=== PATIENT | female | born 1980 | race Hispanic/Latino ===

== ENCOUNTER 2021-04-27 08:15 | Emergency (ER) | payer BC ==
--- OUTSIDE RECORDS SUMMARY | 2021-04-27 08:18 | XMS REPORT | Clinical Summary ---
:1980 Author Organization [facility] Center Address [address] [place] [address] Care Team Providers Name Role Phone MD Shanthi Primary Care Provider Allergies Active Allergy Reactions Severity Noted Date Comments Oxycodone Other (See Comments), GI 09/03/2017 Mitch sea, vomiting, dizzy Intolerance Trazodone GI Intolerance 09/03/2017 Medications Medication Sig Dispensed Refills Start Date End Date Status cholecalciferol, Take 400 Units by 0 Active vitamin D3, mouth. (VITAMIN D3) 4,000 units tab tablet ibuprofen Take 200 mg by 0 Activ e (ADVIL,MOTRIN) mouth every 8 200 mg (eight) hours as tabletIndication needed. s: pain vit D3/folic Take 1 tablet by 0 Active acid/B2/B6/B12 mouth daily. (FOLGARD ORAL) aspirin 81 mg EC Take 81 mg by 0 Active tablet mouth daily. omeprazole Take 20 mg by 0 Activ e (PriLOSEC) 20 mg mouth daily. capsule bisacodyl Take 1 tablet by 0 Act diana (EX-LAX ULTRA mouth as needed. ORAL) FABB 2.2-25-1 mg TAKE 1 TABLET BY 11 01/30/2019 Active tab MOUTH DAILY. TRINTELLIX 20 mg Take 1 tablet by 0 02/15/2019 Active tab mouth daily. L. Take 1 tablet by 0 Act diana acidophilus/Bifi mouth daily. d. animalis (DAILY PROBIOTIC ORAL) diazePAM Take 2 mg by 0 Active (VALIUM) 2 mg mouth as needed. tablet ALPRAZolam Take 0.5 mg by 0 Acti ve (XANAX) 0.5 mg mouth at bedtime. tablet sodium,potassium Take 1 Package by 354 mL 0 11/05/201908/11 Discontinued ,mag sulfates mouth See Admin 21 (Reorder) (Suprep Bowel Instructions. Prep Kit) Please take as 17.5-3.13-1.6 per Suprep gram instructions solrIndications: Colonoscopy planned, Personal history of other malignant neoplasm of colon sodium,potassium Take 1 Package by 354 mL 0 08/22/202008/11 ,mag sulfates mouth See Admin 21 (Suprep) Instructions for 17.5-3.13-1.6 2 days. Please gram take as per solrIndications: Suprep Colonoscopy instructions planned, Personal history of other malignant neoplasm of colon Active Problems Problem Noted Date Personal history of colonic polyp 11/06/2019 Overview: Added automatically from request for angélica mack [id number] Colon cancer 02/04/2018 Overview: Added automatically from request for angélica mack [id number] Mandatory [facility] ICD-10 2020 UPDATE Anxiety 10/18/2017 Mass of colon 10/17/2017 Cancer of ascending colon 10/06/2017 Cancer Staging: Pathologic stage from : Stage I (pT1, pN0, cM0) - Unsigned Overview: Added automatically from request for angélica mack [id number] Mandatory [facility] ICD-10 2020 UPDATE Encounters Date Type Specialty Care Team Description 08/25/2020 Anesthesia Event Endoscopy Akhil Mancini MD Amakwe, Pamela, CRNA 08/25/2020 Hospital Encounter Endoscopy Javid Minaya history of colonic polyp (Primary Dx); MD Jocelyn Colon cancer, n ot otherwise specified 08/25/2020 Surgery Endoscopy Javid Minaya MD COLONOSCOPY PROXIMAL TO SPLENIC FLEXURE WITH BIOPSY 08/25/2020 Travel 08/24/2020 POEM Appointments Anesthesiology Shanthi No Prakash Drake MD 08/24/2020 Clinical Support Infectious Diseases Shanthi Arias bservation and Prakash MD evaluation for Norma Herrera suspected exp osure Artie, MA to other biological agen t (Primary Dx) 08/24/2020 Travel 08/23/2020 Anesthesia Event Anesthesiology Mike Velasco, RN 08/22/2020 Orders Only Endoscopy Karlene Gan, Colonoscopy planned; SERVICE CLEANER Personal histor y of other malignant neoplasm of colon 08/19/2020 Orders Only GastroenterElvia meng Rose M, Pre pro cedural Hepatology & Nutrition SERVICE CLEANER labor atory examination (Primary Dx) 08/18/2020 Telephone GastroenterologyBianca Rey Hepatology & Nutrition SAMMY Florentino 07/27/2020 Orders Only Infectious Diseases Alli, SARS-CoV -2 MD Roddy vaccination after 04/27/2020 Immunizations Name Administration Dates Next Due Influenza, Quadrivalent 03/26/2016 Influenza, Unspecified 02/14/2018 Surgical History Surgery Date Site/Laterality Comments KS EXPLORATORY OF ABDOMEN 10/18/2017 Abdomen/Midline Proced ure: EXPLORATORY CELIOTOMY (LAPAROTOMY); S urgeon: Prakash Maki MD; Location: MAIN OR; Servic e: SURG ONC - COLORECTAL Medical devices from this surgery are in t he Implants section. KS REMVL COLON & TERM ILEUM 10/18/2017 Abdomen/Midline Proc edure: PARTIAL COLECTOMY, W/ILEOCOLOSTOMY right hemicolect brii; Surgeon: Prakash Reddy MD; Location: MAIN O R; Service: SURG ONC - COLOR ECTAL Medical devices from this surgery are in t he Implants section. KS COLONOSCOPY FLX DX 08/21/2018 N/A Procedure: DIAGNOSTIC FLEXIBLE W/COLLJ SPEC WHEN PFRMD COLONOSC OPY PROXIMAL TO SPLENIC FLEXURE; Surgeo n: Javid Minaya MD; Loca tion: MAIN ENDOSCOPY; Serv ice: GASTROENTEROLOGY [place] COLONOSCOPY FLX DX 11/06/2019 N/A Procedure: DIAGNOSTIC FLEXIBLE W/COLLJ SPEC WHEN PFRMD COLONOSC OPY PROXIMAL TO SPLENIC FLEXURE; Surgeo n: Javid Minaya MD; Loca tion: MAIN ENDOSCOPY; Serv ice: GASTROENTEROLOGY ; f/up 2 years KS COLONOSCOPY W/BIOPSY 08/25/2020 N/A Procedur e: FLEXIBLE COLONOSCOPY SINGLE/MULTIPLE PROXIMAL TO SPLE JENNA FLEXURE WITH BIOPSY; Surgeon : Javid Minaya MD; Loca tion: MAIN ENDOSCOPY; Serv ice: GASTROENTEROLOGY Medical History Medical History Date Comments Chronic diarrhea Adenocarcinoma of ascending colon 10/18/2017 INVASI VE, MODERATELY DIFFERENTIATED ADENOCARCINOMA ARISI NG IN A 4.3 CM VILLOUS ADENOMA WITH HIGH GRADE DYSPLASIA Villous adenoma of colon 09/23/2017 s/p polypectomy Benign polyp of colon 09/23/2017 s/p polypectomy Tubular adenoma of colon 11/06/2019 s/p polypectomy Family History Medical History Relation Name Comments -Gastrointestinal Cousin bile duct canc er; maternal (Esophagus, Liver, Bile first co usin Duct, Stomach, Pancreas, Colon, Rectum, Anus Colon cancer Father -Gastrointestinal Paternal Grandfather esophagea l vs stomach cancer (Esophagus, Liver, Bile Duct, Stomach, Pancreas, Colon, Rectum, Anus Cervical cancer Paternal Grandmother Relation Name Status Comments Cousin Father Paternal Grandfather Paternal Grandmother Social History Tobacco Use Types Packs/Day Years Used Date Former Smoker Cigarettes 1 6 Quit: 10/18/19 04 Smokeless Tobacco: Never Used Tobacco Cessation: Counseling Given: No Sex Assigned at Date Recorded Not on file Obstetrics History Last Filed Vital Signs Vital Sign Reading Time Taken Comments Blood Pressure 112/79 08/25/2020 8:55 AM CDT Pulse 70 08/25/2020 8:55 AM CDT Temperature 36 C (96.8 F) 08/25/2020 8:35 AM CDT Respiratory Rate 17 08/25/2020 8:55 AM CDT Oxygen Saturation 99% 08/25/2020 8:55 AM CDT Inhaled Oxygen Concentration - - Weight 68.4 kg (150 lb 12.7 oz) 08/25/2020 7:12 AM CDT Height - - Body Mass Index 24.34 09/27/2017 8:43 AM CDT Plan of Treatment Date Type Specialty Care Team Description 11/05/2021 Clinical Support Infectious Diseases Prakash Maki MD [address] [place] [address] 11/07/2021 Hospital Encounter Endoscopy Javid Minaya MD [facility] [place], [place] [address] 11/07/2021 Surgery Endoscopy Javid Minaya DIAGNOSTIC FL THIERRY Banks MD COLONOSCOPY PROXIMAL [address] TO SPLENIC FLE XURE [place], [place] [address] 08/26/2023 Hospital Encounter Endoscopy Javid Minaya MD [address] [place], [place] [address] Name Priority Associated Diagnoses Date/Time DIAGNOSTIC FLEXIBLE Colon cancer, not 11/07/2021 9:40 AM CDT COLONOSCOPY PROXIMAL TO otherwise specif ied SPLENIC FLEXURE Personal history of colonic polyp DIAGNOSTIC FLEXIBLE Personal history of COLONOSCOPY PROXIMAL TO colonic polyp SPLENIC FLEXURE Health Maintenance Due Date Last Done Comments COVID-19 Vaccination (1) 10/30/1983 Implants Implanted Type Area Fire Equipment Repairer Inspector Device Shelf Model / Identifier Expiration Date Ser ial / Lot [employer] - [id number] Implant GENZYME 09/10/19 20 [id number] / Implanted: Qty: 1 on 10/18/2017 by Yomaira Maki MD at [facility] BIOSURGERY / [id number] Procedures Procedure Name Priority Date/Time Associated Comments Diagnosis PATHOLOGY BIOPSY Routine 08/25/2020 8:16 Colon cancer, not Re sults for this INTERPRETATION AM CDT otherwise specified proced ure are in the results section. FLEXIBLE COLONOSCOPY 08/25/2020 7:43 Colon cancer, no t PROXIMAL TO SPLENIC AM CDT otherwise specified FLEXURE WITH BIOPSY ENDOSCOPY NOTE RESULTS 08/25/2020 7:41 R esults for this AM CDT procedure are i n the results section. COVID-19 (SARS-COV-2) Routine 08/24/2020 8:02 Observation and Results for this PCR-ASYMPTOMATIC [facility] AM CDT evaluation for proced ure are in suspected exposure the resul ts to other biological section. agent .GLOMERULAR FILTRATION Routine 08/22/2020 12:11 Pre procedural Results for this RATE PM CDT laboratory procedure are i n examination the results section. SERUM CREATININE Routine 08/22/2020 12:11 Pre procedural Resul ts for this PM CDT laboratory procedure are i n examination the results section. SERUM CREATININE Routine 08/22/2020 12:11 Pre procedural PM CDT laboratory examination BLOOD UREA NITROGEN Routine 08/22/2020 12:11 Pre procedural Re sults for this PM CDT laboratory procedure are i n examination the results section. after 04/27/2020 Results Pathology Biopsy Interpretation (08/25/2020 8:16 AM CDT) Pathologist Sig nature Diagnosis A: Rectum, 2 mm polyps x2, biopsy: [facility] Gross Description A: [facility] Rectum, 2mm rectum polyps x 2: Consists of 2 pink soft tissue fragments measuring 0.3 cm each. Filtered, entirely submitted in A1. JA Disclaimer "Some tests reported [facility] here may have been developed and performance characteristics determined by [facility]. These tests have not been specifically cleared or approved by the U.S. Food and Drug Administration. If applicable, controls were reviewed and showed appropriate reactivity." Specimen Tissue - Rectum Performing Organization Address City/State/[place] [address] [address] [facility] ENDOSCOPY NOTE RESULTS (08/25/2020 7:41 AM CDT) Narrative This result has an attachment that is no t available. Procedure Note Javid Minaya MD - 08/25/2020 7:41 AM CDT Patient Name: Naya Gaona Gender: Female Age: 39 Procedure Date No Time: 08/25/2020 Instrument Name: [id number] COLON - CF Proceduralist(s): JAVID GRAJEDA CH, MD Procedure Name: Colonoscopy Scope In: 8:01:24 AM Scope Out: 8:17:12 AM Scope Withdrawal Time 0 hours 12 minutes 38 seconds Total Procedure Duration Time 0 hours 15 minutes 48 seconds Indications: High risk colo n cancer surveillance: Personal history of col on cancer post R hemicolectomy Medications: TIVA Procedure Description: Pre-Anesthesia Assessment: - Prior to the procedure, a History and Physical was performed, and patient medications and allergies were reviewed. The risks and benefits of the procedure and the sedation options and risks were discussed with the patient. All questions were answered and i nformed consent was obtained. Patient identification and proposed procedure were verified by the physici an in the pre-procedure area. Prophylactic A ntibiotics: The patient does not require prophy lactic antibiotics. Prior Anticoagulants : The patient has taken no anticoagulant or antiplatelet agents. ASA Grade Assessment: I - A normal, healthy patient. After reviewing the risks and benefits, the patient was deemed in sati sfactory condition to undergo the procedure. The anesthesia plan was to use TIVA. Immediately pr ior to administration of medications, the patient wa s re-assessed for adequacy to receive sedatives. The heart rate, respiratory rate, oxygen saturations, b lood pressure, adequacy of pulmonary ventilation, a nd response to care were monitored throughout the procedure. The physical status of the patient wa s re-assessed after the procedure. Informed conse nt was obtained. Throughout the procedure, the patient's blood pressure, pulse, and oxygen saturat ions were monitored continuously.The Olympus CF-HQ1 [id number] ([id number]) adult colonoscope was introduced thr ough the anus and advanced to the ileocolonic an astomosis. The anastomosis and the rectum were ph otographed. The colonoscopy was performed with out difficulty. The patient tolerated the procedure well. The quality of the bowel preparation wa s excellent. Findings: Diverticula we re found in the sigmoid colon. Two polyps wer e found in the rectum. The polyps were 2 to 3 mm in size. There was evid ence of a prior unho-wz-pyoh ileo-colonic a nastomosis in the transverse colon. Complications: No immediate c omplications. Estimated Blood Loss: Estimated bloo d loss: none. Post Procedure Diagnosis: - Diverticulos is in the sigmoid colon. - Two 2 to 3 m m polyps in the rectum. - Rhle-lj-rhqn ileo-colonic anastomosis. - No specimens collected. Recommendation: - Repeat colon oscopy in 3 years for surveillance. - Patient has a contact number available for emergencies. T he signs and symptoms of potential delayed compli cations were discussed with the patient. Retur n to normal activities tomorrow. Written discha rge instructions were provided to the patient. - Resume previ ous diet. - Continue pre sent medications. - Discharge pa tient to home. Attending Participation: I personally p erformed the entire procedure. JAVID MINAYA MD 08/25/2020 8:27:38 AM This report has been signed electronical ly. Number of Addenda: 0 COVID-19 (SARS-CoV-2) PCR-Asymptomatic (08/24/2020 8:02 AM CDT) COVID19 (SARS Not Detected Not Detected [facility] CoV-2) Result Comment: [facility] This test is a qualitative r everse-transcriptase polymerase chain reaction (RT- PCR) developed for the Deborah QAMAR 6800 system and intended for the detection of SARS CoV-2 RNA in human nasopharyngeal specimens from patients who meet COVID-19 clinical and/or epidemiological crite gio. This assay has been approved by the FDA for use only under Emergency Use Authorization (EUA) in laboratories that have been CLIA-certified to perform moderate-complexity and high-complexity tests. The performance characteristics of this assa y were verified by the Microbiology Laboratory at [facility], CLIA Accreditation #: [id number] and CAP Accreditation #: [id number]. Results must be interpreted within the context of all relevant clinical and laboratory findings and shou ld not form the sole basis for a diagnosis or treatment decision. "Presumptive Positive" resul ts are due to partial amplification of SARS-CoV-2 targets and indicates low amounts of virus present in the specimen at or near the limit of detection. Regardless, individuals with "Presumptive Positive" results should be managed per institutional gu idelines as individuals positive for SARS-CoV-2 virus, including use of appropriate infection control protocols. Internal controls are includ ed to assess for possible amplification inhibitors. If inhibition is detected, testing is repeated and if inhibition is confirmed the specimen is resulted as "Invalid". When an "Invalid" result occur, it is recommended to wait 3 days before submitting a new specimen for uziel ting if clinically indicated. COVID19 SARS SERVICE CLEANER Swab [facility] Source CANCER CENTER COVID19 SARS Pre-Out of OR [facility] Indication Procedure [facility] CENTER Specimen Nasopharyngeal Swab Performing Organization Address City/State/ZIP Code Phon e Number [facility] CANCER Unless otherwise noted, [place] [address] CENTER all lab tests performed by: Division of Pathology and Laboratory Medicine [address] Diane (ABNORMAL) .Serum Creatinine (08/22/2020 12:11 PM CDT) Pathologist Sig nature Creatinine 0.96 (H)Comment: 0.51 - 0.95 mg/dL ASH Testing performed at [facility], [facility] [facility], [place] [address] Specimen Blood Narrative ASH - 08/22/2020 12:51 PM CDT Please schedule at [place] location Performing Organization Address City/State/ZIP Code Phon e Lyla [facility] [place] [address] [address] [facility] Glomerular Filtration Rate (08/22/2020 12:11 PM CDT) Pathologist Sig nature eGFR-AA 85 >=60 mL/min/1.73 ASH Comment: sq. m Normal eGFR >= 60 mL/min/1.73 m2 Note: The eGFR is calculated using the CKD-EPI equation. The eGFR declines with age. eGFR <60 mL/min/1.73 m2 is considered as "decreased". This equation should only be used for patients 18 and older. According to the National [facility]'s Kidney Disease Outcome Quality Initiative (KDOQI) classification and 2012 Kidney Disease Improving Global Outcomes (KDIGO) Clinical Practice Guideline, the stage of CKD should be categorized based on estimated GFR. Stage Description GFR mL/min/1.73 m2 1 Normal or high GFR >=90 2 Mildly decreased GFR 60-89 3a Mildly to moderately decreased GFR 45-59 3b Moderately to severely decreased GFR 30-44 4 Severely decreased GFR 15-29 5 Kidney failure <15 Testing performed at [facility], [address] [facility], [place] [address] eGFR-TIMOTHY 74 >=60 mL/min/1.73 ASH Comment: sq. m Normal eGFR >= 60 mL/min/1.73 m2 Note: The eGFR is calculated using the CKD-EPI equation. The eGFR declines with age. eGFR <60 mL/min/1.73 m2 is considered as "decreased". This equation should only be used for patients 18 and older. According to the National [facility]'s Kidney Disease Outcome Quality Initiative (KDOQI) classification and 2012 Kidney Disease Improving Global Outcomes (KDIGO) Clinical Practice Guideline, the stage of CKD should be categorized based on estimated GFR. Stage Description GFR mL/min/1.73 m2 1 Normal or high GFR >=90 2 Mildly decreased GFR 60-89 3a Mildly to moderately decreased GFR 45-59 3b Moderately to severely decreased GFR 30-44 4 Severely decreased GFR 15-29 5 Kidney failure <15 Testing performed at [facility], [address] [facility], [place] [address] Specimen Blood Narrative ASH - 08/22/2020 12:51 PM CDT Please schedule at [place] location Performing Organization Address City/[facility]/[place] [address] [address] [facility] BUN (08/22/2020 12:11 PM CDT) Pathologist Sig nature BUN 14Comment: Testing 6 - 23 mg/dL ASH performed at [facility], [address] [facility], [place] [address] Specimen Blood Narrative ASH - 08/22/2020 12:51 PM CDT Please schedule at [place] location Performing Organization Address City/[facility] [place] [address] [address] [facility] after 04/27/2020 Insurance Payer Benefit Plan / Subscriber ID Effective Dates Phone Addre ss Type Group BLUE CROSS BCBS PPO POS [id number] 2019-Present [address] PPO BLUE SHIELD OUT OF STATE [place], [place] GENERIC [address] (Home) [place] [phone] Naya Gaona Personal/Family Self [address] (Home) [place] [phone] Naya Gaona Personal/Family Self [address] (Home) [place] [id number] Advance Directives Code Status Date Activated Date Inactivated Comments Full Code 10/18/2017 4:01 PM 10/22/2017 4:09 PM Care Teams 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
--- OUTSIDE RECORDS SUMMARY | 2021-04-27 08:18 | XMS REPORT | Continuity of Care Document ---
:1980 Author Organization [facility] t Address [address] [place] [address] Care Team Providers Name Role Phone GREGORIO Primary Care Physician Unavailable Jocelyn MINAYA Attending Clinician Unavailable WILBERT Attending Clinician Unavailable Jocelyn Minaya MD Attending Clinician Rufus Mancini MD Attending Clinician Wilbert VELASCO Attending Clinician Gregorio MEAD Attending Clinician GREGORIO Attending Clinician Unavailable Artie Herrera MA Attending Clinician Unavailable Krista CHRISTIANSON Attending Clinician Unavailable Keshia GAN Attending Clinician Unavailable [facility] Attending Clinician Unavailable Unknown Attending Clinician Unavailable UNKNOWN Attending Clinician Unavailable Keshia Gan NP Attending Clinician Mishel Valenzuela RN Attending Clinician Unavailable Alli MEAD Attending Clinician DANIELA Attending Clinician Unavailable NANI Attending Clinician Unavailable MARY Attending Clinician Unavailable Jocelyn MINAYA Admitting Clinician Unavailable Payers Payer Name Policy Type Policy Number Effective Date Expiration Date S nataliya [place] POS [id number] 2018 2019 00:00:0 0 00:00:00 Problems Condition Condition Condition Status Onset Resolution Last Treating Co mments Source Name Details Category Date Date Treatment Clinician Date Personal Personal Disease Active Overview: history of history of 6-26 Formattin Anderso colonic colonic 00:00: g of this n polyp polyp 00 note might be different from the original. Added automatic ally from request for surgery [id number] Colon Colon Disease Active Overview: cancer cancer 9-25 Formattin Anderso 00:00: g of this n 00 note might be different from the original. Added automatic ally from request for surgery [id number] datory [facility] ICD-10 2020 UPDATE Anxiety Anxiety Disease Active 6-08 Anderso 00:00: n 00 Mass of Mass of Disease Active MD colon colon 6-07 Anderso 00:00: n 00 Cancer of Cancer of Disease Active Overview: ascending ascending 5-27 Formattin A nderso colon colon 00:00: g of this n 00 note might be different from the original. 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 1- ity of 00:00: [place] [address] [place] [address] Branch MTHFR MTHFR Disease Active [facility] mutation mutation ity of [facility] Allergies, Adverse Reactions, Alerts Allergy Allergy Status Severity Reaction(s) Onset Inactive Treating Comm ents Source Name Type Date Date Clinician NO KNOWN Drug Active Univers ALLERGIE Class ity of [facility] Family History Family Member Diagnosis Comments Start Date Stop Date Source Cousin -Gastrointestinal MD Momo barajas (Esophagus, Liver, Bile Duct, Stomach, Pancreas, Colon, Rectum, Anus Natural father Colon cancer MD Sanchez son Paternal grandfather -Gastrointestinal MD Lopez (Esophagus, Liver, Bile Duct, Stomach, Pancreas, Colon, Rectum, Anus Paternal grandmother Cervical cancer MD Lopez Social History Social Habit Start Date Stop Date Quantity Comments Source Exposure to Not sure University of SARS-CoV-2 (event) [facility] Alcohol intake 2018-01-16 2018-01-16 Current drinker Univvelma rsity of 00:00:00 00:00:00 of alcohol [facility] (finding) [place] Cigarettes smoked 2017-10-17 2017-10-17 MD Momo barajas current (pack per 00:00:00 00:00:00 day) - Reported Cigarette 2017-10-17 2017-10-17 MD Lopez pack-years 00:00:00 00:00:00 Tobacco use and 2017-10-17 2017-10-17 Smokeless MD Fox on exposure 00:00:00 00:00:00 tobacco non-user Alcohol Comment 2016-03-26 2016-03-26 rarely = Universit y of 00:00:00 00:00:00 previous heavy [facility] use [place] History of tobacco 2012-05-13 Smoker Univer marcey of use 00:00:00 [facility] Sex Ass[birth year] At [birth year] MD Fox on 00:00:00 00:00:00 Smoking Status Start Date Stop Date Source Former smoker 2018-01-16 00:00:00 2018-01-16 00:00:00 [facility] Medications Ordered Filled Start Stop Current Ordering Indication Dosage Frequency Signature Comments Components Source Medication Medication Date Date Medication? Clinician (SIG) Name Name ALPRAZolam Yes .5mg Take 0.5 MD (XANAX) 0.5 4-15 mg by Anderso mg tablet 09:10: mouth at n 24 bedtime. cholecalcif Yes 400U Take 400 MD [place], 4-15 Units by Anderso vitamin D3, 09:10: mouth. n (VITAMIN 24 D3) 4,000 units tab tablet ibuprofen Yes pain 200mg Take 200 MD (ADVIL,MOTR 4-15 mg by Anderso IN) 200 mg 09:10: mouth n tablet 24 every 8 (eight) hours as needed. vit Yes 1{tbl} Take 1 MD D3/folic 4-15 tablet by Ruddy o acid/B2/B6/ 09:10: mouth n B12 24 daily. (FOLGARD ORAL) aspirin 81 Yes 81mg Take 81 mg M D mg EC 4-15 by mouth Anderso tablet 09:10: daily. n 24 omeprazole Yes 20mg Take 20 mg M D (PriLOSEC) 4-15 by mouth Daniel so 20 mg 09:10: daily. n capsule 24 bisacodyl Yes 1{tbl} Take 1 MD (EX-LAX 4-15 tablet by Anderso ULTRA ORAL) 09:10: mouth as n 24 needed. L. Yes 1{tbl} Take 1 MD acidophilus 4-15 tablet by And erso /Bifid. 09:10: mouth n animalis 24 daily. (DAILY PROBIOTIC ORAL) diazePAM Yes 2mg Take 2 mg MD (VALIUM) 2 4-15 by mouth Daniel so mg tablet 09:10: as needed. n 24 sodium,pota 0 2020- No Personal 1{packa Take 1 MD ssium,mag 4-12 04-15 history of ge} Package by Anderso sulfates 00:00: 04:59 other mouth See n (Suprep) 00 :00 malignant Admin 17.5-3.13-1 neoplasm of Instructio .6 gram colon ns for 2 solr days. Please take as per Suprep instructio ns sodium,pota 2020- No Personal 1{packa Take 1 MD ssium,mag 6-25 04-12 history of ge} Package by Anderso sulfates 00:00: 00:00 other mouth See n (Suprep 00 :00 malignant Admin Bowel Prep neoplasm of Instructio Kit) colon ns. 17.5-3.13-1 Please .6 gram take as solr per Suprep instructio ns TRINTELLIX 2018-05 Yes 1{tbl} Take 1 MD 20 mg tab 0-06 tablet by Daniel so 00:00: mouth n 00 daily. FABB Yes TAKE 1 MD 2.2-25-1 mg 9-20 TABLET BY And erso tab 00:00: MOUTH n 00 DAILY. Folic Yes [id number] 1{tbl} Take 1 Uni vers Acid-Vit 9-28 tablet by ity of B6-Vit B12 00:00: mouth [place] (FOLGARD 00 daily. Medical RX) Branch 2.2-25-1 mg Tab pantoprazol Yes 20mg Take 1 Univ ers e 20 mg EC 9-21 tablet by ity of tablet 00:00: mouth 2 [place] 00 (two) Medical times Branch daily. Lactobacill Yes [id number] 1{capsu Take 1 Univers us 9-20 le} capsule by ity of rhamnosus 00:00: mouth [place] GG 00 daily. Medical (CULTURELLE Branch ) 15 billion cell CpSP aspirin 81 2017- Yes 81mg Take 81 mg U nivers mg EC 9-06 by mouth ity of tablet 19:21: daily. [place] 00 Medical Branch pantoprazol Yes [id number] 20mg Take 1 Univers e 9-06 tablet by ity of (PROTONIX) 00:00: mouth [place] 20 mg EC 00 daily. Medical tablet Branch fluconazole Yes [id number] Take 1 tab Univers (DIFLUCAN) 9-06 PO every ity o f 150 mg 00:00: other day [place] tablet 00 for 3 Medical doses Branch nystatin Yes [id number] 717860T Take 5 mL Univers 100,000 9-06 by mouth 4 ity of unit/mL 00:00: (four) [place] suspension 00 times Medical daily. Branch ALPRAZolam Yes 1mg Take 1 mg Un leila 1 mg 24 hr 4-09 by mouth. ity of tablet 00:00: [place] 00 Medical Branch clonazePAM 2016-05 Yes TK 1/2 TO Un leila 0.5 mg 0-11 1 T PO HS ity of tablet 00:00: PRN [place] Medical Branch lamoTRIgine Yes 1{tbl} Take 1 Un leila 100 mg 3-08 tablet by ity of tablet 00:00: mouth [place] 00 daily. Medical Branch traZODONE Yes Univers 50 mg 2-23 ity of tablet 00:00: [place] [id number] Medical Branch Immunizations Ordered Filled Immunization Date Status Comments [facility] e Immunization Name Name Influenza, 2018-02-14 Completed MD Lopez Unspecified 00:00:00 Influenza, 2016-03-26 Completed MD Lopez Quadrivalent 00:00:00 Influenza Virus 2016-03-26 Completed Universit y of Vaccine Quad IM 3+ 00:00:00 [facility] Branch Vital Signs Vital Name Observation Time Observation Value Comments Source WEIGHT 2020-08-25 07:12:00 68.4 kg WEIGHT 2020-08-25 07:12:00 68.4 kg Systolic blood pressure 2020-08-25 13:55:00 112 mm[Hg] MD Lopez Diastolic blood pressure 2020-08-25 13:55:00 79 mm[Hg] MD Lopez Heart rate 2020-08-25 13:55:00 70 /min MD Daniel masterson Respiratory rate 2020-08-25 13:55:00 17 /min MD Yogesh reza Oxygen saturation in 2020-08-25 13:55:00 99 /min MD Lopez Arterial blood by Pulse oximetry Body temperature 2020-08-25 13:35:00 36 Lindsey MD Zuñiga juaquin Body weight 2020-08-25 12:12:00 68.4 kg MD Daniel masterson BMI 2020-08-25 12:12:00 24.34 kg/m2 MD Daniel masterson Procedures Procedure Date / Time Performed Performing Clinician [facility] e PATHOLOGY BIOPSY 2020-08-25 13:16:00 Javid Minaya MD on INTERPRETATION FLEXIBLE COLONOSCOPY PROXIMAL 2020-08-25 12:43:00 Javid Minaya MD TO SPLENIC FLEXURE WITH BIOPSY ENDOSCOPY NOTE RESULTS 2020-08-25 12:41:52 Javid Minaya MD COVID-19 (SARS-COV-2) 2020-08-24 13:02:00 Valeriano Woodward MD PCR-ASYMPTOMATIC BLOOD UREA NITROGEN 2020-08-22 17:11:00 Walt Gan MD SERUM CREATININE 2020-08-22 17:11:00 Walt Gan MD SERUM CREATININE 2020-08-22 17:11:00 Walt Gan MD .GLOMERULAR FILTRATION RATE 2020-08-22 17:11:00 Walt Gan MD DIAGNOSTIC FLEXIBLE Javid Minaya MD COLONOSCOPY PROXIMAL TO SPLENIC FLEXURE Plan of Care Planned Activity Planned Date Details Comments Source Future Scheduled Test 1983-10-30 00:00:00 COVID-19 Vaccination MD Lopez (1) [code = COVID-19 Vaccination (1)] Future Appointment 2023-08-26 00:00:00 Javid Minaya MD, [address] [place] [address] Future Appointment 2021-11-07 09:40:00 Juvencio Barragan MD, [place] [address] Future Appointment 2021-11-07 09:40:00 Juvencio Barragan [place], [place] [address] Encounters Start End Encounter Admission Attending Care Care Encounter Source Date/Time Date/Time Type Type Clinicians Facility Department ID 2019-12-02 Outpatient VANDA DC [id number] 08:58:29 Andkenyetta bañuelos 2019-11-06 Outpatient MINAYA, MDA Linda/Hep/Nu [id number] 15:54:08 JAVID bañuelos 2019-11-06 Outpatient AMTRICIA, MDA MDA [id number] 14:37:14 TORRES bañuelos 2019-11-06 Outpatient WILBERT, MDA MDA [id number] 14:37:14 TORRES bañuelos 2020-08-25 2020-08-25 Outpatient JESS MINAYA, MDA Linda/Hep/Nu [id number] 06:55:00 09:10:00 JAVID bañuelos 2020-08-24 2020-08-24 Outpatient JESS ALDO-B MDA MDA [id number] 07:56:46 08:45:45 Ruddy ZAMUDIO 2020-08-22 2020-08-22 Outpatient JESS GAN, MDA MDA [id number] MD 12:11:07 12:14:53 WALT bañuelos 2020-08-22 2020-08-22 Teletype Technician Vls-Lab [facility] [id number] Univers 11:44:50 11:59:50 Visit Unknown, Attending SPECIALTY [id number] it of [facility] [id number] [facility] AT [phone] [address] 2020-08-22 2020-08-22 Outpatient R [facility] [id number] Univers 11:45:00 11:45:00 [id number] 2020-08-22 Outpatient R UNKNOWN, [facility] [id number] Univers 11:45:00 11:45:00 ATTENDING ity [facility] 2019-12-03 2019-12-03 Outpatient JESS DANIELA, MDA MDA [id number] 11:30:00 23:59:00 GAVIN bañuelos 2019-12-03 2019-12-03 Outpatient EL ALDO-B MDA MDA [id number] 12:09:02 13:12:51 Ruddy ZAMUDIO 2019-11-06 2019-11-06 Outpatient JESS MINAYA VANDA Linda/Hep/Nu 357 [id number] 13:24:59 16:55:00 JAVID bañuelos 2019-11-05 2019-11-05 Outpatient CHRIS GIBSON MDA MDA [id number] 09:38:24 23:59:00 Ruddy bañuelos 2019-11-05 2019-11-05 Outpatient JESS VIVAS MDA MDA [id number] 09:21:47 09:21:47 Ruddy ZAMUDIO 2019-11-05 2019-11-05 Outpatient JESS VIVAS MDA MDA [id number] 07:11:37 07:11:37 Ruddy ZAMUDIO 2019-11-03 2019-11-03 Outpatient JESS HERNANDEZ MDA MDA [id number] 00:00:00 00:00:00 TAYO bañuelos Results Test Description Test Time Test Comments Results Result Comments Source Pathology Biopsy Interpretation 2020-08-26 18:20:00 Test Item Value Reference Range Interpretation Comme nts Diagnosis d5sqbCQnPIAifGB3DvOcYZMmk8coc8DolRDhoOQkPUtypBItyyLgfy71vIL0kV80UK6mEDEsTdM3EIRp vxQ4Qkb5KPZfGLZecGXxT255i4chl2hrajHhwTH7yNhlZHSvJUVgGKxzBFGgWmSfVFazYmHhzWMgAMKl YL4oZNVptJindfG1GovyPnzuvRG0ZoeaNKKqdThxFFW (test code iYHRzUOewEBnqvL7vNMTwTQz7oHIspGwhu1WiTyFjy4v5rMUxSXrkK G0pdQZrpF== = 34) Gross e1amqJMxKGGsiITGFOYaRCdktvAqTDDruFLiL0LfbedzYOdfJR7wBE3ivDwslLDkuDJqZG2EESVuGmOy ORXbrCIueiMqNpKzOGEooRYizDH5TVWpGO3skpqhMJqpEEkeXBXmynS4VJVbtHFiN0QoWBXhPG7ewbby SDV0LSafiZ4hnuUZPhttMt7skZFytCqtCcBzHiGyTTE Descriptio gNJWgENUeaFpdPLXuATe4eI4YBpwiRNF3KBECJbncEJNdTY3Fc7hqYNSmcSWdNCB7CPcohKOeSDHqTLN wGNo2EBDcMRugqQGtMU1juZnlCppfuEzmy4BjrVZwIJczSIOpIJPbNGghGHImQT5YExRtNMNcDoY5EWi aVTw6AFd0CM7QHsUvJPZgQWw2NlYaMlDgDRi4JCndMS n (test 8VKBnmQnHlBXEmMUR2HEF0LsVjHFMxKjEmXPKqVJCgERqbJIyknhZjGKNkENStVXlxFnnhQEkqF04sxH qozG6hFmtjlvVmPLV4VIUrzqQRRosdzZAvdzrqsPnoCwAifBTyUiGoMCapwPIgbYBsXToxcjDuecaoXD ZOOqfzoRNobUfuWQSqTrAqJzRneHXbYHXfmQ0fvdRit code = JJuLAFipTbmkhU9XLD0EAAdQPJCt64gsLH7eiVaSiFxERSfrhhtd82qlCC5mZHnsBUyGmVkJ74vusZaO N4dPRX5galiSmOuMvNeX72iLGTdpT3qWMNesTBqexZbWGZcwnNltfGzrFGrvVAfaEU3USIltY1nPPSmD MBwmXHxrEGgmKwbIradwQJ8CSreSxjgaQ0zsTYRPMAZ 3356270028 GkvJBcdrrfBcOJ4OQY7ZShFQCA57YmTdKHP7PFgQT6QSpUQ1Pnb7FBu3xDjrImuviwCgaPKjAxTYiY6X HSryRfecwQW8VWdaRenwxU3jgMYXZGZOAogMXbvlvvVwTJ9NQC3EOE5BbGBnYTS9nDJ5WYMVCjwvbOY0 kPR1dN59QFPhBKDhzMYdSCjkF329YYWiGUbmIFm7ljB ) eTYMuYcMdRAidnFqupE4aHVWaX98pc3GZq3XnQHPpFWwtj5qllGmad9TeoWDaSTldFMUzjMAwSCuluC4 kEtTkg9abhVo2AQzootF2NSRmop9SDcgzxK1dPeMvd5ybwAa5RCFYUltqdgS4t6bvbXhyg1MdaZHdLQ1 NCn0= Disclaimer q3sgdVUvSMIfaLGlHmStCJRsCNCob3ekIKDlpDKjMkKaMcKyUfLuNmsmhIAxNTLkErWgt1nel125wDKa b2idJZSlEyI4mYCaEDDwgFIcA176SWElDRbkx7xlb8IdAPNsqUHnw3X0VDSFayjbsPh4kCjcJ86lm7D3 IcmuL8cfEGBjONCxY9SnGD8mZDTkHbs3ILP9HKJ1RKB (test code hXCVgY6HkHF6kFURjkZBnPXr3t8tmwXesLHNzFCV9f4hoAGhsllEpPX1cxa9sfCw3r2ysmrJbOQIrSMU zkDBHKZGyO0XiiIwnMs2sjTo8aUmzOpapSKF8Hxp1UL2tdk70puz7kAocIRQbjkfpXkN4MWaxQTIinkt jOMm3SEjvVHTwfQK3EEHbnXEuC3WbAORqII7fpfd7TM = 9844) W5TLpoAHClSoX6YTJtxEYqGUHzrMnrJKpnw813HCH1XdEdYT7dG4Lgl1N4hC8fiZBhDPZrhFDuKuLaVG Hxtj4ruNKuDSxdc7DbQVR5eiR1oFHvrKLoGYYhRX04Jeyuh5PtQsnqVUS2TILsrpOab7Xhm1fzEkLmpr TvS2msG4LzKYQnCWZnRUXbQsSvhjJty0Tfg3CybRVih Vx5u1ccEBVwSKHdjCwhc5rzMWD2IKVeZ5D6xCSzs4jkDCkrCAYilLM0ktA7QMGrqZLlB3SrjC4cDAVoB B2qjbu5i8gpZMO6ZQhsRYNkKqD7ppN7QMRgjKDdJKKgxHnmSKtpt488LVG8ZhZyTGHsc7KpV6RsgPnhN 06hjKspM49cAVPrvSudtU5xwTnixA9gLfVaJkVhZNyb oZovpVMvkoqxMUgoglV1RJldwomoMSWmOVhjF7frWsSaQNKyuRgqOXinx5FzECMqBVLvChehoeC6QDFX r31uJWFfd1IhPAHnrG3ocXSaGBgtbgFunTW3GHrxggOkKqFvrcWaRRPvuM8tVOUyIM9vXWNmxxNpkz4k qvFsJFOdKWEsU0BjuhilbBtpmbBfTAIusv0asjFrFVK 3NRCPDM1ANFArUKPwv29kVMSfrQfeoD2lmYXminLhPLCyk7IcuW7umMBDFHBfA8spJU5aSUjux0TjzPR ydWTnxTJ7WEGfk6OpWjUxtzOmqZKqlMCqW9ZafMpiW4jcBFGeUDXmioAqbRBjj3CjLMZncXG7pOSlFG3 DVcRYn94nDOSwRFAVkrRiRICqaVsulDH0zjO0xY4eXz FEViRfaMAuiPArEzmmCOIwg652xv3xrzO2YNMvNIIbmtuii1QmJAFdCVFxiZ73ITRlOAHfnc0ffkdetA GvfdPxT1Vlfzg5kL8nMCHnYVwpFQHtZHRxTpMvcJIuQhAeFzEqpHgmoRmrJYhdOmZpBLGjCOikW5bqIk FcZnMyMlxwYXJ9 MD LopezCOVID-19 (SARS-CoV-2) PCR-Asymptomatic [id number] 01:09:58 Test Item Value Reference Range Interpretation Comments COVID19 (SARS Not Detected Not Detected This test is a CoV-2) Result qualitative (test code = reverse-transcr iptase 95354-4) polymerase sowmya n reaction (RT-PC R) developed for t he Deborah QAMAR 680 0 system and inte nded for the detecti on of SARS CoV-2 RNA in human nasophary ngeal specimens from patients who me et COVID-19 clinic al and/or epidemiological criteria. This assay has been approv ed by the FDA for use only under Emergency Use Authorization ( EUA) in laboratories that have been CLIA-certified to perform moderate-comple xity and high-comple xity tests. The performance characteristics of this assay were verified by the Microbiology Laboratory at [facility] [place], CLIA Accreditation # : [id number] and CAP Accreditation # : [id number]. Result s must be interpreted within the context of all relevant clinic al and laboratory find ings and should not form the sole basis for a diagnosis or treatment decis ion. "Presumptive Positive" resul ts are due to partial amplification o f SARS-CoV-2 targ ets and indicates l ow amounts of viru s present in the specimen at or near the limit of detection. Regardless, individuals wit h "Presumptive Positive" resul ts should be manag ed per institutional guidelines as individuals pos itive for SARS-CoV-2 virus, including use o f appropriate inf ection control protoco ls. Internal contro ls are included to ass ess for possible amplification inhibitors. If inhibition is detected, testi ng is repeated and if inhibition is confirmed the specimen is res ulted as "Invalid". W hen an "Invalid" resul t occur, it is recommended to wait 3 days before submitting a ne w specimen for te sting if clinically indicated. COVID19 SARS OUTSIDE SALES REPRESENT[employer]IVE INSURANCE Swab Source (test code = 86993) COVID19 SARS Pre-Out of OR Indication (test Procedure code = 91911) MD Lopez
[2021-04-27 08:56] LABS: Absolute Lymphocytes (CBC) 2.1 K/uL (0.7-4.9); Hematocrit 39.8 % (36.0-45.0); MPV 8.5 fL (7.6-11.3); RBC Red Blood Cell Count 4.13 M/uL (3.86-4.86)
[2021-04-27] MEDS ORDERED: KETOROLAC 30 MG/ML INJ ONE (09:17)
--- NOTE | 2021-04-27 09:21 | RAD REPORT ---
EXAM DESCRIPTION: US - Abdomen Exam Limited - 04/27/2021 9:14 am CLINICAL HISTORY: Abdominal pain. COMPARISON: None. FINDINGS: A 3.3 centimeter gallstone. Mild gallbladder wall thickening. The biliary tree is normal caliber. IMPRESSION: Cholelithiasis Mild gallbladder wall thickening may indicate cholecystitis
[2021-04-27 09:42] LABS: ALT/SGPT 42 U/L (12-78); AST/SGOT 29 U/L (15-37); Albumin 3.5 g/dL (3.4-5.0); Alkaline Phosphatase 70 U/L (45-117); BUN Blood Urea Nitrogen 14 mg/dL (7-18); Bicarbonate 27 mmol/L (21-32); Bilirubin Direct 0.1 mg/dL (0-0.2); Bilirubin Total 0.5 mg/dL (0.2-1.0); Glucose Level 77 mg/dL (74-106); Lipase 191 U/L (73-393); Potassium 3.8 mmol/L (3.5-5.1); Protein, Total 6.9 g/dL (6.4-8.2); Sodium Level 142 mmol/L (136-145)
[2021-04-27 11:02] LABS: Urine Blood 3+ (Negative); Urine Glucose Negative (Negative); Urine Protein Negative (Negative); Urine Specific Gravity 1.025 (1.005-1.030)
[2021-04-27 12:14] LABS: Urine Bacteria >50 /HPF (<20)
--- NOTE | 2021-04-27 12:16 | EDPHYS ---
Physician Documentation [facility] Name: Naya Gaona Age: 40 yrs Sex: Female : 1980 Arrival Date: 04/27/2021 Time: 08:16 Bed 8 Private MD: ED Physician Remberto Kilpatrick HPI: 04/27 09:02 This 40 yrs old Female presents to ER via Ambulatory with complaints of kb Abdominal Pain. 09:02 The patient presents with abdominal pain that is diffuse. Onset: The symptoms/episode kb began/occurred 2 week(s) ago. The symptoms do not radiate. Associated signs and symptoms: none. The symptoms are described as intermittent. Modifying factors: The symptoms are alleviated by nothing, the symptoms are aggravated by nothing. Severity of pain: At its worst the pain was moderate in the emergency department the pain has improved. The patient has not experienced similar symptoms in the past. The patient has been recently seen by a physician: the patient's primary care provider. Pt reports intermittent abd pain that started a few weeks ago. Reports she was seen by pcp and had tenderness upon palpation to gallbladder area. No tenderness upon exam at this time. 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 Flu vaccine status is unknown. - Social history:: Smoking status: Reported history of juuling and/or vaping. Patient uses alcohol, occasionally. ROS: 09:01 Constitutional: Negative for fever, chills, and weight loss. kb 09:01 Abdomen/GI: Positive for abdominal pain, Negative for nausea, vomiting, and diarrhea. 09:01 All other systems are negative. Exam: 09:01 Constitutional: This is a well developed, well nourished patient who is awake, alert, kb and in no acute distress. Head/Face: Normocephalic, atraumatic. ENT: Moist Mucous membranes Respiratory: Respirations even and unlabored. No increased work of breathing. Talking in full sentences Abdomen/GI: Soft, non-tender. No distention Skin: Warm, dry with normal turgor. Normal color. MS/ Extremity: Pulses equal, no cyanosis. Neurovascular intact. Full, normal range of motion. Neuro: Awake and alert, GCS 15, oriented to person, place, time, and situation. Moves all extremities. Normal gait. Psych: Awake, alert, with orientation to person, place and time. Behavior, mood, and affect are within normal limits. Vital Signs: 08:28 BP 108 / 89; Pulse 97; Resp 18; Temp 98.1; Pulse Ox 100% on R/A; Weight 60.78 kg; ww Height 5 ft. 6 in. (167.64 cm); Pain 5/10; 09:14 BP 111 / 72; Pulse 69; Pulse Ox 100% ; ll1 10:30 BP 117 / 66; Pulse 67; Pulse Ox 100% on R/A; ll1 11:42 BP 127 / 78; Pulse 67; Resp 16; Pulse Ox 100% on R/A; ll1 12:19 BP 111 / 57; Pulse 70; Resp 16; Pulse Ox 100% ; ll1 08:28 Body Mass Index 21.63 (60.78 kg, 167.64 cm) ww MDM: 08:38 Patient medically screened. kb 09:01 Data reviewed: vital signs, nurses notes. Data interpreted: Pulse oximetry: on room air kb is 100 %. Interpretation: normal. 09:52 Counseling: I had a detailed discussion with the patient and/or guardian regarding: the kb historical points, exam findings, and any diagnostic results supporting the discharge/admit diagnosis, lab results, radiology results, the need for outpatient follow up, a family practitioner, a general surgeon, to return to the emergency department if symptoms worsen or persist or if there are any questions or concerns that arise at home. ED course: No abd tenderness upon exam. No obvious distress noted. No fever. Vital signs wnl. Will discharge home to follow up with general surgery. . 12:29 Physician consultation: Darío Hightower MD was contacted at 12:29, regarding consult, kb patient's condition, and will see patient in office. 04/27 08:37 Order name: Basic Metabolic Panel; Complete Time: 09:43 kb 04/27 08:37 Order name: CBC with Diff; Complete Time: 09:03 kb 04/27 08:37 Order name: Hepatic Function; Complete Time: 09:43 kb 04/27 08:37 Order name: Lipase; Complete Time: 09:43 kb 04/27 11:02 Order name: Urine Dipstick-Ancillary; Complete Time: 11:04 EDMS 04/27 11:02 Order name: Urine Microscopic Only; Complete Time: 12:14 kj1 04/27 08:37 Order name: IV Saline Lock; Complete Time: 08:40 kb 04/27 08:37 Order name: Labs collected and sent; Complete Time: 08:40 kb 04/27 08:37 Order name: US Abdomen Limited; Complete Time: 09:32 kb 04/27 09:46 Order name: Urine Dipstick-Ancillary (obtain specimen); Complete Time: 11:09 iw 04/27 11:06 Order name: Urine --Ancillary (enter results); Complete Time: 12:37 em1 Administered Medications: 09:36 Drug: Ketorolac 15 mg Route: IVP; Site: right antecubital; ll1 11:41 Follow up: Response: No adverse reaction ll1 Disposition: 19:49 Co-signature as Attending Physician, Remberto Kilpatrick MD I agree with the assessment and kdr plan of care. Disposition Summary: 04/27/21 12:15 Discharge Ordered Location: Home kb Condition: Stable kb Diagnosis - UTI/ Urinary tract infection, site not specified kb - Other cholelithiasis without obstruction kb Followup: kb - With: Emergency Department - When: As needed - Reason: Worsening of condition Followup: kb - With: Private Physician - When: 2 - 3 days - Reason: Recheck today's complaints, Continuance of care, Re-evaluation by your physician Discharge Instructions: - Discharge Summary Sheet kb - Cholelithiasis, [id number] kb - Urinary Tract Infection, Adult, [id number] kb Forms: - Medication Reconciliation Form kb - Thank You Letter kb - Antibiotic Education kb - Prescription Opioid Use kb Prescriptions: - Augmentin 875-125 mg Oral Tablet - take 1 tablet by ORAL route every 12 hours for 10 days; 20 tablet; Refills: 0, kb Product Selection Permitted - Zofran 4 mg Oral Tablet - take 1 tablet by ORAL route every 6 hours As needed; 20 tablet; Refills: 0, kb Product Selection Permitted - Diclofenac Sodium 75 mg Oral tablet,delayed release (DR/EC) - take 1 tablet by ORAL route 2 times per day As needed; 30 tablet; Refills: 0, kb Product Selection Permitted Signatures: Dispatcher [employer] Lissett Patel, REEMA-C DIRECTOR SECURITY RISK MANAGEMENT-Remberto Malik MD MD kdr Williams, Irene, SAMMY RN iw Delisa Gaona RN RN ll1 Yenny Winston RN RN ww Corrections: (The following items were deleted from the chart) 10:12 09:33 Abdomen Pelvis W Con+CT.RAD.BRZ ordered. EDOH EDOH
--- NOTE | 2021-04-27 12:16 | ER ---
Nurse's Notes [facility] Name: Naya Gaona Age: 40 yrs Sex: Female : 1980 Arrival Date: 04/27/2021 Time: 08:16 Bed 8 Private MD: Diagnosis: UTI/ Urinary tract infection, site not specified;Other cholelithiasis without obstruction Presentation: 04/27 08:28 Chief complaint: Patient states: Right upper quadrant abdominal pain that radiates to ww her back. Saw her PCP earlier this week and ordered outpatient testing for next week but pain is getting worse. Coronavirus screen: Client denies travel out of the [place] in the last 14 days. At this time, the client does not indicate any symptoms associated with coronavirus-19. Ebola Screen: Patient negative for fever greater than or equal to 101.5 degrees Fahrenheit, and additional compatible Ebola Virus Disease symptoms Patient denies exposure to infectious person. Patient denies travel to an Ebola-affected area in the 21 days before illness onset. No symptoms or risks identified at this time. Initial Sepsis Screen: Does the patient meet any 2 criteria? No. Patient's initial sepsis screen is negative. Does the patient have a suspected source of infection? No. Patient's initial sepsis screen is negative. Risk Assessment: Do you want to hurt yourself or someone else? Patient reports no desire to harm self or others. Onset of symptoms was April 26, 2021. 08:28 Method Of Arrival: Ambulatory 08:28 Acuity: TREVOR 3 ww Triage Assessment: 08:34 General: Appears in no apparent distress. comfortable, well groomed, well developed, ww well nourished, Behavior is calm, cooperative, appropriate for age. Pain: Complains of pain in abdomen Pain radiates to back. EENT: No deficits noted. No signs and/or symptoms were reported regarding the EENT system. Neuro: No deficits noted. Level of Consciousness is awake, alert, obeys commands, Oriented to person, place, time, situation, Appropriate for age. Cardiovascular: No deficits noted. Capillary refill < 3 seconds fingers. Respiratory: No deficits noted. Airway is patent Respiratory effort is even, unlabored, Respiratory pattern is regular, symmetrical. GI: Abdomen is tender to palpation in epigastric area, right upper quadrant and left upper quadrant Reports upper abdominal pain, nausea. : No deficits noted. No signs and/or symptoms were reported regarding the genitourinary system. Derm: No deficits noted. No signs and/or symptoms reported regarding the dermatologic system. Skin is intact, is healthy with good turgor, Skin is dry, Skin is pink, warm \T\ dry. Musculoskeletal: No deficits noted. No signs and/or symptoms reported regarding the musculoskeletal system. 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 Flu vaccine status is unknown. - Social history:: Smoking status: Reported history of juuling and/or vaping. Patient uses alcohol, occasionally. Screenin:38 Abuse screen: Denies threats or abuse. Denies injuries from another. Nutritional ww screening: No deficits noted. Tuberculosis screening: No symptoms or risk factors identified. Fall Risk None identified. Assessment: 08:40 Reassessment: No changes from previously documented assessment. Patient and/or family ll1 updated on plan of care and expected duration. Pain level reassessed. Patient is alert, oriented x 3, equal unlabored respirations, skin warm/dry/pink. 09:30 Reassessment: No changes from previously documented assessment. Patient and/or family ll1 updated on plan of care and expected duration. Pain level reassessed. Patient is alert, oriented x 3, equal unlabored respirations, skin warm/dry/pink. 10:30 Reassessment: No changes from previously documented assessment. Patient and/or family ll1 updated on plan of care and expected duration. Pain level reassessed. Patient is alert, oriented x 3, equal unlabored respirations, skin warm/dry/pink. 11:30 Reassessment: No changes from previously documented assessment. Patient and/or family ll1 updated on plan of care and expected duration. Pain level reassessed. Patient is alert, oriented x 3, equal unlabored respirations, skin warm/dry/pink. 12:30 Reassessment: No changes from previously documented assessment. Patient and/or family ll1 updated on plan of care and expected duration. Pain level reassessed. Patient is alert, oriented x 3, equal unlabored respirations, skin warm/dry/pink. 12:40 GI: Bowel sounds present X 4 quads. ll1 Vital Signs: 08:28 BP 108 / 89; Pulse 97; Resp 18; Temp 98.1; Pulse Ox 100% on R/A; Weight 60.78 kg; ww Height 5 ft. 6 in. (167.64 cm); Pain 5/10; 09:14 BP 111 / 72; Pulse 69; Pulse Ox 100% ; ll1 10:30 BP 117 / 66; Pulse 67; Pulse Ox 100% on R/A; ll1 11:42 BP 127 / 78; Pulse 67; Resp 16; Pulse Ox 100% on R/A; ll1 12:19 BP 111 / 57; Pulse 70; Resp 16; Pulse Ox 100% ; ll1 08:28 Body Mass Index 21.63 (60.78 kg, 167.64 cm) ED Course: 08:16 Patient arrived in ED. as 08:20 Lissett Keys F[facility]-C [facility]. kb 08:20 Remberto Kilpatrick MD is Attending Physician. kb 08:30 Triage completed. ww 08:34 Arm band placed on left wrist. ww 08:38 Patient has correct armband on for positive identification. ww 08:40 Delisa Gaona, SAMMY is Primary Nurse. ll1 08:45 Initial lab(s) drawn, by ar, sent to lab. Inserted saline lock: 20 gauge in right kj1 antecubital area, using aseptic technique. Blood collected. 08:59 US Abdomen Limited In Process Unspecified. EDMS 12:39 No provider procedures requiring assistance completed. IV discontinued, intact, ll1 bleeding controlled, No redness/swelling at site. Pressure dressing applied. Administered Medications: 09:36 Drug: Ketorolac 15 mg Route: IVP; Site: right antecubital; ll1 11:41 Follow up: Response: No adverse reaction ll1 Outcome: 12:15 Discharge ordered by MD. cruz 12:40 Patient left the ED. ll1 12:40 Discharged to home ambulatory. ll1 12:40 Condition: stable 12:40 Discharge instructions given to patient, Instructed on discharge instructions, follow up and referral plans. medication usage, Demonstrated understanding of instructions, follow-up care, medications, Prescriptions given X 3. Signatures: Dispatcher [employer] Lissett Patel, REEMA-C REEMA-Raisa Masters Kandis kj1 Delisa Gaona, RN RN ll1 Yenny Winstno, SAMMY RN ww
[2021-04-27 12:36] LABS: Urine Specific Gravity/Preg >1.030 (1.005-1.030)
[2021-04-27 12:59] VITALS: TEMP 98.1; O2SAT 100
[2021-04-27 13:05] VITALS: BP 111/57
== END 2021-04-27 12:40 | disposition home or self-care (01) ==
LOC: ER 08:15
DX: N39.0 Urinary tract infection, site not specified (principal); K80.80 Other cholelithiasis without obstruction; F41.9 Anxiety disorder, unspecified; Z85.038 Personal history of other malignant neoplasm of large intestine
CPT/HCPCS: 36415; 76705; 80048; 80076; 81003; 81015; 81025; 83690; 85025; 96374; 99284

== ENCOUNTER 2021-05-19 09:43 | Day surgery (SDC) | payer BC ==
[2021-05-16 13:35] LABS: Absolute Lymphocytes (CBC) 1.5 K/uL (0.7-4.9); Hematocrit 45.4 % (36.0-45.0); Lymphocytes % 15.1 % (15.3-44.8); MPV 8.7 fL (7.6-11.3); RBC Red Blood Cell Count 4.75 M/uL (3.86-4.86)
[2021-05-16 13:45] LABS: ALT/SGPT 88 U/L (12-78); AST/SGOT 37 U/L (15-37); Albumin 4.2 g/dL (3.4-5.0); Alkaline Phosphatase 90 U/L (45-117); BUN Blood Urea Nitrogen 7 mg/dL (7-18); Bicarbonate 27 mmol/L (21-32); Bilirubin Total 0.8 mg/dL (0.2-1.0); Glucose Level 84 mg/dL (74-106); Potassium 3.9 mmol/L (3.5-5.1); Protein, Total 7.9 g/dL (6.4-8.2); Sodium Level 138 mmol/L (136-145)
[2021-05-19] MEDS ORDERED: Ringers Lactate 1,000 ML IV ONE ×2 (10:06→10:07)
[2021-05-19] MEDS ORDERED: CEFOXITIN 2 GM in NA CHLORIDE 0.9% 100 ML IV ONE (10:15)
[2021-05-19] MEDS ORDERED: CEFOXITIN/SWI 2gm 2 GM/20 ML SYR IV ONE (10:15)
[2021-05-19] MEDS ORDERED: BUPIVACAINE 0.5% PF 10 ML VIAL ONE (11:27)
[2021-05-19] MEDS ORDERED: MIDAZOLAM HCL 2 MG/2 ML INJ ONE (12:19)
[2021-05-19] MEDS ORDERED: propofoL 200 MG/20 ML VIAL IV ONE (12:19)
[2021-05-19] MEDS ORDERED: LIDOCAINE 1% MPF 5 ML VIAL ONE (12:19)
[2021-05-19] MEDS ORDERED: dexAMETHasone 10 MG/ML VIAL ONE (12:19)
[2021-05-19] MEDS ORDERED: FENTANYL CITR 100 MCG/2 ML ONE (12:19)
[2021-05-19] MEDS ORDERED: ONDANSETRON 4 MG/2 ML VIAL ONE (12:21)
[2021-05-19] MEDS ORDERED: ROCURONIUM 50 MG/5 ML VIAL IV ONE (12:21)
[2021-05-19] MEDS ORDERED: Phenylephrine HCl 10 MG/ML 1 ML VIAL ONE (12:57)
[2021-05-19] MEDS ORDERED: KETOROLAC 30 MG/ML INJ ONE (13:15)
[2021-05-19] MEDS ORDERED: GLYCOPYRROLATE 0.2 MG/ML SYR ONE (13:15)
[2021-05-19] MEDS ORDERED: NEOSTIGMINE 1 MG/ML -5 ML ONE (13:17)
--- NOTE | 2021-05-19 13:25 | P.OP ---
Preoperative diagnosis: Chronic Cholecystitis, Biliary Dyskinesia Postoperative diagnosis: Chronic Cholecystitis, Biliary Dyskinesia Primary procedure: Laparoscopic Cholecystectomy with indocyanin green cholangiography Anesthesia: GETA + Local Estimated blood loss: <5cc Specimen: gallbladder Findings: distended gallbladder Complications: None Transferred to: Recovery Room Condition: Good
[2021-05-19] MEDS ORDERED: PROMETHAZINE INJ 25 MG/ML AMP ONE (13:40)
[2021-05-19] MEDS: MEPERIDINE HCL 25 MG/ML SYR ONE ×2 (13:40→13:45)
[2021-05-19] MEDS ORDERED: MORPHINE 4 MG/ML SYR ONE (13:50)
[2021-05-19 14:00] VITALS: O2SAT 100
--- NOTE | 2021-05-19 14:29 | OP ---
Date of Procedure: 05/19/2021 Surgeon: Darío Hightower MD, Preoperative Diagnoses: Chronic cholecystitis/biliary dyskinesia. Postoperative Diagnoses: Chronic cholecystitis/biliary dyskinesia. Procedure Performed: Laparoscopic cholecystectomy with indocyanine green cholangiography. Anesthesia: General endotracheal plus local with 0.25% Marcaine without epinephrine. Estimated Blood Loss: Less than 5 mL. Specimen: Gallbladder. Findings: Distended gallbladder. Ventral midline incisional hernia. Complications: None. The patient transferred to recovery room in good condition. Procedure In Detail: After informed consent was obtained, the patient brought to the operating room, prepped and draped in the usual sterile fashion. After adequate anesthesia was achieved, supraumbil ical area was anesthetized with 0.25% Marcaine, sharply incised. A 5 mm 0-degree optical trocar was introduced in the abdomen without complication. Insufflation obtained to 15 mmHg at this time. No i njury to vital structures upon entry to the abdomen. 2 additional trocars placed. Both were 5 mm tr ocars. Placed under direct visualization without evidence of complication. One in the epigastrium, one in the right upper quadrant. The umbilical trocar was then up-sized to a 12 mm under direct visu alization with no evidence of complication. At this point the patient was positioned head up right-s luana up position. Ratcheted grasper was used to grasp the patient's gallbladder, placed towards the p atient's right shoulder. The patient had a previous colectomy. There was significant scar tissue fr om the omentum to the anterior surface of the gallbladder. These were taken down using electrocauter y and combination of blunt dissection. Ultimately, indocyanine green was used to confirm the positio n of the cystic duct and these structures were skeletonized, visualized in the critical view of safet y at this point with 2 structures seen entering the gallbladder. After this was performed, indocyani ne green cholangiography confirmed position of the common duct, cystic duct junction, and at this poi nt, double titanium clips were placed doubly on the proximal side and singly on the distal side of th e cystic duct and cystic artery. These structures were then ligated individually using Endo Gary. The gallbladder was removed through the hepatic fossa without evidence of complication with minimal electrocautery. No spillage of bile was encountered throughout the entire procedure. The gallbladde r was placed in EndoCatch bag, removed through the umbilical trocar, sent off for pathologic examinat ion. The abdomen was then re-insufflated at this point. The abdominal cavity was irrigated copiousl y and the umbilical trocar site was inspected. The patient did have some evidence of midline hernia from previous midline surgery which extended probably 5 to 6 cm along weak aspect of the midline. Ho wever, it did incorporate the area near the trocar placement at the supraumbilical position. The tro car was removed and closed using Rosalino-Randee suture passer with multiple 0 Vicryl in interrupted fashion with good apposition of the tissues. The abdomen was then desufflated under direct visualiza tion with no evidence of complication. All skin incisions copiously irrigated and closed with 4-0 Mo nocryl in interrupted fashion. Dermabond placed over top. All counts were correct at the end of the case. PRESTON/TREY Voice ID: [id number] Report ID: [id number]
[2021-05-19] MEDS ORDERED: HYDROCODONE/APAP 7.5/325 MG TAB ONE (14:33)
[2021-05-19 15:50] VITALS: BP 100/62; TEMP 97.2
== END 2021-05-19 15:47 | disposition home or self-care (01) ==
LOC: OR 09:43
PROVIDERS: ATTEND Surgery
PROC: BF03YZZ Plain Radiography of Gallbladder and Bile Ducts using Other Contrast (ICD-10-PCS; 2021-05-19)
PROC: 0FT44ZZ Resection of Gallbladder, Percutaneous Endoscopic Approach (ICD-10-PCS; principal; 2021-05-19 12:15)
DX: K80.10 Calculus of gallbladder with chronic cholecystitis without obstruction (principal); Z20.822 Contact with and (suspected) exposure to COVID-19
CPT/HCPCS: 85025; 36415; 88304; 80053; 47563; U0002; J2704; J2550; J2370; J2250; J3010; J1100; J2175; J2710; J7120 ×2; J0694; J2405

== ENCOUNTER 2021-07-17 07:47 | Day surgery (SDC) | payer BC ==
[2021-07-14 14:00] LABS: BUN Blood Urea Nitrogen 14 mg/dL (7-18); Bicarbonate 27 mmol/L (21-32); Glucose Level 83 mg/dL (74-106); Potassium 4.2 mmol/L (3.5-5.1); Sodium Level 139 mmol/L (136-145)
[2021-07-17] MEDS ORDERED: CEFAZOLIN SODIUM 1 GM/VIAL ONE (08:17)
[2021-07-17] MEDS ORDERED: Ringers Lactate 1,000 ML IV ONE ×2 (08:17→09:03)
[2021-07-17] MEDS ORDERED: BUPIVACAINE 0.25% PF 10 ML VIAL ONE ×3 (09:03→11:24)
[2021-07-17] MEDS ORDERED: FENTANYL CITR 100 MCG/2 ML ONE (09:07)
[2021-07-17] MEDS ORDERED: ROCURONIUM 50 MG/5 ML VIAL IV ONE (09:08)
[2021-07-17] MEDS ORDERED: dexAMETHasone 10 MG/ML VIAL ONE ×2 (09:08→11:08)
[2021-07-17] MEDS ORDERED: MIDAZOLAM HCL 2 MG/2 ML INJ ONE (09:08)
[2021-07-17] MEDS ORDERED: KETOROLAC 30 MG/ML INJ ONE (09:08)
[2021-07-17] MEDS ORDERED: LIDOCAINE 2% MPF 5 ML VIAL ONE (09:08)
[2021-07-17] MEDS ORDERED: propofoL 200 MG/20 ML VIAL IV ONE (09:08)
[2021-07-17] MEDS ORDERED: ONDANSETRON 4 MG/2 ML VIAL ONE (09:09)
[2021-07-17] MEDS ORDERED: Phenylephrine HCl 10 MG/ML 1 ML VIAL ONE (09:29)
[2021-07-17] MEDS ORDERED: ALBUMIN HUM 5% 250 ML IV ONE (09:57)
--- NOTE | 2021-07-17 10:30 | P.OP ---
Preoperative diagnosis: Ventral Incisional Hernia Postoperative diagnosis: Ventral Incisional Hernia Primary procedure: Laparoscopic Ventral Incisional Hernia Repair with mesh Anesthesia: GETA + Local Estimated blood loss: <5cc Specimen: none Findings: ventral incisional periumbilical hernia Complications: None Implants: 4"x6" Bard Ventralite ST mesh with echo position, sorbafix absorbable tacks Transferred to: Recovery Room Condition: Good
[2021-07-17] MEDS ORDERED: GLYCOPYRROLATE 0.2 MG/ML SYR ONE (10:38)
[2021-07-17] MEDS ORDERED: NEOSTIGMINE 1 MG/ML -5 ML ONE (10:38)
[2021-07-17] MEDS: FENTANYL CITR 100 MCG/2 ML ONE ×3 (10:50→11:05)
[2021-07-17] MEDS ORDERED: LIDOCAINE 1% MPF 5 ML VIAL ONE (11:07)
[2021-07-17] MEDS: HYDROMORPHONE HCL 1 MG/ML INJ ONE ×2 (11:55→12:01)
[2021-07-17] MEDS ORDERED: PROMETHAZINE INJ 25 MG/ML AMP ONE (11:55)
[2021-07-17 13:40] VITALS: BP 116/64; TEMP 97.2; O2SAT 98
--- NOTE | 2021-07-17 13:54 | OP ---
Date of Procedure: 07/17/2021 Surgeon: Darío Hightower MD, Preoperative Diagnosis: Ventral incisional hernia. Postoperative Diagnosis: Ventral incisional hernia. Procedure Performed: Laparoscopic ventral hernia repair with mesh. Anesthesia: General endotracheal plus local with 0.25% Marcaine. Estimated Blood Loss: Less than 5 mL. Specimen: None. Findings: Ventral incisional periumbilical hernia. Complications: None. Implants: A 4 inch x [address] mesh with Echo Positioning System, SorbaFix absorbab le fixation tacks. Disposition: The patient was transferred to the recovery room in good condition. Procedure In Detail: After informed consent was obtained, the patient was brought to the operating r oom, prepped and draped in the usual sterile fashion after adequate anesthesia was achieved. An area of the right upper quadrant was anesthetized with 0.25% Marcaine, sharply incised. A 5 mm 0-degree optical trocar was introduced in the abdomen without evidence of complication. Insufflation was obta ined to 15 mmHg at this time. There was no injury to vital structures upon entry into the abdomen. Additional trocar was placed in the left upper quadrant. This was similarly anesthetized and sharply incised. A 5 mm trocar was placed under direct visualization without evidence of complication. Add itional trocar was placed in the left lower quadrant. This was similarly anesthetized and sharply in cised. A 5 mm trocar was placed under direct visualization without evidence of complication. The le ft lower quadrant was then up-sized to a 12 mm under direct visualization without evidence of complic ation. The hernia was then visualized. The falciform ligament was taken down partially away from th e area using the LigaSure device to find good intact fascia. The hernia defect was approximately 2 c m at the periumbilical position with some weakness in the midline both superior and inferior to this consistent with a ventral incisional hernia. I used the Endo Stitch with V-Loc, so the defect closed in a running fashion. I then brought the mesh 4 inch x [address] mesh with Echo Po sitioning System, centrally positioned it, and deployed the balloon deployment system in the midline. I then secured the mesh with a single ring circumferentially around using the SorbaFix fixation tac ker. The balloon deployment system was then removed and found to be intact on the back table. I the n placed a double crown type closure with the SorbaFix fixation tacks to the anterior bowel wall with good apposition of mesh to the anterior abdominal wall. The abdomen was inspected. No hemostatic m aneuvers were required. The mesh was in good position at this point. I then closed the 12 mm trocar site with a Rosalino-Randee suture passer with 0 Vicryl in a running fashion with good approximation of tissues. The abdomen was then completely desufflated under direct visualization without evidence of complication. All skin incisions were copiously irrigated and closed with 4-0 Monocryl in a runn ing fashion. Dermabond placed over top. The patient tolerated the procedure well without evidence o f complication and transferred to PACU in good condition. All counts were correct at the end of the case. PRESTON/TREY Voice ID: [id number] Report ID: [id number]
== END 2021-07-17 13:50 | disposition home or self-care (01) ==
LOC: OR 07:47
PROVIDERS: ATTEND Surgery
PROC: 0WUF4JZ Supplement Abdominal Wall with Synthetic Substitute, Percutaneous Endoscopic Approach (ICD-10-PCS; principal; 2021-07-17 09:15)
DX: K43.2 Incisional hernia without obstruction or gangrene (principal); I10 Essential (primary) hypertension; Z85.038 Personal history of other malignant neoplasm of large intestine
CPT/HCPCS: 80048; 36415; 49654; J2704; J2550; J2370; J2250; J3010 ×2; J1100 ×2; P9045; J1170; J2710; J7120 ×2; J2405; J0690

== ENCOUNTER 2022-01-23 13:43 | Emergency (ER) | payer BC ==
--- OUTSIDE RECORDS SUMMARY | 2022-01-23 13:48 | XMS REPORT | Clinical Summary ---
:1980 Author Organization [facility] Address [address] [place] [address] Care Team Providers Name Role Phone Prakash Maki MD Primary Care Provider [phone] Allergies Active Allergy Reactions Severity Noted Date Comments Oxycodone Other (See Comments), GI 09/03/2017 Mitch sea, vomiting, dizzy Intolerance Trazodone GI Intolerance 09/03/2017 Medications Medication Sig Dispensed Refills Start Date End Date Status cholecalciferol, Take 400 0 Act diana vitamin D3, Units by (VITAMIN D3) 4,000 mouth. units tab tablet ibuprofen Take 200 mg 0 Active (ADVIL,MOTRIN) 200 by mouth mg every 8 tabletIndications: (eight) hours pain as needed. vit D3/folic Take 1 tablet 0 Act diana acid/B2/B6/B12 by mouth (FOLGARD ORAL) daily. aspirin 81 mg EC Take 81 mg by 0 Active tablet mouth daily. omeprazole Take 20 mg by 0 Activ e (PriLOSEC) 20 mg mouth daily. capsule bisacodyl (EX-LAX Take 1 tablet 0 Active ULTRA ORAL) by mouth as needed. FABB 2.2-25-1 mg TAKE 1 TABLET 11 01/30/2019 Active tab BY MOUTH DAILY. TRINTELLIX 20 mg Take 1 tablet 0 02/15/2019 Active tab by mouth daily. L. Take 1 tablet 0 Active acidophilus/Bifid. by mouth animalis (DAILY daily. PROBIOTIC ORAL) diazePAM (VALIUM) Take 2 mg by 0 Active 2 mg tablet mouth as needed. ALPRAZolam (XANAX) Take 0.5 mg 0 Active 0.5 mg tablet by mouth at bedtime. sodium,potassium,m 2 bottles w/ 1 kit 0 01/19/2022 Active ag sulfates no refills 17.5-3.13-1.6 gram solrIndications: Colonoscopy planned polyethylene Use as 4000 mL 0 01/08/2022 Discon tinued glycol-electrolyte directed by 2 (Stop Taking at s (NULYTELY) 420 g ordering D ischarge) solutionIndication provider. s: Colonoscopy planned Active Problems Problem Noted Date Personal history of colonic polyp 11/06/2019 Overview: Added automatically from request for angélica martina [id number] Colon cancer 02/04/2018 Overview: Added automatically from request for angélica mack [id number] Mandatory [facility] ICD-10 2020 UPDATE Anxiety 10/18/2017 Mass of colon 10/17/2017 Cancer of ascending colon 10/06/2017 Cancer Staging: Pathologic stage from : Stage I (pT1, pN0, cM0) - Unsigned Overview: Added automatically from request for angélica mack [id number] Mandatory [facility] ICD-10 2020 UPDATE Encounters Date Type Specialty Care Team Description 01/22/2022 Hospital Encounter Lab Julianna, Personal history MD Coby of other malign ant neoplasm of col on 01/22/2022 Anesthesia Event Endoscopy Noe Villagomez MD Chiang, Joseph S., MD 01/22/2022 Surgery Endoscopy Julianna, DIAGNOSTIC MD Coby FLEXIBLE COLONOSCOPY PROXIMAL TO SPLENIC FLEXURE 01/22/2022 Hospital Encounter Endoscopy Julianna, Personal history of other malignant neoplasm of colon (Primary Dx); MD Coby Colon cancer, n ot otherwise specified; Personal histor y of colonic polyp 01/22/2022 Travel 01/19/2022 POEM Appointments Anesthesiology Shanthi, Pre op labs MD Prakash (Primary Dx) 01/19/2022 Hospital Encounter Lab Gucci Teresa Colonos copy planned; PA Pre procedural laboratory examination 01/19/2022 Anesthesia Event Anesthesiology Jacklyn Scott RN 01/19/2022 Clinical Support Jared Maki, Suspect ed SEBASTIAN Randall MD (Primary Dx) Alonso Fierro RN 01/19/2022 Refill Gastroenterology, Murguia, Samantha, Colonos copy Hepatology & MA planned (Primar y Nutrition Dx) 01/19/2022 Telephone Endoscopy Agus Gross MA 01/19/2022 Travel 01/19/2022 Orders Only Gastroenterology, [place], Pre proced ural Hepatology & MONIQUE Perera laboratory Nutrition examination (Primary Dx) 01/18/2022 Orders Only Endoscopy Tadelle, Gucci, Colonoscopy PA planned (Primar y Dx) 01/08/2022 Refill Gastroenterology, Murguia, Samantha, Colonos copy Hepatology & MA planned (Primar y Nutrition Dx) 11/10/2021 Orders Only Colorectal Surgery Shiela Fuchs RN after 01/23/2021 Immunizations Name Administration Dates Next Due Influenza, Quadrivalent 03/26/2016 Influenza, Unspecified 02/14/2018 Surgical History Surgery Date Site/Laterality Comments [facility] EXPLORATORY OF ABDOMEN 10/18/2017 Abdomen/Midline Proced ure: EXPLORATORY CELIOTOMY (LAPAROTOMY); Griffin rgeon: Prakash Maki MD; Location: MAIN OR; Service : SURG ONC - COLORECTAL Medical devices from this surgery are in t he Medical Devices section. [facility] REMVL COLON & TERM ILEUM 10/18/2017 Abdomen/Midline Proc edure: PARTIAL COLECTOMY, W/ILEOCOLOSTOMY right hemicolect brii; Surgeon: Prakash Reddy MD; Location: MAIN O R; Service: SURG ONC - COLORECTAL Medical devices from this surgery are in t he Medical Devices section. [facility] COLONOSCOPY FLX DX 08/21/2018 N/A Procedure: DIAGNOSTIC FLEXIBLE W/COLLJ SPEC WHEN PFRMD COLONOSC OPY PROXIMAL TO SPLENIC FLEXURE; Surgeon : Javid Cadet MD; Locat ion: MAIN ENDOSCOPY; Servi ce: GASTROENTEROLOGY [facility] COLONOSCOPY FLX DX 11/06/2019 N/A Procedure: DIAGNOSTIC FLEXIBLE W/COLLJ SPEC WHEN PFRMD COLONOSC OPY PROXIMAL TO SPLENIC FLEXURE; Surgeon : Javid Cadet MD; Locat ion: MAIN ENDOSCOPY; Servi ce: GASTROENTEROLOGY ; f/up 2 years [facility] COLONOSCOPY W/BIOPSY 08/25/2020 N/A Procedur e: FLEXIBLE COLONOSCOPY SINGLE/MULTIPLE PROXIMAL TO SPLE JENNA FLEXURE WITH BIOPSY; Surgeon: Javid Cadet MD; Locat ion: MAIN ENDOSCOPY; Servi ce: GASTROENTEROLOGY Medical History Medical History Date Comments [...] Assigned at Date Recorded Not on file COVID-19 Exposure Response Date Recorded In the last 10 days, have you been in contact with No / Unsu re 01/22/2022 10:38 AM CDT someone who was confirmed or suspected to have Coronavirus/COVID-19? Obstetrics History Last Filed Vital Signs Vital Sign Reading Time Taken Comments Blood Pressure 119/82 01/22/2022 2:00 PM CDT Pulse 65 01/22/2022 2:00 PM CDT Temperature 36 C (96.8 F) 01/22/2022 1:48 PM CDT Respiratory Rate 16 01/22/2022 1:50 PM CDT Oxygen Saturation 100% 01/22/2022 2:00 PM CDT Inhaled Oxygen Concentration - - Weight 64.8 kg (142 lb 13.7 oz) 01/22/2022 12:32 PM CDT Height - - Body Mass Index 23.06 09/27/2017 8:43 AM CDT Plan of Treatment Date Type Specialty Care Team Description 08/26/2023 Hospital Encounter Endoscopy Jeb Cadet MD [id number] [id number] (Wo rk) Name Priority Associated Diagnoses Date/Time DIAGNOSTIC FLEXIBLE COLONOSCOPY Personal history of colonic PROXIMAL TO SPLENIC FLEXURE polyp Health Maintenance Due Date Last Done Comments COVID-19 Vaccination (#1) 04/30/1979 Medical Devices Implanted Type Area Community Service Manager Device Shelf Model / Identifier Expiration Date Ser ial / Lot [employer]film - [id number] Implant GENZYME 09/10/19 20 [id number] / Implanted: Qty: 1 on 10/18/2017 by Yomaira Maki MD at [facility] / [id number] Procedures Procedure Name Priority Date/Time Associated Comments Diagnosis MANUAL DIFFERENTIAL Routine 01/22/2022 3:08 Personal history o f Results for this PM CDT other malignant procedure ar e in neoplasm of colon the result s section. Results CBC Routine 01/22/2022 3:08 Personal history of Resul ts for this PM CDT other malignant procedure ar e in neoplasm of colon the result s section. FRACTIONATED BILIRUBIN Routine 01/22/2022 3:08 Personal histor y of Results for this PM CDT other malignant procedure ar e in neoplasm of colon the result s section. TOTAL PROTEIN Routine 01/22/2022 3:08 Personal history of Resu lts for this PM CDT other malignant procedure ar e in neoplasm of colon the result s section. ASPARTATE Routine 01/22/2022 3:08 Personal history of Resul ts for this AMINOTRANSFERASE PM CDT other malignant procedur e are in neoplasm of colon the result s section. ALANINE AMINOTRANSFERASE Routine 01/22/2022 3:08 Personal hist ory of Results for this PM CDT other malignant procedure ar e in neoplasm of colon the result s section. ALKALINE PHOSPHATASE Routine 01/22/2022 3:08 Personal history of Results for this PM CDT other malignant procedure ar e in neoplasm of colon the result s section. ALBUMIN LEVEL Routine 01/22/2022 3:08 Personal history of Resu lts for this PM CDT other malignant procedure ar e in neoplasm of colon the result s section. CALCIUM LEVEL TOTAL Routine 01/22/2022 3:08 Personal history o f Results for this PM CDT other malignant procedure ar e in neoplasm of colon the result s section. .GLOMERULAR FILTRATION Routine 01/22/2022 3:08 Personal histor y of Results for this RATE PM CDT other malignant procedure ar e in neoplasm of colon the result s section. SERUM CREATININE Routine 01/22/2022 3:08 Personal history of R esults for this PM CDT other malignant procedure ar e in neoplasm of colon the result s section. ELECTROLYTE PANEL Routine 01/22/2022 3:08 Personal history of Results for this PM CDT other malignant procedure ar e in neoplasm of colon the result s section. BLOOD UREA NITROGEN Routine 01/22/2022 3:08 Personal history o f Results for this PM CDT other malignant procedure ar e in neoplasm of colon the result s section. GLUCOSE LEVEL Routine 01/22/2022 3:08 Personal history of Resu lts for this PM CDT other malignant procedure ar e in neoplasm of colon the result s section. LIPASE LEVEL Routine 01/22/2022 3:08 Personal history of Resul ts for this PM CDT other malignant procedure ar e in neoplasm of colon the result s section. AMYLASE LEVEL Routine 01/22/2022 3:08 Personal history of Resu lts for this PM CDT other malignant procedure ar e in neoplasm of colon the result s section. CARCINOEMBRYONIC ANTIGEN Routine 01/22/2022 3:08 Personal hist ory of Results for this PM CDT other malignant procedure ar e in neoplasm of colon the result s section. COMPLETE BLOOD COUNT W/ Routine 01/22/2022 3:08 Personal histo ry of DIFFERENTIAL PM CDT other malignant neoplasm of colon PHOSPHORUS LEVEL Routine 01/22/2022 3:08 Personal history of R esults for this PM CDT other malignant procedure ar e in neoplasm of colon the result s section. MAGNESIUM LEVEL Routine 01/22/2022 3:08 Personal history of Re sults for this PM CDT other malignant procedure ar e in neoplasm of colon the result s section. COMPREHENSIVE METABOLIC Routine 01/22/2022 3:08 Personal histo ry of PANEL PM CDT other malignant neoplasm of colon PATHOLOGY BIOPSY Routine 01/22/2022 1:35 Colon cancer, not Res ults for this INTERPRETATION PM CDT otherwise specif ied procedure are in Personal history of the resu lts colonic polyp section. .GLOMERULAR FILTRATION Routine 01/19/2022 9:56 Colonoscopy goran nned Results for this RATE AM CDT procedure are i n the results section. SERUM CREATININE Routine 01/19/2022 9:56 Colonoscopy planned R esults for this AM CDT procedure are i n the results section. SERUM CREATININE Routine 01/19/2022 9:56 Colonoscopy planned AM CDT BLOOD UREA NITROGEN Routine 01/19/2022 9:56 Colonoscopy planne d Results for this AM CDT procedure are i n the results section. COVID-19 (SARS-COV-2) Routine 01/19/2022 9:32 Suspected COVID- 19 Results for this PCR-ASYMPTOMATIC [facility] AM CDT procedur e are in the results section. after 01/23/2021 Results .Serum Creatinine (01/22/2022 3:08 PM CDT)Only the most recent of2 resultswithin the time period is included. athologist Signature Creatinine 0.70 0.51 - 0.95 [facility] mg/dL [facility] Specimen Anatomical Collection Method Collection Time Receive d Time (Source) Location / / Volume Laterality Blood 01/22/2022 3:08 PM 3:33 CDT PM CDT Coby Levine MD LAB BLOOD ORDERABLES Performing Organization Address City/State/ZIP Code Phon e Number [facility] CANCER Unless otherwise noted, [place] [address] [place] all lab tests performed by: Division of Pathology and Laboratory Medicine [address] [place] (ABNORMAL) .CBC (01/22/2022 3:08 PM CDT) athologist Signature WBC 8.1 4.0 - 11.0 [facility] K/[facility] RBC 4.36 4.00 - [place] MD 5.50 M/[facility] Hgb 14.2 12.0 - [place] MD 16.0 gm/dL [facility] Hct 42.2 37.0 - [place] MD 47.0 % [facility] MCV 97 82 - 98 [facility] MCH 32.6 (H) 27.0 - [place] MD 31.0 pg [facility] MCHC 33.6 31.0 - [place] MD 36.0 gm/dL [facility] RDW-SD 44.6 35.1 - [place] MD 46.3 [facility] RDW-CV 12.5 12.0 - [place] MD 15.5 % [facility] Platelet count 374 140 - 440 [facility] K/[facility] MPV 9.7 4.0 - 10.4 [place] MD Walsh [facility] INRBC 0.0 <=0.0 % [facility] Comment: The INRBC (instrument NRBC) value reflec ts the enumeration of nucleated red blood cells contained i n a 200uL sample of whole blood analyzed by the instrumen t. This value may differ from the NRBC value reported in a manual differential, which is based on a 100 cell differentia l. Specimen Anatomical Collection Method Collection Time Receive d Time (Source) Location / / Volume Laterality Blood 01/22/2022 3:08 PM 2 3:26 CDT PM CDT Coby Levine MD LAB BLOOD ORDERABLES Performing Organization Address City/State/ZIP Code Phon e Number [facility] CANCER Unless otherwise noted, [place] [address] [place] all lab tests performed by: Division of Pathology and Laboratory Medicine [address] [facility] Glomerular Filtration Rate (01/22/2022 3:08 PM CDT)Only the most recent of2 resultswithin the time period is included. athologist Signature eGFR-AA 123 >=60 [facility] mL/min/1.73 [facility] sq. m Comment: Normal eGFR: >= 60 mL/min/1.73 m2 Note: The eGFR is calculated using the C KD-EPI equation. The eGFR declines with age. eGFR <60 mL/min/1.73 m2 is considered as "decreased". This equation should only be used for patients 18 and older. According to the National Kidney Foundat ion's Kidney Disease Outcome Quality Initiative (KDOQI) classification and 2012 Kidney Disease Improving Global Outcomes (KDIGO) Clinical Practice Guideline, the stage of CKD should be categorized based on estimated GFR. Stage Description GFR mL/min/1. 73 m2 1 Normal or high GFR >=90 2 Mildly decreased GFR 60-89 3a Mildly to moderately decreased GFR 45-59 3b Moderately to severely decreased GFR 30-44 4 Severely decreased GFR 15-29 5 Kidney failure <15 eGFR-TIMOTHY 106 >=60 mL/min/1.73 sq. m [place] MD [facility] Comment: Normal eGFR: >= 60 mL/min/1.73 m2 Note: The eGFR is calculated using the C KD-EPI equation. The eGFR declines with age. eGFR <60 mL/min/1.73 m2 is considered as "decreased". This equation should only be used for patients 18 and older. According to the National Kidney Foundat ion's Kidney Disease Outcome Quality Initiative (KDOQI) classification and 2012 Kidney Disease Improving Global Outcomes (KDIGO) Clinical Practice Guideline, the stage of CKD should be categorized based on estimated GFR. Stage Description GFR mL/min/1. 73 m2 1 Normal or high GFR >=90 2 Mildly decreased GFR 60-89 3a Mildly to moderately decreased GFR 45-59 3b Moderately to severely decreased GFR 30-44 4 Severely decreased GFR 15-29 5 Kidney failure <15 Specimen Anatomical Collection Method Collection Time Receive d Time (Source) Location / / Volume Laterality Blood 01/22/2022 3:08 PM 2 3:33 CDT PM CDT Coby Levine MD LAB BLOOD ORDERABLES Performing Organization Address City/[facility] Phon e Number [facility] Unless otherwise noted, [address] all lab tests performed by: Division of Pathology and Laboratory Medicine [address] [place] [address] Fractionated Bilirubin (01/22/2022 3:08 PM CDT) athologist Signature Bili Total 1.1 <=1.2 mg/dL [facility] Comment: Indocyanine Green (ICG) may cause falsel y elevated bilirubin results. Total and direct bilirubin must not be measured from samples containing indocyanine green. False elevation of total bilirubin can b e seen in patients with IgG concentrations above 28 g/L. Bili Direct 0.2 <=0.3 mg/dL [facility] Comment: Indocyanine Green (ICG) may cau se falsely elevated bilirubin results. Total and direct bilirubin must not be measure d from samples containing indocyanine green. Bili Indirect 0.9 0.0 - 0.9 mg/dL [place] MD [facility] [[email or web address]] Specimen Anatomical Collection Method Collection Time Receive d Time (Source) Location / / Volume Laterality Blood 01/22/2022 3:08 PM 2 3:33 CDT PM CDT Coby Levine MD LAB BLOOD ORDERABLES Performing Organization Address City/[facility] Phon e Number [facility] Unless otherwise noted, [address] all lab tests performed by: Division of Pathology and Laboratory Medicine [address] [place] [address] Differential (01/22/2022 3:08 PM CDT) athologist Signature Neutrophil % 53.6 42.0 - 66.0 [facility] % [facility] Lymphocyte % 35.8 24.0 - 44.0 [facility] % [facility] Monocyte % 6.3 2.0 - 7.0 % [facility] Eosinophil % 3.3 1.0 - 4.0 % [facility] Basophil % 0.6 0.0 - 1.0 % [facility] IGRE % 0.4 0.0 - 0.4 % [facility] Comment: IGRE % count includes Metamyelo cytes, Myelocytes, and Promyelocytes. Neutrophil Abs 4.34 1.70 - 7.30 K/uL [facility] Lymphocyte Abs 2.90 1.00 - 4.80 K/uL [facility] Monocyte Abs 0.51 0.08 - 0.70 K/uL [place] [facility] Eosinophil Abs 0.27 0.04 - 0.40 K/uL [facility] Basophil Abs 0.05 0.00 - 0.10 K/uL [place] [facility] IG Abs 0.03 0.00 - 0.04 K/uL MO MD AMEENA Lomax [facility] Specimen Anatomical Collection Method Collection Time Receive d Time (Source) Location / / Volume Laterality Blood 01/22/2022 3:08 PM 3:26 CDT PM CDT Coby Levine MD LAB BLOOD ORDERABLES Performing Organization Address City/State/ZIP Code Phon e Number [facility] CANCER Unless otherwise noted, [address] all lab tests performed by: Division of Pathology and Laboratory Medicine [facility] [place] BUN (01/22/2022 3:08 PM CDT)Only the most recent of2 resultswithin the time period is included. athologist Signature BUN 6 6 - 23 [facility] mg/dL [facility] Specimen Anatomical Collection Method Collection Time Receive d Time (Source) Location / / Volume Laterality Blood 01/22/2022 3:08 PM 2 3:33 CDT PM CDT Coby Levine MD LAB BLOOD ORDERABLES Performing Organization Address City/[facility]/ZIP Code Phon e Number [facility] CANCER Unless otherwise noted, [address] all lab tests performed by: Division of Pathology and Laboratory Medicine [address] [place] [address] [place] ALT (01/22/2022 3:08 PM CDT) P athologist Signature ALT 14 <=33 U/L [facility] Specimen Anatomical Collection Method Collection Time Receive d Time (Source) Location / / Volume Laterality Blood 01/22/2022 3:08 PM 2 3:33 CDT PM CDT Coby Levine MD LAB BLOOD ORDERABLES Performing Organization Address City/[facility]/ZIP Code Phon e Number [facility] Unless otherwise noted, [address] all lab tests performed by: Division of Pathology and Laboratory Medicine [address] [place], [place] [address]d Aspartate Aminotransferase (01/22/2022 3:08 PM CDT) P athologist Signature AST 16 <=32 U/L [facility] Specimen Anatomical Collection Method Collection Time Receive d Time (Source) Location / / Volume Laterality Blood 01/22/2022 3:08 PM 2 3:33 CDT PM CDT Coby Levine MD LAB BLOOD ORDERABLES Performing Organization Address City/[facility]/ZIP Code Phon e Number [facility] CANCER Unless otherwise noted, [address] all lab tests performed by: Division of Pathology and Laboratory Medicine [address] [place] [address] Total Protein (01/22/2022 3:08 PM CDT) P athologist Signature Total Protein 7.3 6.4 - 8.3 [facility] g/dL [facility] Specimen Anatomical Collection Method Collection Time Receive d Time (Source) Location / / Volume Laterality Blood 01/22/2022 3:08 PM 2 3:33 CDT PM CDT Coby Levine MD LAB BLOOD ORDERABLES Performing Organization Address City/[facility]/ZIP Code Phon e Number [facility] CANCER Unless otherwise noted, [address] all lab tests performed by: Division of Pathology and Laboratory Medicine [address] [place] Phosphorus Level (01/22/2022 3:08 PM CDT) P athologist Signature Phosphorus 3.0 2.5 - 4.5 [facility] mg/dL [facility] Specimen Anatomical Collection Method Collection Time Receive d Time (Source) Location / / Volume Laterality Blood 01/22/2022 3:08 PM 2 3:33 CDT PM CDT Coby Levine MD LAB BLOOD ORDERABLES Performing Organization Address City/[facility]/ZIP [facility] Phon e Number [facility] CANCER Unless otherwise noted, [address] all lab tests performed by: Division of Pathology and Laboratory Medicine [address] [place] Alkaline Phosphatase (01/22/2022 3:08 PM CDT) athologist Signature Alk Phos 59 35 - 104 [facility] U/L [facility] Specimen Anatomical Collection Method Collection Time Receive d Time (Source) Location / / Volume Laterality Blood 01/22/2022 3:08 PM 2 3:33 CDT PM CDT Coby Levine MD LAB BLOOD ORDERABLES Performing Organization Address City/[facility] Phon e Number [facility] CANCER Unless otherwise noted, [address] all lab tests performed by: Division of Pathology and Laboratory Medicine [address] [place] Magnesium Level (01/22/2022 3:08 PM CDT) athologist Signature Magnesium 2.2 1.6 - 2.6 [facility] mg/dL [facility] Specimen Anatomical Collection Method Collection Time Receive d Time (Source) Location / / Volume Laterality Blood 01/22/2022 3:08 PM 2 3:33 CDT PM CDT Coby Levine MD LAB BLOOD ORDERABLES Performing Organization Address City/[facility] Phon e Number [facility] CANCER Unless otherwise noted, [address] all lab tests performed by: Division of Pathology and Laboratory Medicine [address] [place] Lipase Level (01/22/2022 3:08 PM CDT) athologist Signature Lipase Lvl 23 13 - 60 U/L [facility] Specimen Anatomical Collection Method Collection Time Receive d Time (Source) Location / / Volume Laterality Blood 01/22/2022 3:08 PM 2 3:33 CDT PM CDT Coby Levine MD LAB BLOOD ORDERABLES Performing Organization Address City/[facility] Phon e Number [facility] Unless otherwise noted, [address] all lab tests performed by: Division of Pathology and Laboratory Medicine [facility]5 [facility] Glucose Level (01/22/2022 3:08 PM CDT) athologist Signature Glucose Level 82 70 - 99 [facility] mg/dL [facility] Comment: Effective 12/07/15, the glucose reference intervals have been updated based on [place] [employer] guidelines (Standards of Medical Care in Diabetes 2016. Diabetes Care 2016; 39: S13-S22). Fasting blood glucose: Normal: 70-99 mg/dL Impaired fasting glucose (increased risk for diabetes or pre-diabetes): 100- 125 mg/dL Diabetes mellitus: >/=126 mg/dL Random blood glucose: Normal: 70-199 mg/dL Note: Random glucose >100 mg/dL is assoc iated with increased risk for diabetes Specimen Anatomical Collection Method Collection Time Receive d Time (Source) Location / / Volume Laterality Blood 01/22/2022 3:08 PM 2 3:33 CDT PM CDT Coby Levine MD LAB BLOOD ORDERABLES Performing Organization Address City/State/ZIP [facility] Phon e Number [facility] Unless otherwise noted, [address] all lab tests performed by: Division of Pathology and Laboratory Medicine [address] [place] CEA (01/22/2022 3:08 PM CDT) athologist Signature CEA 2.7 <=3.8 ng/mL [facility] Comment: Reference Ranges: Smoker: 0.0 - 5.5 Non-Smoker: 0.0 - 3.8 This test is measured by electrochemilum inescence immunoassay on Deborah Rosita immunoassay analyzers. Results obtained in different methods are not interchangeable. Specimen Anatomical Collection Method Collection Time Receive d Time (Source) Location / / Volume Laterality Blood 01/22/2022 3:08 PM 2 3:33 CDT PM CDT Coby Levine MD LAB BLOOD ORDERABLES Performing Organization Address City/[facility]/ZIP Code Phon e Number [facility] Unless otherwise noted, [address] all lab tests performed by: Division of Pathology and Laboratory Medicine [address] [place] Calcium Level (01/22/2022 3:08 PM CDT) P athologist Signature Calcium Lvl 9.3 8.4 - 10.2 [facility] mg/dL [facility] Specimen Anatomical Collection Method Collection Time Receive d Time (Source) Location / / Volume Laterality Blood 01/22/2022 3:08 PM 2 3:33 CDT PM CDT Coby Levine MD LAB BLOOD ORDERABLES Performing Organization Address City/[facility]/ZIP Code Phon e Number [facility] Unless otherwise noted, [address] all lab tests performed by: Division of Pathology and Laboratory Medicine [address] [place] Amylase Level (01/22/2022 3:08 PM CDT) P athologist Signature Amylase Lvl 53 28 - 100 [facility] U/L [facility] Specimen Anatomical Collection Method Collection Time Receive d Time (Source) Location / / Volume Laterality Blood 01/22/2022 3:08 PM 2 3:33 CDT PM CDT Coby Levine MD LAB BLOOD ORDERABLES Performing Organization Address City/[facility]/ZIP [facility] Phon e Number [facility] Unless otherwise noted, [address] all lab tests performed by: Division of Pathology and Laboratory Medicine [address] [place] Albumin Level (01/22/2022 3:08 PM CDT) P athologist Signature Albumin Lvl 4.7 3.5 - 5.2 [facility] gm/dL [facility] Specimen Anatomical Collection Method Collection Time Receive d Time (Source) Location / / Volume Laterality Blood 01/22/2022 3:08 PM 2 3:33 CDT PM CDT Coby Levine MD LAB BLOOD ORDERABLES Performing Organization Address City/State/ZIP Code Phon e Number [facility] Unless otherwise noted, [address] all lab tests performed by: Division of Pathology and Laboratory Medicine [address] [place] [address] Electrolyte Panel (01/22/2022 3:08 PM CDT) P athologist Signature Sodium Lvl 136 136 - 145 [facility] mEq/L [facility] Potassium Lvl 3.7 3.5 - 5.1 [facility] mEq/L [facility] Chloride 100 98 - 107 [facility] mEq/L [facility] CO2 25 22 - 29 [facility] mEq/L [facility] Anion Gap 11 4 - 14 [facility] mEq/L [facility] Specimen Anatomical Collection Method Collection Time Receive d Time (Source) Location / / Volume Laterality Blood 01/22/2022 3:08 PM 2 3:33 CDT PM CDT Coby Levine MD LAB BLOOD ORDERABLES Performing Organization Address City/[facility] Code Phon e Number [facility] Unless otherwise noted, [address] all lab tests performed by: Division of Pathology and Laboratory Medicine [address] [place] [address] Pathology Biopsy Interpretation (01/22/2022 1:35 PM CDT) Component Value Ref Test Analysis Performed Pathologis t Range Method Time At Signature Submitted Colon cancer, not otherwise specified [C18.9] 01/23/2022 [facility] Clinical Personal history of colonic polyp [Z86.010] 12:24 PM History CDT Diagnosis A. Sigmoid colon polyp, biopsy: 01/24/20 22 [facility] Electronically Changes suggestive of inflammatory polyp. 12:24 PM signed by Miguelangel No dysplasia or malignancy seen. CDT MD Radha on 01/23/2022 at 12:24 PM Gross A: 01/23/2022 [facility] Description Colon, sigmoid colon polyp: Two cope to red-brown pieces of tissue measuring 0.6 and 1.1 cm, entirely submitted in A1. GM 12:24 PM CDT Disclaimer "Some tests 01/23/2022 [facility] reported here may 12:24 PM have been CDT developed and performance characteristics determined by [facility] Pathology and Laboratory Medicine. These tests have not been specifically cleared or approved by the U.S. Food and Drug Administration. If applicable, controls were reviewed and showed appropriate reactivity." Specimen Anatomical Collection Method Collection Time Receive d Time (Source) Location / / Volume Laterality Tissue (Colon) 01/22/2022 1:35 PM 022 3:54 CDT PM CDT Coby Levine MD LAB PATHOLOGY ORDERABLES Performing Organization Address City/State/ZIP Code Phon [place] [address] [address] [place] COVID-19 (SARS-CoV-2) PCR-Asymptomatic [facility] (01/19/2022 9:32 AM CDT) [facility] Method Time Signature COVID19 (SARS Not Detected Not Detected [place] CoV-2) [facility] Comment: This test is a qualitative reverse-trans criptase polymerase chain reaction (RT- PCR) developed for the Deborah ROSITA 6800 system and intended for qualitative detection of SARS CoV-2 RNA in nasopharyngeal a nd oropharyngeal swab specimens collecte d from any individuals, including those suspected o f COVID-19 by their healthcare provider, and those without symptoms or other reasons to suspect COVID-19. A fact sheet for patients provided by the dietitian teaching ( [employer]) can be rev iewed at: https://www.fda.gov/media/925558/downloa d. A fact sheet for Health Care providers is provided by the dietitian teaching ([employer]) and can be reviewed at: https://www.fda.gov/media/947413/download Results must be interpreted within the c ontext of all relevant clinical and laboratory findings and should not form the sole basis for a diagnosis or treatment decision. Positive results do not rule out bacterial infection or co- infection with other viruses. Negative results do not rule ou t SARS-CoV-2 and must be combined with clinical observations, patient history, and/or epidemiological information. "Presumptive Positive" results are due t o partial amplification of SARS-CoV-2 targets and indicates low amounts of virus present in the specimen at or near the limit of detection. Regardless, individuals with "Presumptive Positive" results should be managed per institutional guidelines as individuals positive for SARS-CoV-2 virus, including use of appropriate infection control protocols. Internal controls are included to assess for possible amplification inhibitors. If inhibition is detected, testing is repeated and if inhibition is confirmed the specimen is resulted as "Invalid". When an "Invalid" result occurs, it is recomm ended to wait 3 days before submitting a new spec imen for testing if clinically indicated. This assay has been approved by the FDA for use only under Emergency Use Authorization (EUA) in laboratories that have been CLIA-certified to perform moderate-complexity and high-complexity tests. The performance characteristics of this assay were verified by the Microbiology Laboratory at [facility], CLIA Accreditation #: [id number] and CAP Accreditation #: [id number]. COVID19 SARS Source CREDIT CHECKER Swab [place] MD [facility] [[email or web address]] COVID19 SARS Indication Post-Travel Testing [facility] Specimen (Source) Anatomical Collection Method Collection Time Re ceived Time Location / / Volume Laterality Nasopharyngeal Swab 01/19/2022 9:32 01/19 AM CDT 10:28 AM CDT Filomena Ingram MD MICROBIOLOGY - GENERAL ORDER EUGENIO Performing Organization Address City/State/ZIP Code Phon e Number [facility] Unless otherwise noted, [place] [address] [place] all lab tests performed by: Division of Pathology and Laboratory Medicine [address] [place] [address] [place] after 01/23/2021 Insurance Payer Benefit Plan / Subscriber ID Effective Dates Phone Addre ss Type Group BLUE CROSS BCBS PPO POS [id number] 2019-Present [address] PPO BLUE SHIELD OUT OF STATE [place], [place] GENERIC [address] Naya Gaona Personal/Family Self [address] ([place]) [place] [address] Naya Gaona Personal/Family Self [address] (Home) [place] [address] Advance Directives Code Status Date Activated Date Inactivated Comments Full Code 10/18/2017 4:01 PM 10/22/2017 4:09 PM Care Teams Or Assistant Relationship Specialty Start Date End Date Prakash Maki MD PCP - General Colorectal Surgery 09/27/[address] [place] [address] [id number]
--- OUTSIDE RECORDS SUMMARY | 2022-01-23 13:50 | XMS REPORT | Continuity of Care Document ---
:1980 Author Organization [facility] t Address [address] [place] [address] Care Team Providers Name Role Phone [phone] Primary Care Physician Unavailable TORRES ATKINS Attending Clinician Unavailable Lizbet Hammond MD Attending Clinician LIZBET HAMMOND Attending Clinician Unavailable Noe Villagomez MD Attending Clinician Geraldo Marvin MD Attending Clinician Gucci Frey Attending Clinician GUCCI TERESA Attending Clinician Unavailable Prakash Perkins MD Attending Clinician [phone] PRAKASH PERKINS Attending Clinician Unavailable Alonso Fierro RN Attending Clinician Unavailable Jacklyn Scott RN Attending Clinician Unavailable Samantha Murguia MA Attending Clinician Unavailable Agus Gross MA Attending Clinician [phone] Dilma Grier APN Attending Clinician Shila CHRISTIANSON, Shiela Lane Attending Clinician Unavailable CAROLE MINAYA Attending Clinician Unavailable WALT TIMMONS Attending Clinician Unavailable Vls-Lab Attending Clinician Unavailable Unknown, Attending Attending Clinician Unavailable UNKNOWN, ATTENDING Attending Clinician Unavailable GAVIN SUAREZ Attending Clinician Unavailable CHRIS CARDOZA Attending Clinician Unavailable TAYO HERNANDEZ Attending Clinician Unavailable LIZBET HAMMOND Admitting Clinician Unavailable CAROLE MINAYA Admitting Clinician Unavailable Payers Payer Name Policy Type Policy Number Effective Date Expiration Date Lupe an [place] POS [id number] 2018 2019 00:00:0 0 00:00:00 Problems Condition Condition Condition Status Onset Resolution Last Treating Co mments Source Name Details Category Date Date Treatment Clinician Date Personal Personal Disease Active Overview: Un leila history of history of 6-26 Formattin ity of colonic colonic 00:00: g of this [place] polyp polyp 00 note might be Anderso different n from the Cancer original. Center Added automatic ally from request for surgery [id number] Colon Colon Disease Active Overview: Univer s cancer cancer 9- Formattin ity of 00:00: g of this [place] 00 note might be Anderso different n from the Cancer original. Center Added automatic ally from request for surgery [id number] datory [facility] ICD-10 2020 UPDATE Anxiety Anxiety Disease Active Univers 6-08 ity of 00:00: [place] 00 MD [facility] Mass of Mass of Disease Active Univers colon colon 6-07 ity of 00:00: [place] 00 MD [facility] Cancer of Cancer of Disease Active Overview: Univers ascending ascending 5-27 Formattin i ty of colon colon 00:00: g of this [place] 00 note might be Anderso different n from the Cancer original. 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 00:00: [place] ascending ascending 00 Medi elizabet colon colon Branch Minaya Minaya Disease Active Univers syndrome syndrome 1- ity of 00:00: [place] 00 Medical Branch No known No known Disease Metho di active active st problems problems Hospit a l MTHFR MTHFR Disease Active Univers mutation mutation ity of [facility] Allergies, Adverse Reactions, Alerts Allergy Allergy Status Severity Reaction(s) Onset Inactive Treating Comm ents Source Name Type Date Date Clinician OXYCODON DRUG Active Other MD Radha TOMAS 4-24 Anderso 00:00: n 00 TRAZODON DRUG Active Nausea MD Radha TOMAS 4-24 Anderso 00:00: n 00 OXYCODON DRUG Active Other 2018-0 MD E INGREDI 4-24 Anderso 00:00: n 00 TRAZODON DRUG Active Nausea 2018-0 MD E INGREDI 4-24 Anderso 00:00: n 00 OXYCODON DRUG Active Other 2018-0 MD E INGREDI 4-24 Anderso 00:00: n 00 TRAZODON DRUG Active Nausea 2018-0 MD E INGREDI 4-24 Anderso 00:00: n 00 OXYCODON DRUG Active Other 2018-0 MD E INGREDI 4-24 Anderso 00:00: n 00 TRAZODON DRUG Active Nausea 2018-0 MD E INGREDI 4-24 Anderso 00:00: n 00 OXYCODON DRUG Active Other 2018-0 MD E INGREDI 4-24 Anderso 00:00: n 00 TRAZODON DRUG Active Nausea 2018-0 MD E INGREDI 4-24 Anderso 00:00: n 00 OXYCODON DRUG Active Other 2018-0 MD E INGREDI 4-24 Anderso 00:00: n 00 TRAZODON DRUG Active Nausea 2018-0 MD E INGREDI 4-24 Anderso 00:00: n 00 OXYCODON DRUG Active Other 2018-0 MD E INGREDI 4-24 Anderso 00:00: n 00 TRAZODON DRUG Active Nausea 2018-0 MD E INGREDI 4-24 Anderso 00:00: n 00 OXYCODON DRUG Active Other 2018-0 MD E INGREDI 4-24 Anderso 00:00: n 00 TRAZODON DRUG Active Nausea 2018-0 MD E INGREDI 4-24 Anderso 00:00: n 00 OXYCODON DRUG Active Other 2018-0 MD E INGREDI 4-24 Anderso 00:00: n 00 TRAZODON DRUG Active Nausea 2018-0 MD E INGREDI 4-24 Anderso 00:00: n 00 OXYCODON DRUG Active Other 2018-0 MD E INGREDI 4-24 Anderso 00:00: n 00 TRAZODON DRUG Active Nausea 2018-0 MD E INGREDI 4-24 Anderso 00:00: n 00 OXYCODON DRUG Active Other 2018-0 MD E INGREDI 4-24 Anderso 00:00: n 00 TRAZODON DRUG Active Nausea 2018-0 MD E INGREDI 4-24 Anderso 00:00: n 00 OXYCODON DRUG Active Other 2018-0 MD E INGREDI 4-24 Anderso 00:00: n 00 OXYCODON DRUG Active Other 2018-0 MD E INGREDI 4-24 Anderso 00:00: n 00 TRAZODON DRUG Active Nausea 2018-0 MD E INGREDI 4-24 Anderso 00:00: n 00 Oxycodon Propensi Active Other (See 2018-0 Nausea, M ethodi e ty to Comments) 4-24 vomiting, st adverse 00:00: dizzy Hospita reaction 00 l s to drug Trazodon Propensi Active GI 2018-0 Method i e ty to Intolerance 4-24 st adverse 00:00: Hospita reaction 00 l s to drug Oxycodon Propensi Active GI 2018-0 Nausea, Unive rs e ty to Intolerance 4-24 vomiting, it y of adverse 00:00: dizzy [place] reaction 00 MD lupe bañuelos [facility] Trazodon Propensi Active GI 2018-0 Univer s e ty to Intolerance 4-24 ity o f adverse 00:00: [place] reaction 00 MD lupe bañuelos [facility] TRAZODON DRUG Active Nausea 2018-0 MD E INGREDI 4-24 Anderso 00:00: n 00 OXYCODON DRUG Active Other 2018-0 MD E INGREDI 4-24 Anderso 00:00: n 00 TRAZODON DRUG Active Nausea 2018-0 MD E INGREDI 4-24 Anderso 00:00: n 00 OXYCODON DRUG Active Other 2018-0 MD E INGREDI 4-24 Anderso 00:00: n 00 TRAZODON DRUG Active Nausea 2018-0 MD E INGREDI 4-24 Anderso 00:00: n 00 OXYCODON DRUG Active Other 2018-0 MD E INGREDI 4-24 Anderso 00:00: n 00 TRAZODON DRUG Active Nausea 2018-0 MD E INGREDI 4-24 Anderso 00:00: n 00 OXYCODON DRUG Active Other 2018-0 MD E INGREDI 4-24 Anderso 00:00: n 00 TRAZODON DRUG Active Nausea 2018-0 MD E INGREDI 4-24 Anderso 00:00: n 00 OXYCODON DRUG Active Other 2018-0 MD E INGREDI 4-24 Anderso 00:00: n 00 TRAZODON DRUG Active Nausea 2018-0 MD E INGREDI 4-24 Anderso 00:00: n 00 OXYCODON DRUG Active Other 2018-0 MD E INGREDI 4-24 Anderso 00:00: n 00 TRAZODON DRUG Active Nausea 2018-0 MD E INGREDI 4-24 Anderso 00:00: n 00 OXYCODON DRUG Active Other 2018-0 MD E INGREDI 4-24 Anderso 00:00: n 00 TRAZODON DRUG Active Nausea 2018-0 MD E INGREDI 4-24 Anderso 00:00: n 00 OXYCODON DRUG Active Other 2018-0 MD E INGREDI 4-24 Anderso 00:00: n 00 TRAZODON DRUG Active Nausea 2018-0 MD E INGREDI 4-24 Anderso 00:00: n 00 OXYCODON DRUG Active Other 2018-0 MD E INGREDI 4-24 Anderso 00:00: n 00 TRAZODON DRUG Active Nausea 2018-0 MD E INGREDI 4-24 Anderso 00:00: n 00 OXYCODON DRUG Active Other 2018-0 MD E INGREDI 4-24 Anderso 00:00: n 00 TRAZODON DRUG Active Nausea 2018-0 MD E INGREDI 4-24 Anderso 00:00: n 00 OXYCODON DRUG Active Other 2018-0 MD E INGREDI 4-24 Anderso 00:00: n 00 TRAZODON DRUG Active Nausea 2018-0 MD E INGREDI 4-24 Anderso 00:00: n 00 OXYCODON DRUG Active Other 2018-0 MD E INGREDI 4-24 Anderso 00:00: n 00 TRAZODON DRUG Active Nausea 2018-0 MD E INGREDI 4-24 Anderso 00:00: n 00 OXYCODON DRUG Active Other 2018-0 MD E INGREDI 4-24 Anderso 00:00: n 00 TRAZODON DRUG Active Nausea 2018-0 MD E INGREDI 4-24 Anderso 00:00: n 00 OXYCODON DRUG Active Other 2018-0 MD E INGREDI 4-24 Anderso 00:00: n 00 TRAZODON DRUG Active Nausea 2018-0 MD E INGREDI 4-24 Anderso 00:00: n 00 OXYCODON DRUG Active Other 2018-0 MD E INGREDI 4-24 Anderso 00:00: n 00 TRAZODON DRUG Active Nausea 2018-0 MD E INGREDI 4-24 Anderso 00:00: n 00 OXYCODON DRUG Active Other 2018-0 MD E INGREDI 4-24 Anderso 00:00: n 00 TRAZODON DRUG Active Nausea 2018-0 MD E INGREDI 4-24 Anderso 00:00: n 00 OXYCODON DRUG Active Other 2018-0 MD E INGREDI 4-24 Anderso 00:00: n 00 TRAZODON DRUG Active Nausea 2018-0 MD E INGREDI 4-24 Anderso 00:00: n 00 OXYCODON DRUG Active Other 2018-0 MD E INGREDI 4-24 Anderso 00:00: n 00 TRAZODON DRUG Active Nausea 2018-0 MD E INGREDI 4-24 Anderso 00:00: n 00 OXYCODON DRUG Active Other 2018-0 MD E INGREDI 4-24 Anderso 00:00: n 00 TRAZODON DRUG Active Nausea 2018-0 MD E INGREDI 4-24 Anderso 00:00: n 00 OXYCODON DRUG Active Other 2018-0 MD E INGREDI 4-24 Anderso 00:00: n 00 TRAZODON DRUG Active Nausea 2018-0 MD E INGREDI 4-24 Anderso 00:00: n 00 OXYCODON DRUG Active Other 2018-0 MD E INGREDI 4-24 Anderso 00:00: n 00 TRAZODON DRUG Active Nausea 2018-0 MD E INGREDI 4-24 Anderso 00:00: n 00 OXYCODON DRUG Active Other 2018-0 MD E INGREDI 4-24 Anderso 00:00: n 00 TRAZODON DRUG Active Nausea 2018-0 MD E INGREDI 4-24 Anderso 00:00: n 00 OXYCODON DRUG Active Other 2018-0 MD E INGREDI 4-24 Anderso 00:00: n 00 TRAZODON DRUG Active Nausea 2018-0 MD E INGREDI 4-24 Anderso 00:00: n 00 NO KNOWN Drug Active Univers ALLERGIE Class ity of S [place] [facility] Family History Family Member Diagnosis Comments Start Date Stop Date Source Paternal Cancer [facility] Paternal -Gastrointestinal Univers ity of grandfather (Esophagus, Liver, [place] MD Lopez Bile Duct, Stomach, [facility] Pancreas, Colon, Rectum, Anus Natural sister [facility] Natural father Colon cancer [facility] Maternal aunt Heart attack [facility] Natural mother Diabetes [facility] Natural mother Hypertension [facility] Cousin -Gastrointestinal Univers ity of (Esophagus, Liver, [place] MD Lopez Bile Duct, Stomach, [facility] Center Pancreas, Colon, Rectum, Anus Paternal Cervical cancer Universit y of grandmother Lindsay [facility] Social History Social Habit Start Date Stop Date Quantity Comments Source Exposure to 2022-01-12 2022-01-[address] [facility] SARS-CoV-2 (event) 00:00:00 10:38:00 [place] [facility] Alcohol intake 2018-04-29 2018-04-29 Current drinker Metho dist 00:00:00 00:00:00 of [facility] (finding) Tobacco use and 2017-10-17 2017-10-17 Smokeless tobacco Un iversity of exposure 00:00:00 00:00:00 non-user [place] MD Sanchez [facility] Cigarettes smoked 2017-09-03 2017-09-[address] current (pack per 00:00:00 00:00:00 [facility] l day) - Reported Cigarette 2017-09-03 2017-09-03 Druze pack-years 00:00:00 00:00:00 Hospital Alcohol Comment 2017-07-04 2017-07-04 ocassional Druze 00:00:00 00:00:00 Hospital History of tobacco 2012-05-13 Smoker Univer sity of use 00:00:00 [facility] Sex Ass[birth year] At [birth year] Druze 00:00:00 00:00:00 Hospital Smoking Status Start Date Stop Date Source Former smoker 2018-01-16 00:00:00 2018-01-16 [facility] Medications Ordered Filled Start Stop Current Ordering Indication Dosage Frequency Signature Comments Components Source Medication Medication Date Date Medication? Clinician (SIG) Name Name cholecalcif Yes 400U Take 400 Un leila latonia, 9-12 Units by ity of vitamin D3, 14:54: mouth. Kristel s (VITAMIN 23 D3) 4,000 Anderso units tab n tablet Cancer Center ibuprofen Yes pain 200mg Take 200 Uni vers (ADVIL,MOTR 9-12 mg by ity of [place]) 200 mg 14:54: mouth [place] tablet 23 every 8 (eight) Boone jones as n needed. Cancer Center vit Yes 1{tbl} Take 1 Univers D3/folic 9-12 tablet by ity of acid/B2/B6/ 14:54: mouth [place] B12 23 daily. (FOLPARAM DESHPANDE) edda [facility] aspirin 81 Yes 81mg Take 81 mg U nivers mg EC 9-12 by mouth ity of tablet 14:54: daily. 23 MD Boone bañuelos [facility] omeprazole Yes 20mg Take 20 mg U nivers (PriLOSEC) 9-12 by mouth ity o f 20 mg 14:54: daily. [place] capsule 23 MD Boone bañuelos [facility] bisacodyl Yes 1{tbl} Take 1 Univ ers (EX-LAX 9-12 tablet by ity of ULTRA ORAL) 14:54: mouth [place] 23 needed. MD Boone bañuelos [facility] L. Yes 1{tbl} Take 1 Univers acidophilus 9-12 tablet by ity of /Bifid. 14:54: mouth [place] animalis 23 daily. (DAILY Boone PROBIOTIC n ORAL) [facility] diazePAM Yes 2mg Take 2 mg Univ ers (VALIUM) 2 9-12 by mouth ity o f mg tablet 14:54: [place]. [place] 23 [place] Bo[place] bañuelos [facility] ALPRAZolam Yes .5mg Take 0.5 Uni vers (XANAX) 0.5 9-12 mg by ity of mg tablet 14:54: [place] 23 bedtime. MD Boone bañuelos [facility] sodium,pota Yes Colonoscopy 2 bottles Univers ssium,mag 01-19 planned w/ no ity of sulfates 00:00: refills [place] 17.5-3.13-1 00 .6 gram Boone bañuelos [facility] polyethylen 2021- No Colonoscopy Use as Univers e 01-08 planned directed ity of glycol-elec 00:00: 00:00 by Lindsay hobson 00 :00 ordering (JULIANNATESASHA) provider. Momo kennedyo 420 g n [facility] Center TRINTELLIX 2018-05 Yes 1{tbl} Take 1 Uni vers 20 mg tab 0-06 tablet by ity o f 00:00: mouth 00 daily. MD Boone bañuelos [facility] FABB Yes TAKE 1 Univers 2.2-25-1 mg 9-20 TABLET BY ity of tab 00:00: MOUTH DAILY. MD Boone bañuelos [facility] aspirin 2017-05 Yes 81mg Take 81 mg Meth kristina (ECOTRIN) 2-[address] 81 MG 14:44: Hospita enteric 27 l coated tablet ibuprofen 2017-05 Yes 200mg Take 200 Met hodi (ADVIL,MOTR 2-[address] [place]) 200 MG 14:44: mouth. Hospi ta tablet 27 l Saccharomyc 2017-05 Yes 250mg Take 250 M ethodi es 2-[address] boulardii 14:43: mouth. Hospit a (FLORASTOR) 36 l 250 mg capsule cyanocobala 2017-05 Yes Take by Met hodi min 2-[address] (CYANOCOBAL 14:42: Hospit a SHUKLA) 2000 28 l MCG tablet cholecalcif 2017-05 Yes 400U Take 400 Me thodi latonia, 2-[address] vitamin D3, 14:42: mouth. Hosp georgette 4,000 unit 28 l tablet acetaminoph 2017-05 Yes 500mg Take 500 M ethodi en 2-[address] (TYLENOL) 14:42: mouth. Hospit a 500 MG 28 l tablet TRINTELLIX 2017-05 Yes Methodi 10 mg 1-27 st tablet 00:00: Hospita 00 l FABB 2017-05 Yes Methodi 2.2-25-1 mg 1-25 st tablet 00:00: Hospita 00 l lamoTRIgine 2017-05 Yes TK 2 TS PO Methodi (LaMICtal) 1-[address] 25 MG 00:00: Hospita tablet 00 l VIT 2017-05 Yes 1{tbl} QD Take 1 Methodi D3/FOLIC 0-[address] ACID/B2/B6/ 10:13: mouth Hospi ta B12 45 daily. l (FOLGARD ORAL) ergocalcife 2017-05 Yes 2{tbl} QD Take 2 Me thodi rol, 0-[address] vitamin D2, 10:13: mouth Hospi ta (VITAMIN D2 45 nightly. l ORAL) ibuprofen 2017-05 Yes 200mg Q6H Take 200 Met hodi (ADVIL,MOTR 0-[address] [place]) 200 MG 10:13: mouth Hospit a tablet 45 every 6 l (six) hours as needed for mild pain. aspirin 2017-05 Yes 81mg QD Take 81 mg Meth kristina (ECOTRIN) 0-[address] 81 MG 10:08: nightly. Hospita enteric 29 l coated tablet Folic Yes [id number] 1{tbl} Take 1 Uni vers Acid-Vit 9-28 tablet by ity of B6-Vit B12 00:00: mouth [place] (FOLGARD 00 daily. Medical RX) Branch 2.2-25-1 mg Tab folic Yes 1{tbl} Take 1 Methodi acid-vit -[address] B6-vit B12 00:00: mouth. Hospi ta 2.2-25-1 mg 00 l tablet pantoprazol Yes 20mg Take 1 Univ ers e 20 mg EC 01-31 tablet by ity of tablet 00:00: mouth 2 [place] 00 (two) Medical times Branch daily. Lactobacill Yes [id number] 1{capsu Take 1 Univers us 9-20 le} capsule by ity of rhamnosus 00:00: mouth [place] GG 00 daily. Medical (CULTURELLE Branch ) 15 billion cell CpSP Lactobacill Yes 1{capsu Take 1 M ethodi us 9-20 le} capsule by st rhamnosus 00:00: mouth. Hospit a GG 15 00 l billion cell capsule, sprinkle aspirin 81 Yes 81mg Take 81 mg U nivers mg EC 9-06 by mouth ity of tablet 19:21: daily. [place] 00 Medical Branch pantoprazol Yes [id number] 20mg Take 1 Univers e 9- tablet by ity of (PROTONIX) 00:00: mouth [place] 20 mg EC 00 daily. Medical tablet Branch fluconazole Yes [id number] Take 1 tab Univers (DIFLUCAN) 9-06 PO every ity o f 150 mg 00:00: other day [place] tablet 00 for 3 Medical doses Branch pantoprazol Yes 20mg Take 20 mg Methodi e 9-[address] (PROTONIX) 00:00: Hospita 20 MG EC 00 l tablet nystatin Yes [id number] Take 5 mL Univers 100,000 01-16 by mouth 4 ity of unit/mL 00:00: (four) [place] suspension 00 times Medical daily. Branch nystatin Yes [id number] Take Method i (MYCOSTATIN 01-16 500,000 st ) 100,000 00:00: Units by Hosp georgette unit/mL 00 mouth. l suspension ALPRAZolam Yes 1mg Q.5D Take 1 mg Me thodi XR (XANAX 4-[address] XR) 1 MG 24 00:00: (two) Hospi ta hr tablet 00 times a l day. lamoTRIgine Yes 200mg QD Take 200 M ethodi (LaMICtal) 4-[address] 200 MG 00:00: mouth Hospita tablet 00 nightly. l ALPRAZolam Yes 1mg Take 1 mg Me thodi XR (XANAX 4-[address] XR) 1 MG 24 00:00: Hospit a hr tablet 00 l ALPRAZolam Yes 1mg Take 1 mg Un leila 1 mg 24 hr 4-09 by mouth. ity of tablet 00:00: [place] [facility] ALPRAZolam Yes 1mg Take 1 mg Me thodi XR (XANAX 4-[address] XR) 2 MG 24 00:00: Hospit a hr tablet 00 l clonazePAM 2016-05 Yes TK 1/2 TO Un leila 0.5 mg 0-11 1 T PO HS ity of tablet 00:00: PRN [place] [facility] lamoTRIgine 0 Yes 1{tbl} Take 1 Me thodi (LaMICtal) 3-[address] 100 MG 00:00: mouth. Hospita tablet 00 l lamoTRIgine Yes 1{tbl} Take 1 Un leila 100 mg 3-08 tablet by ity of tablet 00:00: mouth [place] 00 daily. Medical Branch traZODONE Yes Univers 50 mg 2-23 ity of tablet 00:00: [place] [id number] Medical Branch Immunizations Ordered Filled Immunization Date Status Comments [facility] e Immunization Name Name Influenza, 2018-02-14 Completed University of Unspecified 00:00:00 [facility] Influenza, 2016-03-26 Completed University of Quadrivalent 00:00:00 [facility] Influenza Virus 2016-03-26 [facility] Quad IM 3+ 00:00:00 [facility] Branch Vital Signs Vital Name Observation Time Observation Value Comments Source WEIGHT 2020-08-25 07:12:00 68.4 kg Systolic blood 2022-01-22 19:00:00 119 mm[Hg] Univer sity of pressure [facility] Diastolic blood 2022-01-22 19:00:00 82 mm[Hg] Unive rsity of pressure [place] MD [facility] Heart rate 2022-01-22 19:00:00 65 /min [facility] Oxygen saturation in 2022-01-22 19:00:00 100 /min [facility] Arterial blood by Lindsay Zuñiga ndersmarv Pulse oximetry [facility] Center Respiratory rate 2022-01-22 18:50:00 16 /min [facility] Body temperature 2022-01-22 18:48:00 36 Lindsey [facility] Body weight 2022-01-22 17:32:00 64.8 kg [facility] BMI 2022-01-22 17:32:00 23.06 kg/m2 [facility] Procedures Procedure Date / Time Performing Clinician Source Performed COMPREHENSIVE METABOLIC 2022-01-22 20:08:00 Lizbet Hammond [facility] PANEL [facility] Center MAGNESIUM LEVEL 2022-01-22 20:08:00 [facility] PHOSPHORUS LEVEL 2022-01-22 20:08:00 [facility] COMPLETE BLOOD COUNT W/ 2022-01-22 20:08:00 Lizbet Hammond [facility] DIFFERENTIAL [facility] CARCINOEMBRYONIC ANTIGEN 2022-01-22 20:08:00 Lizbet Hammond [facility] [place] [facility] Center AMYLASE LEVEL 2022-01-22 20:08:00 [facility] L[facility] 2022-01-22 20:08:00 Lizbet Hammond [facility] GLUCOSE LEVEL 2022-01-22 20:08:00 [facility] BLO[facility] UREA NITROGEN 2022-01-22 20:08:00 Lizbet Hammond [facility] ELECTROLYTE PANEL 2022-01-22 20:08:00 Lizbet Hammond [facility] SERUM CREATININE 2022-01-22 20:08:00 [facility]GLOM[facility] FILTRATION 2022-01-22 20:08:00 [facility] CALCI[facility] LEV[facility] TOTAL 2022-01-22 20:08:00 Lizbet Hammond [facility] ALBUMIN LEVEL 2022-01-22 20:08:00 Lizbet Hammond [facility] ALKALINE PHOSPHATASE 2022-01-22 20:08:00 Lizbet Hammond [facility] ALANINE AMINOTRANSFERASE 2022-01-22 20:08:00 Lizbet Hammond [facility] ASPARTATE AMINOTRANSFERASE 2022-01-22 20:08:00 Shaka Hammond i [facility] TOTAL PROTEIN 2022-01-22 20:08:00 [facility] FRACTIONATED BILIRUBIN 2022-01-22 20:08:00 [facility] Results CBC 2022-01-22 20:08:00 Lizbet Hammond [facility] MANUAL DIFFERENTIAL 2022-01-22 20:08:00 Lizbet Hammond [facility] PATHOLOGY BIOPSY 2022-01-22 18:35:00 Lizbet Hammond [facility] INTERPRETATION [facility] BLOOD UREA NITROGEN 2022-01-19 14:56:00 Gucci Teresa [facility] SERUM CREATININE 2022-01-19 14:56:00 Gucci Teresa [facility] SERUM CREATININE 2022-01-19 14:56:00 Brii [facility] .GLOMERULAR FILTRATION 2022-01-19 14:56:00 Gucci Teresa [facility] RATE [facility] COVID-19 (SARS-COV-2) 2022-01-19 14:32:00 Filomena Ingram [facility] PCR-ASYMPTOMATIC [facility] DIAGNOSTIC FLEXIBLE Carole Minaya [facility] COLONOSCOPY PROXIMAL TO MD Daniel [facility] SPLENIC FLEXURE Center Plan of Care Planned Activity Planned Date Details Comments Source Future Scheduled Test 2022-01-22 COVID-19 Vaccination [facility] 14:54:29 (#1) [code = MD [facility] COVID-19 Vaccination Center (#1)] Future Scheduled Test 2022-01-11 HEPATITIS B VACCINES [facility] 20:40:57 (1 of 3 - 3-dose series) [code = HEPATITIS B VACCINES (1 of 3 - 3-dose series)] Future Scheduled Test 2022-01-11 COVID-19 VACCINE [facility] 20:40:57 (#1) [code = COVID-19 VACCINE (#1)] Future Scheduled Test 2022-01-11 BREAST CANCER [facility] 20:40:57 SCREENING [code = BREAST CANCER SCREENING] Future Scheduled Test 2022-01-11 Screening for [facility] 20:40:57 malignant neoplasm of cervix (procedure) [code = [id number]] Future Scheduled Test 2022-01-11 INFLUENZA VACCINE [place] [facility] 20:40:57 [code = INFLUENZA VACCINE] Future Appointment 2023-08-26 Carole Minaya MD, [facility] 00:00:00 [id number] [place] [address] Center Encounters Start End Encounter Admission Attending Care Care Encounter Source Date/Time Date/Time Type Type Clinicians Facility Department ID 2019-12-02 Outpatient AVNDA DC [id number] 08:58:29 Boone bañuelos 2019-11-06 Outpatient WILBERT VANDA DC [id number] 14:37:14 TORRES bañuelos 2019-11-06 Outpatient WILBERT VADNA DC [id number] 14:37:14 TORRES bañuelos 2022-01-22 2022-01-22 [facility] [id number] [facility] 14:55:13 14:55:13 Encounter , Lizbet [id number] it y of [id number] [facility]8 [facility] 2022-01-22 2022-01-22 Outpatient [facility] DC [id number] 14:55:13 14:55:13 , LIZBET bañuelos 2022-01-22 2022-01-22 [facility] 1.2.840.1 [id number] [facility] 10:44:00 14:54:00 Encounter , Lizbet 90665.1.1 it y of 3.412.2.7 [place] .3.495617 MD Nicole8 [facility] 2022-01-22 2022-01-22 Outpatient [facility] Linda/Hep/Nu [id number] 10:44:00 14:54:00 , LIZBET bañuelos 2022-01-22 2022-01-22 Anesthesia Noe Villagomez 1.2.840.1 [id number] [facility] 13:13:00 13:49:00 Event Geraldo Marvin 16597.1.1 ity of 3.412.2.7 [place] .3.109195 MD Nicole8 [facility] 2022-01-22 2022-01-22 Surgery [facility] 1.2.840.1 [id number] [facility] 12:00:00 13:00:00 , Lizbet 04377.1.1 ity of 3.412.2.7 [place] .3.794687 MD Nicole8 [facility] 2022-01-22 2022-01-22 Travel 1.2.840.1 1.2.477.675 [id number] Univers 00:00:00 00:00:00 05123.1.1 350.1.13.41 ity of 3.412.2.7 [place].3.698 [place] .3.6337[place] 084.8 MD Nicole8 [facility] 2022-01-19 2022[facility]01-19 [facility] 1.2.840[facility]1 [id number] Univers 09:45:59 23:59:00 Encounter Gucci 69623.1.1 it y of 3.412.2.7 [place] .3.842365 MD Nicole8 [facility] 2022-01-19 2022-01-19 Outpatient JESS TERESA MDA MDA [id number] MD 09:45:59 23:59:00 GUCCI davidson 2022-01-19 2022-01-19 JADEN Gentile 1.2.840.1 [id number] Univers 15:00:00 15:30:00 Appointric slaughter 75366.1.1 i ty of lay Randall 3.412.2.7 Lindsay .3.963301 MD Catalan [facility] 2022-01-19 2022-01-19 Outpatient JESS GENTILE MDA, MDA [id number] 09:22:56 09:49:43 Ruddy SLAUGHTER 2022-01-19 2022-01-19 Clinical Prakash Perkins 1.2.840.1 [id number] Univers 07:15:00 09:49:43 Support Alonso Fierro 25181.1.1 ity of 3.412.2.7 [place] .3.970635 MD Nicole8 [facility] 2022-01-19 2022-01-19 Anesthesia Sonia, 1.2.840.1 [id number] Univers 08:43:21 08:43:21 Event Jacklyn Mills 42914.1.1 ity of 3.412.2.7 [place] .3.648413 MD Catalan [facility] 2022-01-19 2022-01-19 Outpatient JESS [facility]ON[facility] MDA [id number] 07:58:19 07:58:19 Ruddy SLAUGHTER 2022-01-19 2022-01-19 Joce Murguia, 1.2.840.1 [id number] Univers 00:00:00 00:00:00 Samantha 05035.1.1 ity of 3.412.2.7 [place] .3.263648 MD Nicole8 [facility] 2022-01-19 2022-01-19 Telephone Gross, 1.2.840.1 [id number] Univers 00:00:00 00:00:00 Agus 25659.1.1 it y of [place] 3.412.2.7 [place] .3.288702 MD Catalan [facility] 2022-01-19 2022-01-19 Travel 1.2.840.1 1.2.941.137 [id number] Univers 00:00:00 00:00:00 93051.1.1 350.1.13.41 ity of 3.412.2.7 [place].3.698 [place] .3.664[place] 084.8 MD Catalan [facility] 2022-01-19 2022-01-19 Orders Marvel, 1.2.840.1 [id number] Univers 00:00:00 00:00:00 Only Dilma 70357.1.1 ity of 3.412.2.7 [place] .3.060045 MD Nicole8 [facility] 2022-01-18 2022-01-18 Orders Brii, 1.2.840.1 [id number] Univers 00:00:00 00:00:00 Only Gucci 88856.1.1 ity of 3.412.2.7 [place] .3.288953 MD Catalan [facility] 2022-01-08 2022-01-08 Joce Murguia, 1.2.840.1 [id number] Univers 00:00:00 00:00:00 Samantha 87076.1.1 ity of 3.412.2.7 [place] .3.477770 .8 [facility] 2021-11-10 2021-11-10 Ignacio Shiela Fuchs. 1.2.840.1 [id number] [facility] 00:00:00 00:00:00 Only 17052.1.1 ity of 3.412.2.7 [place] .3.373329 .8 [facility] 2020-08-25 2020-08-25 Outpatient JESS MINAYA MDA Linda/Hep/Nu [id number] 06:55:00 09:10:00 CAROLE bañuelos 2020-08-24 2020-08-24 Outpatient JESS GENTILE MDA, MDA [id number] 07:56:46 08:45:45 Ruddy SLAUGHTER 2020-08-22 2020-08-22 Outpatient JESS TIMMONS MDA MDA [id number] 12:11:07 12:14:53 WALT bañuelos 2020-08-22 2020-08-22 Ticket Speculator [facility] 1.2.840.114 [id number] Univers 11:44:50 11:59:50 Visit Unknown, Attending SPECIALTY 350.1.13. 10 ity of CARE 4.2.7.2.686 [facility] AT [phone] [address] 2020-08-22 2020-08-22 Outpatient R [facility] [id number] Univers 11:45:00 11:45:00 [id number] ity [facility] 2020-08-22 2020-08-22 Outpatient R UNKNOWN, [facility] [id number] Univers 11:45:00 11:45:00 ATTENDING ity [facility] 2019-12-03 2019-12-03 Outpatient JESS SUAREZ MDA MDA [id number] 11:30:00 23:59:00 GAVIN bañuelos 2019-12-03 2019-12-03 Outpatient JESS GENTILE MDA, MDA [id number] 12:09:02 13:12:51 Ruddy SLAUGHTER 2019-11-06 2019-11-06 Outpatient JESS MINAYA VANDA Linda/Hep/Nu [id number] 13:24:59 16:55:00 CAROLE bañuelos 2019-11-05 2019-11-05 Outpatient CHRIS GIBSON MDA MDA [id number] 09:38:24 23:59:00 Ruddy bañuelos 2019-11-05 2019-11-05 Outpatient JESS GENTILE MDA MDA [id number] 09:21:47 09:21:47 Ruddy SLAUGHTER 2019-11-05 2019-11-05 Outpatient JESS GENTILE VANDA MDA [id number] 07:11:37 07:11:37 Ruddy SLAUGHTER 2019-11-03 2019-11-03 Outpatient JESS HERNANDEZ VANDA MDA [id number] 00:00:00 00:00:00 TAYO bañuelos Results Test Description Test Time Test Comments Results Result Comments Source Pathology Biopsy Interpretation 2022-01-23 17:24:36 Test Item Value Reference Range Interpretation Comme nts Submitted f2obtTPyLLKni4unZBFroCHrJfNvCqWsFlDyHaqhlXFkLMddtwGfLRtpn7FcX1OlPoQsUUnsxtJcWQKy OjzuraooMBFsUYL1qxJpNSGwBKshCJIvZNbrCi4nnBLkdVgiUrOeTNKtv2mxlzPJrfebvGe5m8meQECr OpO3yHLpIGizS2lsotBtsGAbXNKaUAy7pX59EENncY0 Clinical zfYVrRZigmgUnRmP5HVfgDDMmVcH5MLDwuVJcJYOsI0opHUSmPXtkCSOrGVwjbUVyTXV7dYijo9E8sNX maUHqbMwrNmPwRdJlZxCPo4FaTUk3wNunT4AsVEKaYuP6nYWkQKGzYCifTJLaDRBfoeC0bV34SEhacbO 5iUAkn8Ctt29ix856oQ4dpUGbYOQ3PPSrRHFxcZJiIO History SbCFD6TDFkgXYkQ7znWYKcNE2fgkdtPQilHLzsXCDawDW5NFSxsWPwE2RvRXBhZWruQSNpnwr3KcFhNq 1qqHHswPcuWUsod9kmt0cmuYSoIrj3HMFiBeDgInsvPUhmt7Wcc6mhICDhpb4kUTU8eZGccSyog3Q3vK QsJDRtzERgqaJiTMTpTmC4UQjnOR3bcs49OUNvZLI1a (test code u7glGAvdHbyiiSueYAtEEfoC4NpAUAgu819IMNfG1ZsOTEws6U6oyBwTtQiQIAoaBT1hfF0YDQaUOi3y URoloS8mzSjwWVkI2jxuQ1bGWGjGX9crpdfo6ncOCvaIAcbAOKcwTV9gsS0BRAfxHShS1ZqdA2qXIOxV PyhKIHppdo5DnDeQu7obVLdeCtaAEriZaafYHyxNUTc = 90697) vfRlndFfcRcjCQIxOEWlSMzmDISxDGirFDJqYQKqBcZhcXzchCgaxU6tBuOjCmSoSDmaQF3qBFOzF0dm zWHfILHvHCAkB5oaWoLufY8omIvdTNfaucAzFNZubU5zBJSfgoEgstyozi00VU17iKVpd9vyQQCziLPo dLBkTWWpC6MlZU81ZPecANVjNOBzi48hIZalmNhmxI7 tkXWlVhDmg4vkdhkbQYWkpLsgXVuxVSGgRKXiUEswkOVidmnlJIreshYvKRfmlzipTUYqOTltI2wkFkT wDXIrrOisHQepn5VtFLJvWDQpWzRwrZUgoD6= Diagnosis e9rdfICbVRJgiOZ8ARJmUATjx2jeb9LobWVnxRNlUFludFOkwvQnoa98oHG0hQ43BZ7fBKXrFsQ3MMIc uuF8Vtw4ESSdAWJmhJEwZ791w3ltu9ctjrBxeKH9vJvaJXXsjrapLlL6BTroFZEjquryZSq4JHmgPGZl yYN8RDFpyFKaJ7GqWKRtEP6smqs8BZH4FRrjDJOfNrU (test code 3HIVynRJfVJRzfLgkWMcgx400QUR3EkFpAAZirrZluMdofM2zHlNdUFFVOgEaH7lszU7qRIQly0qbxrH ie7f7pTmpMajlmNI6KhknoW5jBPWnFB0cGCSgl8KbB2MnyOb8GSZsZyBhyvIeIJ4dOMNiutldeQ8qsUT yWPoemfYjDu1jATbymMknf3ocQP8fPJ5kzKhlkjIzY9 = 34) bom2Owom8nyZCaaO== Gross y8oubLVfYEZijBKHROosHJlawmOlFDEhzODsD4JhjcjyHFtxMR5pHA0ekFciaREbvFQcOI0OEWBeWcLr WGJphCEckpEtSiEkGAPgeYTwoLA4OCLiWY4rcplrRCvtEHtdXGVwhtJ7DJLzfOOoN8MfUYMhNE6zhjco TTT1VZejtU8wgmQHBomhXp7drEXqmLlvGeFkGnYsJSW Descriptio jCXEnZNOjrZwcMQXpBNj1hH1SDhiyF81nx3W2Ogq9XZMePSEyX5VcXG5vAPQzsRCrV27QDnjiNMC9CSQ SOstyYZLdJS6Df5dhFOVezCOlTBG1TDtdkUEzVJMrIDLtCQd4VVJkIFirrGIpRI2meBlwEtavmRyxd4K kxXZjJVjvHLPrKBDxOCchCWZaAH4NFeZsGCDtLPArSp n (test lwGGx6CDl2SV3XTbUrDXMjCLW1DuU1EGAhEPa5WHmlVH8NBZFlZhP2KZPgKensRZGgJwntFZr6JKUbAF fxHWSavMQvEVcdPdDrBXInPWgqPlPnXDVqSKlwedR3DITzZLeiKILfHnNlUBRAVwepVPJbSRoihWptfZ 3rPEBzH72ig4EWg8TwIN8HVFj4xiJhwkwlmB6pNXCzz code = zEpOWyekRAxI9mhSumtDvIiMcZySJRQi3gipqcyy0xqwN2oEBByo6dmznWue6l2bRwrGgRhJ9MkFLUEg 54haRKpYKSxSPPqNV1kaf55ssGexWFiKROfn8WulAzxo5YcGH4tOQT0svxjBoMvTfCtBI1kJOFrYXWqw MpoBF88vFNafDyit9ZamDr5bMFfSUynUTQwRsCtXSLv [id number] k1NmA6C8FDMjWIntl7hiDIUsKPcxr1YuXMaRTRBKGQ4FTC0slDW7KLdYA8YNK0lFkIKiJLW9ySS3RTNC NzkvfOZ8qKK2gT53PIOwNLSgiFXmMOtgD597F612SVRlNEeov6iqWUYpQNzwa1BpPIfFTNZDEC1LID2p lML1SXaID9QRGXpgYXTfHptrjGZAKQZ1JWvwpIopvGy ) 0d6iwjYJdi5z1FLgpORW8rQrtjOZpwatotTPtmIlabwLlKH0OBBZahLLDQNJ6FO2dXBr8GMelDADhF5D aF6JmsvMlvLKwSRWqkzSod9ytIBJ9LNQfmKCfkQOmZlIxHrnkLSU5OEOpCFwbEO8AURArEWG6NAerpN4 3xELaOC7UYWFhDWkzLWMmMWNwwkV4RJZmbGDgJRM9LS 3rzTjezKQaxmymzcS7QM0QbX== Disclaimer h6rswISnDLOeuBWaJrUgCWObMIDcx6naAHOkiNJwHnVgJkFbHbCcUphicMTtFCZaSjTge6uxa410dZFc r7mmXMKfSoQ6gZCcQWUfiAPoY996FOHvTJgfq2quq6DyCBThdMItz5E5TMTXknwodGf3oFatG12aw2Z4 BsftH0myWFPrLQWxM0DlNZ1tWHCxYov6TLS6WQR2CHV (test code gSWGmK0DqSP1lTRIanPGhIOl4w6ypvCyeVVFoQZO4z3dkMQdscbAzHF9nvo0mcXc9i7jslhGzWYGuUNR xiUBXLMLvF8EysCwjLc4zhTp6sIceNkmjELC5Ajq9DQ3ekl09ixu4pCvmQNCiooqhEbC1AUvnSPUnsvl uWBl2ENqcQXRvgFP4CPNaiZUcX5UbVHEvKH0sddo1LI = 9844) Z7YKlhTTMnSfX5FZZhaXBnATAxsQayUDsps565ICA3VxBsXB5uU6Ytx9P9uW9jfQAyGIHrgIRySaYpID Eomq9raHGrZYrow5HbWIZ5jhU7yIVikNOyNQAjMS13Bhqxf3VdMxgjPEP4FAVqslXld4Dyx7wsFeRhfl TdL3ruN1InUDUqIRNyYCHyWqDrnfScf1Kkd3KkxOZvv Cd1w8oaHYYvQEHucWkqu5emNXZ0BFHtV1O8kPIur0zzLIxwCTIobRN7djW0ZLXtbUCiG2UnlZ9fXTPsI F5cchm2k4haIFJ1DRxcUTOqFmL2amC1LWGqbAYhRRIceGltGYyed252KFM2ZeJqYINjk3AqF8UpgDyeQ 69rmGcgD64eJEHkhHvtkW1jsKsupF0cMhJgReNvLIcm tLazaMWhqkfuKImajrK0BSijhbfyNZUfHVsaO9zqCvDbXLJllNabNXpqj6SyVKByUBPdOqiranY0IEYQ u10fSIFln2KgCBQdhF1btADhJPuscvXlgWO1LEqmesNxKwQqohIyJNAgtW7wAWLlRD2kKKCksgMwnd6q ihJmEPIxGCVyO5AlnsttrDznjwLfDXYqwg0gznMtNZO 2VTBRRV6SYTCsILJlq88jTCYduWlicA8xkCXbsqKfNEFdw2VjwV2rcHGEKQZtY8ozJN0lKUdfj1NpnXX olPRksDC7PHZkz6DsCoEclrQbuIBboOZpC1FixLjrN2nqQKFmWOYuviIizLDiw3XrKXPjvLA2wCTkWX7 DHbZEs88fBFBmBEBEzaGgJNGwkErkjKQ8osA4yP9wTu GUWnWvbPBduNJlEyzvJZZex009uw8ptqA5KPZeKDFjkjnpb4TjLXPpITEvhZ49KOKeWLPxcz7smihmiL QyzpRoX0Qxajp1iA0aNJIpWAxdLAJmLYLsZbTwpMSxDyBtIdFoqUnpxZmnFTqdBaHlQQHhIRtuY2uuPc FcZnMyMlxwYXJ9 [facility] Allen[facility]raction[facility] Utbhaojri2051-19-04 21:09:04 Test Item Value Reference Range Interpretation Comments Bili Total (test 1.1 mg/dL See_Comment Indocyanine Green (ICG) code = 1974-) may cause fal sely elevated biliru bin results. Total and direct bilirubin must not be measured from s amples containing indo cyanine green. False el evation of total bilirubin can be seen in patient s with IgG concentrations above 28 g/L. [Automated message] The system [employer] generated this result transmitted ref erence range: <=1.2. T he reference range was not used to interpr et this result as normal/abnormal . Bili Direct (test 0.2 mg/dL See_Comment Indocyanin e Green (ICG) code = 1967-) may cause fal sely elevated biliru bin results. Total and direct bilirubin must not be measured from s amples containing indo cyanine green. [Automat ed message] The [employer] stem which generated this result transmitted ref erence range: <=0.3. T he reference range was not used to interpr et this result as normal/abnormal . Bili Indirect (test 0.9 mg/dL 0.0-0.9 code = 1970-) [facility] Rate 2022-01-22 21:09:03 Test Item Value Reference Range Interpretation Comments eGFR-AA (test code 123 See_Comment Normal eG FR: >= 60 = 96583-5) mL/min/1.73 m2N ote: The eGFR is calculated u sing the CKD-EPI equatio n. The eGFR declines with a ge. eGFR <60 mL/min/1.73 m2 is considered as "decreased". This equation should only be used for patients 18 and older. According to e National Kidney [employer] on's Kidney Disease Outcome Quality Initiative (KDO QI) classification and 2012 Kidney Disease Improving Global Outcomes (KDIGO) Clinical Practi ce Guideline, the stage of CK D should be categorized bas ed on estimated GFR. Stage Description GFR mL/min/1.73 m21 Normal or h igh GFR >=902 Mildly decrease d GFR 60-893a Mildly to moder ately decreased GFR 4 5-593b Moderately to s everely decreased GFR 3 0-444 Severely decreased GFR 1 5-295 Kidney failure <15 [Au tomated message] The sy stem which generated this result transmitted ref erence range: >=60 mL/min/1.7 3 sq. m. The reference range was not used to interpret th is result as normal/abnormal . eGFR-TIMOTHY (test code 106 See_Comment Normal e GFR: >= 60 = 61136-5) mL/min/1.73 m2N ote: The eGFR is calculated u sing the CKD-EPI equatio n. The eGFR declines with a ge. eGFR <60 mL/min/1.73 m2 is considered as "decreased". This equation should only be used for patients 18 and older. According to th e National Kidney Foundati on's Kidney Disease Outcome Quality Initiative (KDO QI) classification and 2012 Kidney Disease Improving Global Outcomes (KDIGO) Clinical Practi ce Guideline, the stage of CK D should be categorized bas ed on estimated GFR. Stage Description GFR mL/min/1.73 m21 Normal or h igh GFR >=902 Mildly decrease d GFR 60-893a Mildly to moder ately decreased GFR 4 5-593b Moderately to s everely decreased GFR 3 0-444 Severely decreased GFR 15-295 Kidney failure <15 [Au tomated message] The sy stem which generated this result transmitted ref erence range: >=60 mL/min/1.7 3 sq. m. The reference range was not used to interpret th is result as normal/abnormal . [facility] Allen[facility] Qqbihjj9194-92-14 21:09:02 Test Item Value Reference Range Interpretation Comments Total Protein (test code = 2885-2) 7.3 g/dL 6.4-8.3 [facility] AllenMagnesium [id number] 21:09:01 Test Item Value Reference Range Interpretation Comments Magnesium (test code = 28212-9) 2.2 mg/dL 1.6-2.6 [facility] AllenAlkaline Cstvnjswlir9523-23-71 21:09:00 Test Item Value Reference Range Interpretation Comments Alk Phos (test code = 6768-6) 59 U/L 35-104 [facility] AllenALT2022-09-12 21:08:59 Test Item Value Reference Range Interpretation Comments ALT (test code = 14 U/L See_Comment [Automated message] The 1741-10) system which ge nerated this result transmit jerry reference range : <=33. The reference range was not used to interpr et this result as nile l/abnormal. [facility].Serum Ufgvvrblsr0057-17-12 21:08:57 Test Item Value Reference Range Interpretation Comments Creatinine (test code = 2160-0) 0.70 mg/dL 0.51-0.95 [facility] AllenPhosphorus Yljos2889-29-82 21:08:56 Test Item Value Reference Range Interpretation Comments Phosphorus (test code = 2777-1) 3.0 mg/dL 2.5-4.5 [facility] AllenBUN2022-09-12 21:08:55 Test Item Value Reference Range Interpretation Comments BUN (test code = 3094-0) 6 mg/dL 6-23 [facility] AllenCalcium Uatrl2964-80-23 21:08:54 Test Item Value Reference Range Interpretation Comments Calcium Lvl (test code = 65048-2) 9.3 mg/dL 8.4-10.2 [facility] AllenAlbumin Jqblo1418-16-73 21:08:53 Test Item Value Reference Range Interpretation Comments Albumin Lvl (test code 4.7 See_Comment [Aut omated message] The = 4560) system which ge nerated this result tra nsmitted reference range : 3.5 - 5.2 gm/dL. The refe rence range was not used to interpret this result as normal/abnormal . [facility] AllenAspartate Aminotransferase 2022-01-22 21:08:52 Test Item Value Reference Range Interpretation Comments AST (test code = 16 U/L See_Comment [Automated message] The 1919-12) system which ge nerated this result transmit jerry reference range : <=32. The reference range was not used to interpr et this result as nile l/abnormal. [facility] AllenCEA2022-09-12 21:08:51 Test Item Value Reference Range Interpretation Comments CEA (test 2.7 ng/mL See_Comment Reference Range s:Smoker: 0.0 - code = 5.5Non-Smoker: 0.0 - 3.8This 2038-10) test is measure d by electrochemilum inescence immunoassay on Deborah Qamar immunoassay miri lyzers. Results obtained in dif ferent methods are not interch angeable. [Automated mess age] The system which generated this result transmitted ref erence range: <=3.8. The refe rence range was not used to int erpret this result as nile l/abnormal. [facility] AllenElectrolyte Oybfz4501-68-18 21:08:50 Test Item Value Reference Range Interpretation Comments Sodium Lvl (test code = 136 See_Comment [Au tomated message] The 2950-06) system which ge nerated this result tra nsmitted reference range : 136 - 145 mEq/L. The reference range was not u sed to interpret this result as normal/abnormal . Potassium Lvl (test 3.7 See_Comment [Automa jerry message] The code = 2823-3) system which generated this result tra nsmitted reference range : 3.5 - 5.1 mEq/L. The reference range was not u sed to interpret this result as normal/abnormal . Chloride (test code = 100 See_Comment [Auto mated message] The ) system which ge nerated this result tra nsmitted reference range : 98 - 107 mEq/L. The refe rence range was not u sed to interpret this result as normal/abnormal . CO2 (test code = 25 See_Comment [Automated message] The 2028-01) system which ge nerated this result tra nsmitted reference range : 22 - 29 mEq/L. The refe rence range was not u sed to interpret this result as normal/abnormal . Anion Gap (test code = 11 See_Comment [Aut omated message] The 56762-1) system which ge nerated this result tra nsmitted reference range : 4 - 14 mEq/L. The refe rence range was not u sed to interpret this result as normal/abnormal . [facility] AllenGlucose [id number] 21:08:48 Test Item Value Reference Range Interpretation Comments Glucose Level (test 82 mg/dL 70-99 Effectiv e 12/07/15, the code = 2345-7) glucose refer ence intervals have been updated based o n [place] [employer] luis armando delines (Standards of M edical Care in Diabete s 2016. Diabetes Care 2 016; 39: S13-S22).Fastin g blood glucose:Normal: 70-99 mg/dLImpaired f asting glucose (increa sed risk for diabetes or pre-diabetes): 100-125 mg/dLDiabetes m ellitus: >/=126 mg/dL Ra ndom blood glucose:N ormal: 70-199 mg/dLNot e: Random glucose >100 mg /dL is associated with increased risk for diabetes [facility] AllenLipase Wzpav3842-35-19 21:00:59 Test Item Value Reference Range Interpretation Comments Lipase Lvl (test code = 3040-3) 23 U/L 13-60 [facility] AllenAmylase Ynkrj1004-96-63 21:00:58 Test Item Value Reference Range Interpretation Comments Amylase Lvl (test code = 1798-8) 53 U/L 28-100 [facility] AllenDifferential2022-09-12 20:37:07 Test Item Value Reference Range Interpretation Comments Neutrophil % (test code 53.6 % 42.0-66.0 = 770-8) Lymphocyte % (test code 35.8 % 24.0-44.0 = 736-9) Monocyte % (test code = 6.3 % 2.0-7.0 5905-5) Eosinophil % (test code 3.3 % 1.0-4.0 = 713-8) Basophil % (test code = 0.6 % 0.0-1.0 706-2) IGRE % (test code = 0.4 % 0.0-0.4 IGRE % c ount includes 10866-9) Metamyelocytes, Myelocytes, and Promyelocytes. Neutrophil Abs (test 4.34 K/uL 1.70-7.30 code = 751-8) Lymphocyte Abs (test 2.90 K/uL 1.00-4.80 code = 731-0) Monocyte Abs (test code 0.51 K/uL 0.08-0.70 = 742-7) Eosinophil Abs (test 0.27 K/uL 0.04-0.40 code = 711-2) Basophil Abs (test code 0.05 K/uL 0.00-0.10 = 704-7) IG Abs (test code = 0.03 K/uL 0.00-0.04 64129-3) [facility] [place].[id number] 20:36:54 Test Item Value Reference Range Interpretation Comments WBC (test code = 8.1 K/uL 4.0-11.0 6690-2) RBC (test code = 789-8) 4.36 See_Comment [Au tomated message] The system [employer] generated this result transmitted ref erence range: 4.00 - 5 .50 M/uL. The refer ence range was not u sed to interpret this result as normal/abnor mal. Hgb (test code = 718-7) 14.2 See_Comment [Au tomated message] The system [employer] generated this result transmitted ref erence range: 12.0 - 1 6.0 gm/dL. The refe rence range was not u sed to interpret this result as normal/abnor mal. Hct (test code = 42.2 % 37.0-47.0 4544-3) MCV (test code = 787-2) 97 fL 82-98 MCH (test code = 785-6) 32.6 pg 27.0-31.0 H MCHC (test code = 33.6 See_Comment [Automate d message] 786-4) The system [employer] generated this result transmitted ref erence range: 31.0 - 3 6.0 gm/dL. The refe rence range was not u sed to interpret this result as normal/abnor mal. RDW-SD (test code = 44.6 fL 35.1-46.3 58696-9) RDW-CV (test code = 12.5 % 12.0-15.5 788-0) Platelet count (test 374 K/uL 140-440 code = 777-3) MPV (test code = 9.7 fL 4.0-10.4 06323-6) INRBC (test code = 0.0 % See_Comment The INRBC (instrument 83935-2) NRBC) value ref lects the enumeration of nucleated red b lood cells contained in a 200uL sampleof whole blood analyzed by the instrument. Thi s value maydiffer from the NRBC value repo rted in a manual differential,wh ich is based on a 100 cell differential. [Automated mess age] The system [facility] generated this result transmitted ref erence range: <=0.0. Maya huizar reference range was not used to int erpret this result as normal/abnormal . Lab Interpretation Abnormal (test code = 08017-5) [facility]- Asymptomatic [id number] 21:34:45 Test Item Value Reference Range Interpretation Comments COVID19 (SARS Not Detected Not Detected CoV-2) Result (test code = __This test is a 22539-4) qualitative reverse-transcr iptase polymerase sowmya n reaction (RT-PC R) developed for maya huizar Deborah QAMAR 680 0 system and inte nded for qualitative detection of SA RS CoV-2 RNA in nasopharyngeal and oropharyngeal s wab specimens colle cted from any indivi duals, including those suspected of CO VID-19 by their health care provider, and t hose without symptom s or other reasons t o suspect COVID-1 9. A fact sheet for patients provid ed by the manufacture r ([employer]) c an be reviewed at:https://www. fda.gov /media/416534/d ownload . A fact sheet for Health Care pro viders is provided by the video tape editor ([employer]) and can be reviewed at: https://www.fda .gov/me kaylee/927204/down load Results must be interpreted wit hin the context of all relevant clinic al and laboratory find ings and should not form the sole basis for a diagnosis or tr eatment decision. Posit diana results do not rule out bacterial infection or co-infection wi th other viruses. Negative result s do not rule out SARS-CoV-2 and must be combined with c linical observations, p atient history, and/or epidemiological information. "Presumptive Po sitive" results are due to partial amplifi cation of SARS-CoV-2 t argets and indicates l ow amounts of viru s present in the specimen at or near the limit of detection. Rega rdless, individuals wit h "Presumptive Po sitive" results should be managed per institutional guidelines as individuals pos itive for SARS-CoV-2 virus, including use o f appropriate inf ection control protoco ls. Internal contro ls are included to ass ess for possible amplif ication inhibitors. If inhibition is detected, testi ng is repeated and if inhibition is confirmed the s pecimen is resulted as "Invalid". When an "Invalid" resul t occurs, it is recommended to wait 3 days before sub mitting a new specimen for testing if clin ically indicated. This assay has been approv ed by the FDA for use only under Emergency Use Authorization ( EUA) in laboratories th at have been CLIA-certi fied to perform moderate-comple xity and high-comple xity tests. The perf ormance characteristics of this assay were verified by the Microbiology Laboratory at [facility] [place], CLIA Accreditation # : [id number] and CAP Accreditation # : [id number]. COVID19 SARS MAINTENANCE REPAIRER Swab Source (test code = 91315) COVID19 SARS Post-Travel Indication (test Testing code = 18399) [facility] [place]
[2022-01-23 16:43] LABS: Urine Blood Trace-intact (Negative); Urine Glucose Negative (Negative); Urine Protein Negative (Negative)
[2022-01-23 16:44] LABS: Absolute Lymphocytes (CBC) 1.8 K/uL (0.7-4.9); Hematocrit 44.5 % (36.0-45.0); Lymphocytes % 23.2 % (15.3-44.8); MPV 7.7 fL (7.6-11.3); RBC Red Blood Cell Count 4.64 M/uL (3.86-4.86)
[2022-01-23] MEDS ORDERED: DICYCLOMINE HCL 20 MG/2 ML AMP IM ONE (16:49)
[2022-01-23] MEDS ORDERED: ONDANSETRON 4 MG/2 ML VIAL ONE (16:49)
[2022-01-23] MEDS ORDERED: NA CHLORIDE 0.9% 1,000 ML ONE (16:50)
[2022-01-23 17:01] LABS: Bilirubin Total 0.9 mg/dL (0.2-1.0); Potassium 3.9 mmol/L (3.5-5.1); Protein, Total 7.8 g/dL (6.4-8.2)
[2022-01-23 17:07] LABS: Urine Bacteria <20 /HPF (<20); Urine Mucus Slight /HPF (None Seen)
--- NOTE | 2022-01-23 18:10 | RAD REPORT ---
EXAM DESCRIPTION: CTAbdomen Pelvis W Contrast - 01/23/2022 6:00 pm CLINICAL HISTORY: Abdominal pain. left side abdomen pain COMPARISON: No comparisons TECHNIQUE: Biphasic CT imaging of the abdomen and pelvis was performed with 100 ml non-ionic IV cont rast. All CT scans are performed using dose optimization technique as appropriate and may include automated exposure control or mA/KV adjustment according to patient size. FINDINGS: The lung bases are clear.Cholecystectomy. The liver, spleen, pancreas, adrenal glands and right kidney are within normal limits. 10 mm oblong s tone is seen in the left renal pelvis. No bowel obstruction, free air, free fluid or abscess. Postsurgical changes right colon. No evidenc e of significant lymphadenopathy. Small amount of air is present in the urinary bladder. No suspicious bony findings. IMPRESSION: 10 mm oblong stone in the left renal pelvis is present with minimal hydronephrosis. Urinary bladder air is present with tiny air bubble also seen in left renal pelvis which could indica te urinary tract infection.
[2022-01-23] MEDS ORDERED: levoFLOXacin 250 MG TAB ONE (18:52)
[2022-01-23] MEDS ORDERED: FENTANYL CITR 100 MCG/2 ML ONE (18:52)
[2022-01-23] MEDS ORDERED: CEFTRIAXONE 1000 MG/VIAL ONE (18:53)
[2022-01-23] MEDS ORDERED: NA CHLORIDE 0.9% 100 ML ONE (18:53)
--- NOTE | 2022-01-23 18:58 | EDPHYS ---
Physician Documentation [facility] Name: Naya Gaona Age: 41 yrs Sex: Female : 1980 Arrival Date: 01/23/2022 Time: 13:46 Bed 3 Private MD: Bob Enrique HPI: 01/23 15:45 This 41 yrs old Female presents to ER via Ambulatory with complaints of cp Abdominal Pain, Back Pain. 15:45 The patient presents with abdominal pain left mid abdomen. cp 15:45 Onset: The symptoms/episode began/occurred for over 1 week. cp 15:45 The symptoms radiate to left back. Associated signs and symptoms: Pertinent positives: cp diarrhea, nausea, Pertinent negatives: constipation, fever, vaginal discharge, active vomiting. Patient reports having colonoscopy procedure performed at [facility] yesterday. History of Colon CA with removal of part of colon in the past. 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 - Social history:: Smoking status: Reported history of juuling and/or vaping. ROS: 15:50 Constitutional: Negative for body aches, chills, fever, poor PO intake. cp 15:50 Eyes: Negative for injury, pain, redness, and discharge. cp 15:50 ENT: Negative for drainage from ear(s), ear pain, sore throat, difficulty swallowing, difficulty handling secretions. 15:50 Cardiovascular: Negative for chest pain, edema, palpitations. 15:50 Respiratory: Negative for cough, shortness of breath, wheezing. 15:50 Abdomen/GI: Positive for abdominal pain, nausea, diarrhea, Negative for constipation, active vomiting. 15:50 Back: Positive for radiated pain. 15:50 : Negative for urinary symptoms, vaginal bleeding, vaginal discharge. 15:50 Neuro: Negative for altered mental status, headache, weakness. 15:50 All other systems are negative. Exam: 15:55 Constitutional: The patient appears in no acute distress, alert, awake, cp non-diaphoretic, non-toxic, well developed, well nourished, uncomfortable. 15:55 Head/Face: Normocephalic, atraumatic. cp 15:55 Eyes: Periorbital structures: appear normal, Conjunctiva: normal, no exudate, no injection, Sclera: no appreciated abnormality, Lids and lashes: appear normal, bilaterally. 15:55 ENT: External ear(s): are unremarkable, Nose: is normal, Mouth: Lips: moist, Oral mucosa: pink and intact, moist, Posterior pharynx: Airway: no evidence of obstruction, patent. 15:55 Chest/axilla: Inspection: normal, Palpation: is normal, no crepitus, no tenderness. 15:55 Cardiovascular: Rate: tachycardic, Rhythm: regular. 15:55 Respiratory: the patient does not display signs of respiratory distress, Respirations: normal, no use of accessory muscles, no retractions, labored breathing, is not present, Breath sounds: are clear throughout, no decreased breath sounds, no stridor, no wheezing. 15:55 Abdomen/GI: Inspection: abdomen appears normal, Bowel sounds: active, all quadrants, Palpation: soft, in all quadrants, moderate abdominal tenderness, in the mid left abdomen, rebound tenderness, is not appreciated, voluntary guarding, is elicited in the mid left abdomen. 15:55 Back: CVA tenderness, is absent. 15:55 Skin: no rash present. Vital Signs: 15:31 BP 120 / 79; Pulse 100; Resp 20; Temp 98.0(TE); Pulse Ox 100% on R/A; Weight 64.86 kg bm7 (R); Height 5 ft. 6 in. (167.64 cm); Pain 7/10; 16:52 BP 123 / 83; Pulse 80; Resp 16; Pulse Ox 100% on R/A; vg1 17:50 BP 120 / 87; Pulse 71; Pulse Ox 99% on R/A; tp1 18:50 BP 119 / 88; Pulse 82; Resp 16; Pulse Ox 100% on R/A; tp1 19:24 BP 118 / 79; Pulse 75; Resp 16 S; Pulse Ox 100% on R/A; Pain 0/10; aa9 15:31 Body Mass Index 23.08 (64.86 kg, 167.64 cm) bm7 MDM: 16:34 Patient medically screened. 18:58 Data reviewed: vital signs, nurses notes, lab test result(s), radiologic studies, CT cp scan, I have discussed the patient's presentation/case with the attending Emergency Department Physician; and as a result, I will discharge patient. 18:58 Counseling: I had a detailed discussion with the patient and/or guardian regarding: the cp historical points, exam findings, and any diagnostic results supporting the discharge/admit diagnosis, lab results, radiology results, the need for outpatient follow up, a urologist, to return to the emergency department if symptoms worsen or persist or if there are any questions or concerns that arise at home. Response to treatment: the patient's symptoms have markedly improved after treatment, and as a result, I will discharge patient. Special discussion: Based on the patient's Hx, exam, and Dx evaluation, there is no indication for emergent surgery or inpatient Tx. It is understood by the patient/guardian that if the Sx's persist or worsen they need to return immediately for re-evaluation. 01/23 15:36 Order name: CBC with Diff; Complete Time: 18:17 01/23 18:55 Interpretation: Reviewed. 01/23 15:36 Order name: CMP; Complete Time: 18:17 cp 01/23 18:17 Interpretation: Normal except: GLUC 114; GFR 88; AST 10; GLOB 3.8. 01/23 15:36 Order name: Lipase; Complete Time: 18:17 01/23 15:36 Order name: Urine Microscopic Only; Complete Time: 18:17 01/23 18:18 Interpretation: Normal except: UWBC >50; URBC 5-10. 01/23 16:43 Order name: Urine Dipstick-Ancillary; Complete Time: 18:17 EDMS 01/23 18:18 Interpretation: Normal except: UBLD Trace-intact; UNIT Positive; UESTR 2+. cp 01/23 16:45 Order name: Urine --Ancillary (enter results) bd 01/23 16:29 Order name: CT Abd/Pelvis - IV Contrast Only; Complete Time: 18:17 cp 01/23 17:13 Order name: Urine Culture EDMS 01/23 15:36 Order name: IV Saline Lock; Complete Time: 16:33 cp 01/23 15:36 Order name: Labs collected and sent; Complete Time: 16:33 cp 01/23 15:36 Order name: Urine Dipstick-Ancillary (obtain specimen); Complete Time: 16:35 cp 01/23 15:36 Order name: Urine Test (obtain specimen); Complete Time: 16:35 cp Administered Medications: 16:44 Drug: NS 0.9% 1000 ml Route: IV; Rate: 1 bolus; Site: right antecubital; vg1 19:24 Follow up: Response: No adverse reaction; IV Status: Completed infusion; IV Intake: aa9 1000ml 16:45 Drug: Zofran (Ondansetron) 4 mg Route: IVP; Site: right antecubital; vg1 19:24 Follow up: Response: No adverse reaction aa9 16:48 Drug: Bentyl (dicyclomine) 20 mg Route: IM; Site: right gluteus; vg1 19:24 Follow up: Response: No adverse reaction aa9 18:46 Drug: fentaNYL (PF) 25 mcg Route: IVP; Site: right antecubital; tp1 19:23 Follow up: Response: No adverse reaction; RASS: Alert and Calm (0) aa9 18:49 Drug: Rocephin (cefTRIAXone) 1 grams Route: IV; Rate: calculated rate; Site: right tp1 antecubital; 19:23 Follow up: Response: No adverse reaction; IV Status: Completed infusion; IV Intake: aa9 100ml 18:52 Drug: LevaQUIN (levofloxacin) 500 mg Route: PO; tp1 19:23 Follow up: Response: No adverse reaction aa9 Disposition Summary: 01/23/22 18:58 Discharge Ordered Location: Home cp Condition: Stable cp Diagnosis - Calculus of kidney - left cp - UTI/ Urinary tract infection, site not specified cp - Abdominal pain, unspecified cp Followup: cp - With: Brody Mcnally MD - When: 2 - 3 days - Reason: left renal pelvis stone Discharge Instructions: - Discharge Summary Sheet cp - Abdominal Pain, Adult cp - Kidney Stones cp - Urinary Tract Infection, Adult cp Forms: - Medication Reconciliation Form cp - Thank You Letter cp - Antibiotic Education cp - Prescription Opioid Use cp - Work release form aa9 Prescriptions: - levofloxacin 500 mg Oral tablet - take 1 tablet by ORAL route once daily for 8-10 days continue taking evening of cp 01-24-2022; 9 tablet; Refills: 0, Product Selection Permitted - Zofran 4 mg Oral Tablet - take 1 tablet by ORAL route every 12 hours As needed; 20 tablet; Refills: 0, cp Product Selection Permitted - Metronidazole 500 mg Oral Tablet - take 1 tablet by ORAL route every 8 hours; 30 tablet; Refills: 0, Product cp Selection Permitted - Tylenol-Codeine #3 300 mg-30 mg Oral - take 2 tablet by ORAL route every 8 hours; 12 tablet; Refills: 0, Product cp Selection Permitted Signatures: Dispatcher [employer] EDBob Montes PA PA Michelle Dalton RN RN vg1 Christin Abdi RN RN bm7 Shanna Crowell, SAMMY RN tp1 Sheri Arroyo RN aa9
--- NOTE | 2022-01-23 18:58 | ER ---
Nurse's Notes [facility] Name: Naya Gaona Age: 41 yrs Sex: Female : 1980 Arrival Date: 01/23/2022 Time: 13:46 Bed 3 Private MD: Diagnosis: Calculus of kidney-left;UTI/ Urinary tract infection, site not specified;Abdominal pain, unspecified Presentation: 01/23 15:31 Chief complaint: Patient states: I am having pain in my lower abdomen going into my bm7 back. I went to urgent care yesterday and they told me to come here. I have an appointment with Dr. Hightower tomorrow but I cant take the pain. Coronavirus screen: At this time, the client does not indicate any symptoms associated with coronavirus-19. Ebola Screen: No symptoms or risks identified at this time. Initial Sepsis Screen: Does the patient meet any 2 criteria? No. Patient's initial sepsis screen is negative. Does the patient have a suspected source of infection? No. Patient's initial sepsis screen is negative. Risk Assessment: Do you want to hurt yourself or someone else? Patient reports no desire to harm self or others. Onset of symptoms is unknown. 15:31 Method Of Arrival: Ambulatory bm7 15:31 Acuity: TREVOR 3 bm7 Triage Assessment: 15:34 General: Appears in no apparent distress. uncomfortable, well groomed, well developed, bm7 Behavior is cooperative, appropriate for age, anxious. Pain: Complains of pain in left lower quadrant Pain radiates to back. EENT: No deficits noted. No signs and/or symptoms were reported regarding the EENT system. Neuro: No deficits noted. Cardiovascular: No deficits noted. Respiratory: No deficits noted. GI: Abdomen is round non-distended, Abd is soft X 4 quads Abdomen is tender to palpation in left upper quadrant and left lower quadrant Patient currently denies nausea, vomiting. : No deficits noted. No signs and/or symptoms were reported regarding the genitourinary system. Derm: No deficits noted. No signs and/or symptoms reported regarding the dermatologic system. Musculoskeletal: No deficits noted. No signs and/or symptoms reported regarding the musculoskeletal system. 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 - Social history:: Smoking status: Reported history of juuling and/or vaping. Screenin:18 Abuse screen: Denies threats or abuse. Denies injuries from another. Nutritional tp1 screening: No deficits noted. Tuberculosis screening: No symptoms or risk factors identified. Fall Risk No secondary diagnosis (0 pts). IV access (20 points). Ambulatory Aid- None/Bed Rest/Nurse Assist (0 pts). Gait- Normal/Bed Rest/Wheelchair (0 pts) Mental Status- Oriented to own ability (0 pts). Assessment: 16:50 General: Appears in no apparent distress. comfortable, Behavior is calm, cooperative. tp1 Pain: Complains of pain in left upper quadrant and left lower quadrant Pain radiates to left low back and left mid back Pain currently is 8 out of 10 on a pain scale. Quality of pain is described as crampy. Neuro: Level of Consciousness is awake, alert, obeys commands, Oriented to person, place, time, situation. Cardiovascular: Patient's skin is warm and dry. Respiratory: Airway is patent Respiratory effort is even, unlabored. GI: Abdomen is flat, non-distended, Abd is soft Abdomen is tender to palpation in left upper quadrant and left lower quadrant Reports nausea. : No signs and/or symptoms were reported regarding the genitourinary system. EENT: No signs and/or symptoms were reported regarding the EENT system. Derm: Skin is pink, warm \T\ dry. Musculoskeletal: Circulation, motion, and sensation intact. 17:45 Reassessment: escorted to CT with [employer] via wheelchair. tp1 18:05 Reassessment: returned from CT. tp1 18:09 Reassessment: Patient appears in no apparent distress at this time. No changes from tp1 previously documented assessment. Patient is alert, oriented x 3, equal unlabored respirations, skin warm/dry/pink. states pain increases with ambulation. rates pain 3/10 when still, 7/10 when ambulating. 19:23 GI: Bowel sounds present X 4 quads. aa9 Vital Signs: 15:31 BP 120 / 79; Pulse 100; Resp 20; Temp 98.0(TE); Pulse Ox 100% on R/A; Weight 64.86 kg bm7 (R); Height 5 ft. 6 in. (167.64 cm); Pain 7/10; 16:52 BP 123 / 83; Pulse 80; Resp 16; Pulse Ox 100% on R/A; vg1 17:50 BP 120 / 87; Pulse 71; Pulse Ox 99% on R/A; tp1 18:50 BP 119 / 88; Pulse 82; Resp 16; Pulse Ox 100% on R/A; tp1 19:24 BP 118 / 79; Pulse 75; Resp 16 S; Pulse Ox 100% on R/A; Pain 0/10; aa9 15:31 Body Mass Index 23.08 (64.86 kg, 167.64 cm) bm7 ED Course: 13:46 Patient arrived in ED. rg4 15:12 Bob Mejia PA is PHCP. cp 15:12 [facility] is Attending Physician. cp 15:34 Triage completed. bm7 15:34 Arm band placed on left wrist. bm7 16:32 Shanna Crowell, SAMMY is Primary Nurse. tp1 16:34 Initial lab(s) drawn, by ga, sent to lab. Inserted saline lock: 20 gauge in right jw7 antecubital area, using aseptic technique. Blood collected. 16:34 CBC with Diff Sent. jw7 16:34 CMP Sent. jw7 16:34 Lipase Sent. jw7 16:50 Patient has correct armband on for positive identification. Bed in low position. Call tp1 light in reach. Side rails up X 1. 16:50 Pulse ox on. NIBP on. tp1 18:02 CT Abd/Pelvis - IV Contrast Only In Process Unspecified. EDMS 18:57 Brody Mcnally MD is Referral Physician. cp 19:21 No provider procedures requiring assistance completed. IV discontinued, intact, aa9 bleeding controlled, No redness/swelling at site. Pressure dressing applied. Administered Medications: 16:44 Drug: NS 0.9% 1000 ml Route: IV; Rate: 1 bolus; Site: right antecubital; vg1 19:24 Follow up: Response: No adverse reaction; IV Status: Completed infusion; IV Intake: aa9 1000ml 16:45 Drug: Zofran (Ondansetron) 4 mg Route: IVP; Site: right antecubital; vg1 19:24 Follow up: Response: No adverse reaction aa9 16:48 Drug: Bentyl (dicyclomine) 20 mg Route: IM; Site: right gluteus; vg1 19:24 Follow up: Response: No adverse reaction aa9 18:46 Drug: fentaNYL (PF) 25 mcg Route: IVP; Site: right antecubital; tp1 19:23 Follow up: Response: No adverse reaction; RASS: Alert and Calm (0) aa9 18:49 Drug: Rocephin (cefTRIAXone) 1 grams Route: IV; Rate: calculated rate; Site: right tp1 antecubital; 19:23 Follow up: Response: No adverse reaction; IV Status: Completed infusion; IV Intake: aa9 100ml 18:52 Drug: LevaQUIN (levofloxacin) 500 mg Route: PO; tp1 19:23 Follow up: Response: No adverse reaction aa9 Medication: 19:23 VIS not applicable for this client. aa9 Intake: 19:23 IV: 100ml; Total: 100ml. aa9 19:24 IV: 1000ml; Total: 1100ml. aa9 Outcome: 18:58 Discharge ordered by . cp 19:21 Discharged to home ambulatory. aa9 19:21 Condition: stable 19:21 Discharge instructions given to patient, Instructed on discharge instructions, follow up and referral plans. medication usage, Demonstrated understanding of instructions, follow-up care, medications, Prescriptions given X 4. 19:25 Patient left the ED. aa9 Signatures: Dispatcher [employer] EDMS Bob Mejia PA PA cp Garcia, Rubi rg4 Michelle Graves RN RN vg1 Christin Abdi, SAMMY RN bm7 Shanna Crowell RN RN tp1 Lory Frost7 Sheri Arroyo RN RN aa9 Corrections: (The following items were deleted from the chart) 18:11 16:50 GI: Abdomen is flat, non-distended, Abd is soft Abdomen is tender to palpation in tp1 left upper quadrant and left lower quadrant tp1
[2022-01-24 08:12] VITALS: TEMP 98
[2022-01-24 08:19] VITALS: O2SAT 100
[2022-01-24 08:21] VITALS: BP 118/79
== END 2022-01-23 19:25 | disposition home or self-care (01) ==
LOC: ER 13:43
DX: N20.0 Calculus of kidney (principal); N39.0 Urinary tract infection, site not specified; Z85.038 Personal history of other malignant neoplasm of large intestine; Z88.5 Allergy status to narcotic agent
CPT/HCPCS: 87088; 85025; 87086; 36415; 81025; 83690; 80053; 74177; Q9967; J0500; J3010; J7030; J2405; 81003; 81015; 87077; 87186; 96361; 96365; 96372; 96375; 99284

== ENCOUNTER 2023-01-15 18:12 | Inpatient (IN) | payer BC ==
--- OUTSIDE RECORDS SUMMARY | 2023-01-15 18:17 | XMS REPORT | Clinical Summary ---
:1980 Author Organization [facility] Address [address] [place] [address] Care Team Providers Name Role Phone Prakash Maki MD Primary Care Provider Unavailable Allergies Active Allergy Reactions Severity Noted Date [...] Added automatically from request for angélica martina [id number] Colon cancer 02/04/2018 Overview: Added automatically from request for angélica martina [id number] Mandatory [facility] ICD-10 2020 UPDATE Anxiety 10/18/2017 Mass of colon 10/17/2017 Cancer of ascending colon 10/06/2017 Cancer Staging: Pathologic stage from : Stage I (pT1, pN0, cM0) - Unsigned Overview: Added automatically from request for angélica martina [id number] Mandatory [facility] ICD-10 2020 UPDATE Encounters Date Type Specialty Care Team Description 02/21/2022 Prep for Surgery Gastroenterology, Charmaine Hi Perso nal history of colonic polyp (Primary Dx); 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 ascen 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 Nutrition 02/20/2022 Documentation Gastroenterology, Charmaine Hi, 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 Nutrition 01/22/2022 Hospital Encounter Lab Julianna, Personal history [...] 01/22/2022 Travel 01/19/2022 POEM Appointments Anesthesiology Shanthi, Ghada op labs MD Prakash (Primary Dx) 01/19/2022 Hospital Encounter Lab [place], Gucci, Colonos copy planned; PA Pre procedural laboratory examination 01/19/2022 Anesthesia Event Anesthesiology Jacklyn Scott, RN 01/19/2022 Clinical Support Jared Maki, Suspect ed SEBASTIAN Randall MD (Primary Dx) Alonso Fierro RN 01/19/2022 Refill Gastroenterology, Murguia, Samantha, Colonos copy Hepatology & MA planned (Primar y Nutrition Dx) 01/19/2022 Telephone Endoscopy Agus Gross MA 01/19/2022 Travel 01/19/2022 Orders Only Gastroenterology, Kenebrew, Pre proced ural Hepatology & Dilma, CLIPPER MACHINE OPERATOR laboratory Nutrition examination (Primary Dx) 01/18/2022 Orders Only Endoscopy Gucci Teresa, Colonoscopy PA planned (Primar y Dx) after 01/15/2022 Immunizations Name Administration Dates Next Due Influenza, Quadrivalent 03/26/2016 Influenza, Unspecified 02/14/2018 Surgical History Surgery Date Site/Laterality Comments AK EXPLORATORY LAPAROTOMY 10/18/2017 Abdomen/Midline Proced ure: EXPLORATORY CELIOTOMY CELIOTOMY W/WO BIOPSY SPX (LAPAR OTOMY); Surgeon: Prakash Maki MD; Location: MAIN OR; Service : SURG ONC - COLORECTAL Medical devices from this surgery are in t he Medical Devices section. AK COLECTOMY PRTL W/RMVL 10/18/2017 Abdomen/Midline Procedu re: PARTIAL COLECTOMY, TERMINAL ILEUM & ILEOCOLOS right hemicolectomy; Surgeon: Parkash Reddy MD; Location: MAIN O R; Service: SURG ONC - COLORECTAL Medical devices from this surgery are in t he Medical Devices section. AK COLONOSCOPY FLX DX 08/21/2018 N/A Procedure: DIAGNOSTIC FLEXIBLE W/COLLJ SPEC WHEN PFRMD COLONOSC OPY PROXIMAL TO SPLENIC FLEXURE; Surgeon : Javid Cadet MD; Locat ion: MAIN ENDOSCOPY; Servi ce: GASTROENTEROLOGY AK COLONOSCOPY FLX DX 11/06/2019 N/A Procedure: DIAGNOSTIC FLEXIBLE W/COLLJ SPEC WHEN PFRMD COLONOSC OPY PROXIMAL TO SPLENIC FLEXURE; Surgeon : Javid Cadet MD; Locat ion: MAIN ENDOSCOPY; Servi ce: GASTROENTEROLOGY ; f/up 2 years AK COLONOSCOPY W/BIOPSY 08/25/2020 N/A Procedur e: FLEXIBLE COLONOSCOPY SINGLE/MULTIPLE PROXIMAL TO SPLE JENNA FLEXURE WITH BIOPSY; Surgeon: Javid Cadet MD; Locat ion: MAIN ENDOSCOPY; Servi ce: GASTROENTEROLOGY AK COLONOSCOPY FLX DX 01/22/2022 N/A Procedure: DIAGNOSTIC FLEXIBLE W/COLLJ SPEC WHEN PFRMD COLONOSC OPY PROXIMAL TO SPLENIC FLEXURE; Surgeon : Coby Levine MD; Location: MAIN ENDOSCOPY; Servi ce: GASTROENTEROLOGY Medical History [...] Tobacco Use Types Packs/Day Years Used Date Smoking Tobacco: Former Cigarettes 1 6 Quit : 10/18/2003 Smokeless Tobacco: Never Tobacco Cessation: Counseling Given: No Sex Assigned at Date Recorded Not on file Obstetrics History Last Filed Vital Signs Vital Sign Reading Time Taken Comments Blood Pressure 119/82 01/22/2022 2:00 PM CDT Pulse 65 01/22/2022 2:00 PM CDT Temperature 36 °C (96.8 °F) 01/22/2022 1:48 PM CDT Respiratory Rate 16 01/22/2022 1:50 PM CDT Oxygen Saturation 100% 01/22/2022 2:00 PM CDT Inhaled Oxygen Concentration - - Weight 64.8 kg (142 lb 13.7 oz) 01/22/2022 12:32 PM CDT Height - - Body Mass Index 23.06 09/27/2017 8:43 AM CDT Plan of Treatment Date Type Specialty Care Team Description 08/26/2023 Hospital Encounter Endoscopy Javid Cadet MD 02/21/2025 Hospital Encounter Endoscopy Name Priority Associated Diagnoses Date/Time DIAGNOSTIC FLEXIBLE COLONOSCOPY Personal history of colonic PROXIMAL TO SPLENIC FLEXURE polyp DIAGNOSTIC FLEXIBLE COLONOSCOPY Personal history of colonic PROXIMAL TO SPLENIC FLEXURE polyp Malignant neoplasm of ascending colon Health Maintenance Due Date Last Done Comments COVID-19 Vaccination (#1) 04/30/1979 Medical Devices Implanted Type Area 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 DIAGNOSTIC FLEXIBLE 01/22/2022 1:03 Colon cancer, not COLONOSCOPY PROXIMAL TO PM CDT otherwis e specified SPLENIC FLEXURE Personal history of colonic polyp .GLOMERULAR FILTRATION Routine 01/19/2022 9:56 Colonoscopy goran [...] 9:32 Suspected COVID- 19 Results for this PCR - ASYMPTOMATIC - [facility] AM CDT proc edure are in the results section. after 01/15/2022 Results .Serum Creatinine (01/22/2022 3:08 PM CDT)Only the most recent of2 resultswithin the time period is included. athologist Signature Creatinine 0.70 0.51 - 0.95 [facility] mg/dL [facility] Specimen Anatomical Collection Method Collection Time Receive d Time (Source) Location / / Volume Laterality Blood 01/22/2022 3:08 PM 2 3:33 CDT PM CDT Coby Levine MD LAB BLOOD ORDERABLES Performing Organization Address City/State/ZIP Code Phon e Number [facility] CANCER Unless otherwise noted, [place] [address] [place] all lab tests performed by: Division of Pathology and Laboratory Medicine [address] (ABNORMAL) .CBC (01/22/2022 3:08 PM CDT) athologist Signature WBC 8.1 4.0 - 11.0 [place] MD K/uL [facility] RBC 4.36 4.00 - [place] MD 5.50 M/uL [facility] Hgb 14.2 12.0 - [place] MD 16.0 gm/dL [facility] Hct 42.2 37.0 - [place] MD 47.0 % [facility] MCV 97 82 - 98 fL [facility] MCH 32.6 (H) 27.0 - [place] MD 31.0 pg [facility] MCHC 33.6 31.0 - [place] MD 36.0 gm/dL [facility] RDW-SD 44.6 35.1 - [place] MD 46.3 [facility] RDW-CV 12.5 12.0 - [place] 15.5 % [facility] Platelet count 374 140 - 440 [place] K/uL [facility] MPV 9.7 4.0 - 10.4 [place] [facility] INRBC 0.0 <=0.0 % [facility] Comment: The INRBC (instrument NRBC) value reflec [...] Organization Address City/State/ZIP Code Phon e Number [facility] CANCER Unless otherwise noted, [place] [address] [place] all lab tests performed by: Division of Pathology and Laboratory Medicine [address] [place] [address] Glomerular Filtration Rate (01/22/2022 3:08 PM CDT)Only the most recent of2 resultswithin the time period is included. P athologist Signature eGFR-AA 123 >=60 [place] HENRY mL/min/1.73 [facility] sq. m Comment: Normal eGFR: >= 60 [...] <15 eGFR-TIMOTHY 106 >=60 mL/min/1.73 sq. m [place] MD Yogesh [facility] Comment: Normal eGFR: >= 60 mL/min/1.73 m2 [...] Organization Address City/State/ZIP Code Phon e Number [facility] CANCER Unless otherwise noted, [place] [address] [place] all lab tests performed by: Division of Pathology and Laboratory Medicine [facility] [facility] Fractionated Bilirubin (01/22/2022 3:08 PM CDT) athologist Signature Bili Total 1.1 <=1.2 mg/dL [facility] Comment: Indocyanine Green (ICG) may cause falsel y elevated bilirubin results. Total and direct bilirubin must not be measured from samples containing indocyanine green. False elevation of total bilirubin can b e seen in patients with IgG concentrations above 28 g/L. Bili Direct 0.2 <=0.3 mg/dL [place] [facility] Comment: Indocyanine Green (ICG) may cau se falsely elevated bilirubin results. Total and direct bilirubin must not be measure d from samples containing indocyanine green. Bili Indirect 0.9 0.0 - 0.9 mg/dL [place] MD [facility] Specimen Anatomical Collection Method Collection Time Receive d Time (Source) Location / / Volume Laterality Blood 01/22/2022 3:08 PM 2 3:33 CDT PM CDT Coby Levine MD LAB BLOOD ORDERABLES Performing Organization Address City/State/ZIP Code Phon e Number [facility] Unless otherwise noted, [address] all lab tests performed by: Division of Pathology and Laboratory Medicine [facility] [place] Differential (01/22/2022 3:08 PM CDT) athologist Signature Neutrophil % 53.6 42.0 - 66.0 [facility] Lymphocyte % 35.8 24.0 - 44.0 [facility] Monocyte % 6.3 2.0 - 7.0 % [facility] Eosinophil % 3.3 1.0 - 4.0 % [facility] Basophil % 0.6 0.0 - 1.0 % [facility] IGRE % 0.4 0.0 - 0.4 % [facility] Comment: IGRE % count includes Metamyelo cytes, Myelocytes, and Promyelocytes. Neutrophil Abs 4.34 1.70 - 7.30 K/uL [facility] Lymphocyte Abs 2.90 1.00 - 4.80 K/uL [facility] Monocyte Abs 0.51 0.08 - 0.70 K/uL [place] [facility] Eosinophil Abs 0.27 0.04 - 0.40 K/uL LA [facility] Basophil Abs 0.05 0.00 - 0.10 K/uL [place] [facility] IG Abs 0.03 0.00 - 0.04 K/uL LA [facility] Specimen Anatomical Collection Method Collection Time Receive d Time (Source) Location / / Volume Laterality Blood 01/22/2022 3:08 PM 2 3:26 CDT PM CDT Coby Levine MD LAB BLOOD ORDERABLES Performing Organization Address City/State/ZIP Code Phon e Number [facility] Unless otherwise noted, [address] all lab tests performed by: Division of Pathology and Laboratory Medicine [facility] [place] BUN (01/22/2022 3:08 PM CDT)Only the most recent of2 resultswithin the time period is included. P athologist Signature BUN 6 6 - 23 [facility] mg/dL [facility] Specimen Anatomical Collection Method Collection Time Receive d Time (Source) Location / / Volume Laterality Blood 01/22/2022 3:08 PM 2 3:33 CDT PM CDT Coby Levine MD LAB BLOOD ORDERABLES Performing Organization Address City/[facility] Phon e Number [facility] CANCER Unless otherwise noted, [address] all lab tests performed by: Division of Pathology and Laboratory Medicine [facility]5 [facility] [place] ALT (01/22/2022 3:08 PM CDT) athologist Signature ALT 14 <=33 U/L [facility] Specimen Anatomical Collection Method Collection Time Receive d Time (Source) Location / / Volume Laterality Blood 01/22/2022 3:08 PM 2 3:33 CDT PM CDT Coby Levine MD LAB BLOOD ORDERABLES Performing Organization Address City/[facility] Phon e Number [facility] CANCER Unless otherwise noted, [address] all lab tests performed by: Division of Pathology and Laboratory Medicine [facility]5 [place] Aspartate Aminotransferase (01/22/2022 3:08 PM CDT) athologist Signature AST 16 <=32 U/L [facility] Specimen Anatomical Collection Method Collection Time Receive d Time (Source) Location / / Volume Laterality Blood 01/22/2022 3:08 PM 2 3:33 CDT PM CDT Coby Levine MD LAB BLOOD ORDERABLES Performing Organization Address City/[facility] Phon e Number [facility] CANCER Unless otherwise noted, [address] all lab tests performed by: Division of Pathology and Laboratory Medicine [facility] [place] Total Protein (01/22/2022 3:08 PM CDT) athologist Signature Total Protein 7.3 6.4 - 8.3 [facility] g/dL [facility] Specimen Anatomical Collection Method Collection Time Receive d Time (Source) Location / / Volume Laterality Blood 01/22/2022 3:08 PM 2 3:33 CDT PM CDT Coby Levine MD LAB BLOOD ORDERABLES Performing Organization Address City/[facility]/ZIP [facility] Phon e Number [facility] CANCER Unless otherwise noted, [address] all lab tests performed by: Division of Pathology and Laboratory Medicine [address] [place] Phosphorus Level (01/22/2022 3:08 PM CDT) P athologist Signature Phosphorus 3.0 2.5 - 4.5 [facility] mg/dL [facility] Specimen Anatomical Collection Method Collection Time Receive d Time (Source) Location / / Volume Laterality Blood 01/22/2022 3:08 PM 2 3:33 CDT PM CDT Coby Levine MD LAB BLOOD ORDERABLES Performing Organization Address [facility] Phon e Number [facility] CANCER Unless otherwise noted, [address] all lab tests performed by: Division of Pathology and Laboratory Medicine [address] [place] Alkaline Phosphatase (01/22/2022 3:08 PM CDT) P athologist Signature Alk Phos 59 35 - 104 [facility] U/L [facility] Specimen Anatomical Collection Method Collection Time Receive d Time (Source) Location / / Volume Laterality Blood 01/22/2022 3:08 PM 2 3:33 CDT PM CDT Coby Levine MD LAB BLOOD ORDERABLES Performing Organization Address City/[facility]/ZIP [facility] Phon e Number [facility] CANCER Unless otherwise noted, [address] all lab tests performed by: Division of Pathology and Laboratory Medicine [address] [place] Magnesium Level (01/22/2022 3:08 PM CDT) P athologist Signature Magnesium 2.2 1.6 - 2.6 [facility] mg/dL [facility] Specimen Anatomical Collection Method Collection Time Receive d Time (Source) Location / / Volume Laterality Blood 01/22/2022 3:08 PM 2 3:33 CDT PM CDT Coby Levine MD LAB BLOOD ORDERABLES Performing Organization Address City/[facility]/ZIP [facility] Phon e Number [facility] CANCER Unless otherwise noted, [address] all lab tests performed by: Division of Pathology and Laboratory Medicine [facility] [place] Lipase Level (01/22/2022 3:08 PM CDT) athologist Signature Lipase Lvl 23 13 - 60 U/L [facility] Specimen Anatomical Collection Method Collection Time Receive d Time (Source) Location / / Volume Laterality Blood 01/22/2022 3:08 PM 2 3:33 CDT PM CDT Coby Levine MD LAB BLOOD ORDERABLES Performing Organization Address City/[facility] Phon e Number [facility] Unless otherwise noted, [address] all lab tests performed by: Division of Pathology and Laboratory Medicine [facility]5 [facility] Glucose Level (01/22/2022 3:08 PM CDT) athologist Signature Glucose Level 82 70 - 99 [facility] mg/dL [facility] Comment: Effective 12/07/15, the glucose reference intervals have been updated based on [place] Diabetes Association guidelines (Standards of Medical Care [...] MD LAB BLOOD ORDERABLES Performing Organization Address City/[facility]/ZIP Code Phon e Number [facility] Unless otherwise noted, [address] all lab tests performed by: Division of Pathology and Laboratory Medicine [facility] [place] CEA (01/22/2022 3:08 PM CDT) athologist Signature CEA 2.7 <=3.8 ng/mL [facility] Comment: Reference Ranges: Smoker: 0.0 - 5.5 [...] MD LAB BLOOD ORDERABLES Performing Organization Address City/[facility]/ZIP [facility] Phon e Number [facility]CER Unless otherwise noted, [address] all lab tests performed by: Division of Pathology and Laboratory Medicine [address] [place] Calcium Level (01/22/2022 3:08 PM CDT) athologist Signature Calcium Lvl 9.3 8.4 - 10.2 [facility] mg/dL [facility] Specimen Anatomical Collection Method Collection Time Receive d Time (Source) Location / / Volume Laterality Blood 01/22/2022 3:08 PM 2 3:33 CDT PM CDT Coby Levine MD LAB BLOOD ORDERABLES Performing Organization Address City/[facility] Phon e Number [facility] CANCER Unless otherwise noted, [address] all lab tests performed by: Division of Pathology and Laboratory Medicine [address] [place] Amylase Level (01/22/2022 3:08 PM CDT) athologist Signature Amylase Lvl 53 28 - 100 [facility] U/L [facility] Specimen Anatomical Collection Method Collection Time Receive d Time (Source) Location / / Volume Laterality Blood 01/22/2022 3:08 PM 2 3:33 CDT PM CDT Coby Levine MD LAB BLOOD ORDERABLES Performing Organization Address City/[facility] Phon e Number [facility] CANCER Unless otherwise noted, [address] all lab tests performed by: Division of Pathology and Laboratory Medicine [address] [place] Albumin Level (01/22/2022 3:08 PM CDT) athologist Signature Albumin Lvl 4.7 3.5 - 5.2 [facility] gm/dL [facility] Specimen Anatomical Collection Method Collection Time Receive d Time (Source) Location / / Volume Laterality Blood 01/22/2022 3:08 PM 2 3:33 CDT PM CDT Coby Levine MD LAB BLOOD ORDERABLES Performing Organization Address City/State/ZIP Code Phon e Number [facility] CANCER Unless otherwise noted, [address] all lab tests performed by: Division of Pathology and Laboratory Medicine [address] [place] [address] Electrolyte Panel (01/22/2022 3:08 PM CDT) athologist Signature Sodium Lvl 136 136 - 145 [facility] mEq/L [facility] Potassium Lvl 3.7 3.5 - 5.1 [facility] mEq/L [facility] Chloride 100 98 - 107 [facility] mEq/L [facility] CO2 25 22 - 29 [facility] mEq/L [facility] Anion Gap 11 4 - 14 [facility] mEq/L [facility] Specimen Anatomical Collection Method Collection Time Receive d Time (Source) Location / / Volume Laterality Blood 01/22/2022 3:08 PM 2 3:33 CDT PM CDT Coby Levine MD LAB BLOOD ORDERABLES Performing Organization Address City/[facility]/ZIP Code Phon e Number [facility] CANCER Unless otherwise noted, [address] all lab tests performed by: Division of Pathology and Laboratory Medicine [address] [place] [address] Pathology Biopsy Interpretation (01/22/2022 1:35 PM CDT) Component Value Ref Test Analysis Performed Pathologis t Range Method Time At Signature Submitted Colon cancer, not otherwise specified [C18.9] 01/23/2022 [facility] Clinical Personal history of colonic polyp [Z86.010] 12:24 PM History CDT Diagnosis A. Sigmoid colon polyp, biopsy: 01/24/20 [facility] Electronically Changes suggestive of inflammatory polyp. 12:24 PM signed by Miguelangel No dysplasia or malignancy seen. CDT MD Radha on 01/23/2022 at 12:24 PM Gross A: 01/23/2022 [facility] Description Colon, sigmoid colon polyp: Two cope to red-brown pieces of tissue measuring 0.6 and 1.1 cm, entirely submitted in A1. GM 12:24 PM CDT Disclaimer "Some tests 01/23/2022 [facility] reported here may 12:24 PM have been CDT developed and performance characteristics determined by [place] [facility]. These tests have [...] Organization Address City/State/ZIP Code Phon e Number [facility] [place], [place] [id number] [address] COVID-19 (SARS-CoV-2) PCR-Asymptomatic [facility] (01/19/2022 9:32 AM CDT) [facility] Method Time Signature COVID19 (SARS Not Detected Not Detected [place] CoV-2) [facility] Comment: This test is a qualitative reverse-trans [...] fact sheet for patients provided by the automotive mechanic ( [employer]) can be rev iewed at: https://www.fda.gov/media/754168/downloa d. A fact sheet for Health Care providers is provided by the automotive mechanic ([employer]) and can be reviewed at: https://www.fda.gov/media/692888/download Results must be interpreted within the c [...] were verified by the Microbiology Laboratory at [facility], CLIA Accreditation #: [id number] and CAP Accreditation #: [id number]. COVID19 SARS Source FLORAL ARTIST Swab [place] MD [facility] COVID19 SARS Indication Post-Travel Testing [facility] Specimen (Source) Anatomical Collection Method Collection Time Re ceived Time Location / / Volume Laterality Nasopharyngeal Swab 01/19/2022 9:32 01/19 AM CDT 10:28 AM CDT Filomena Ingram MD MICROBIOLOGY - GENERAL ORDER EUGENIO Performing Organization Address City/State/ZIP Code Phon e Number [facility] CANCER Unless otherwise noted, [place] [address] [place] all lab tests performed by: Division of Pathology and Laboratory Medicine [address] [place] [address] [place] after 01/15/2022 Insurance Payer Benefit Plan / Subscriber ID Effective Dates Phone Addre ss Type Group [employer]UE [employer]BS PPO POS [id number] 2019-Present [address] PPO BLUE [facility] OUT OF STATE [place], [place] GENERIC [address] Advance Directives Code Status Date Activated Date Inactivated Comments Full Code 10/18/2017 4:01 PM 10/22/2017 4:09 PM Care Teams Senior Professional Services Consultant Relationship Specialty Start Date End Date Prakash Maki MD PCP - General Colorectal Surgery 8
--- OUTSIDE RECORDS SUMMARY | 2023-01-15 18:21 | XMS REPORT | Continuity of Care Document ---
:1980 Author Organization [facility] t Address [address] [facility] [address] [place] [address] Care Team Providers Name Role Phone PCP, PATIENT DOES NOT HAVE A Primary Care Physician UnavailCAROLE Adrian Attending Clinician Unavailable TORRES ATKINS Attending Clinician Unavailable ANGELIC SCHERER Attending Clinician Unavailable Taina Monge MA Attending Clinician Unavailable Angelic Scherer MD Attending Clinician Charmaine Hi APRN Attending Clinician Lizbet Hammond MD Attending Clinician LIZBET HAMMOND Attending Clinician Unavailable Noe Villagomez MD Attending Clinician Geraldo Marvin MD Attending Clinician Gucci Frey Attending Clinician Prakash Perkins MD Attending Clinician [phone] Alonso Fierro RN Attending Clinician Unavailable Jacklyn Scott RN Attending Clinician Unavailable Samantha Murguia MA Attending Clinician Unavailable Agus Gross MA Attending Clinician [phone] Dilma Grier APN Attending Clinician Shila CHRISTIANSON, Shiela T. Attending Clinician Unavailable PRAKASH PERKINS Attending Clinician Unavailable WALT TIMMONS Attending Clinician Unavailable [facility] Attending Clinician Unavailable Unknown, Attending Attending Clinician Unavailable UNKNOWN, ATTENDING Attending Clinician Unavailable GAVIN SUAREZ Attending Clinician Unavailable CHRIS CARDOZA Attending Clinician Unavailable TAYO HERNANDEZ Attending Clinician Unavailable CAROLE MINAYA Admitting Clinician Unavailable LIZBET HAMMOND Admitting Clinician Unavailable Payers Payer Name Policy Type Policy Number Effective Date Expiration Date Lupe an [employer] PPO POS OUT [id number] 2019 00:00:00 OF STATE GENERIC Problems Condition Condition Condition Status Onset Resolution Last Treating Co mments Source Name Details Category Date Date Treatment Clinician Date Personal Personal Disease Active Overview: Un leila history of history of 6- Formattin ity of colonic colonic 00:00: g of this [place] polyp polyp 00 note might be Anderso different n from the Cancer original. Center Added automatic ally from request for surgery [id number] Colon Colon Disease Active Overview: Univer s cancer cancer - Formattin ity of 00:00: g of this [place] 00 note might be Anderso different n from the Cancer original. 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 MTHFR MTHFR Disease Active Univers mutation mutation ity of [facility] No known No known Disease Metho di active active st problems problems Hospit a l Allergies, Adverse Reactions, Alerts Allergy Allergy Status Severity Reaction(s) Onset Inactive Treating Comm ents Source Name Type Date Date Clinician OXYCODON DRUG Active Dizziness Unive rs E INGREDI 02-07 ity of 00:00: [place] 00 [facility] Oxycodon Propensi Active Nausea Univer s e ty to and/or 02-07 ity of adverse Vomiting 00:00: [place] reaction [address] [place] [address] TRAZODON DRUG Active Nausea 2018-0 MD E [...] n 00 Oxycodon Propensi Active Other (See Nausea, M ethodi e ty to Comments) 4-24 vomiting, st adverse 00:00: dizzy Hospita reaction 00 l s to drug Trazodon Propensi Active GI Method i e ty to Intolerance 4-24 st adverse 00:00: Hospita reaction 00 l s to drug Oxycodon Propensi Active GI Nausea, Unive rs e ty to Intolerance 4-24 vomiting, it y of adverse 00:00: dizzy [place] reaction 00 MD lupe bañuelos [facility] Center Trazodon Propensi Active GI Univer s e ty to Intolerance -24 ity o f adverse 00:00: [place] reaction 00 MD lupe bañuelos [facility] NO KNOWN Drug Active Univers ALLERGIE Class ity of [facility] Family History Family Member Diagnosis Comments Start Date Stop Date Source Natural mother Hypertension [facility] Natural mother Diabetes [facility] Paternal Cancer [facility] Paternal -Gastrointestinal Univers ity of grandfather (Esophagus, Liver, [place] MD Lopez Bile Duct, Stomach, Cance r Center Pancreas, Colon, Rectum, Anus Natural sister [facility] Maternal aunt Heart attack [facility] Maternal Heart attack [facility] Maternal Stroke [facility] Cousin -Gastrointestinal Univers ity of (Esophagus, Liver, [place] MD Lopez Bile Duct, Stomach, Cance r Center Pancreas, Colon, Rectum, Anus Natural father Colon cancer Universi ty of [place] MD Sanchez son Cancer Center Paternal Cervical cancer Universit y of grandmother [place] MD Barr [facility] Social History Social Habit Start Date Stop Date Quantity Comments Source History SDOH University o f Alcohol Frequency [place] M edical Branch History SDOH University o f Alcohol Std Drinks [place] [facility] [place] History SDOH University o f Alcohol Binge [place] Medic al Branch Gender identity [facility] Sexual orientation [facility] Exposure to 2022-01-12 2022-01-22 Not sure University of SARS-CoV-2 (event) 00:00:00 10:38:00 [facility] [place] History of Social 2018-12-31 2018-12-[address] function 00:00:00 00:00:00 Hospital Alcohol intake 2018-04-29 2018-04-29 Current drinker Metho dist 00:00:00 00:00:00 of [facility] Hospital (finding) Tobacco use and 2017-10-17 2017-10-17 Smokeless tobacco Un iversity of exposure 00:00:00 00:00:00 non-user Lindsay masterson [facility] [place] Cigarettes smoked 2017-10-17 2017-10-17 Univers ity of current (pack per 00:00:00 00:00:00 Lindsay Lopez ) - Reported Cancer Ce nter Cigarette 2017-10-17 2017-10-17 University of pack-years 00:00:00 00:00:00 Lindsay masterson [facility] Alcohol Comment 2017-07-04 2017-07-04 ocassional Uatsdin 00:00:00 00:00:00 Hospital History of tobacco 2012-05-13 Cigarette Smoker University of use 00:00:00 [facility] Sex Assigned At [birth year] Universit y of 00:00:00 00:00:00 Lindsay masterson [facility] Smoking Status Start Date Stop Date Source Ex-smoker 2022-02-07 00:00:00 2022-02-07 00:00:00 [facility] Medications Ordered Filled Start Stop Current Ordering Indication Dosage Frequency Signature Comments Components Source Medication Medication Date Date Medication? Clinician (SIG) Name Name fluconazole 2021- No [id number] 150mg Take 1 Univers 150 mg -02-10 tablet by ity of tablet 00:00: 04:59 [place] :[place] now for 1 Medical dose. Branch aspirin 81 Yes 81mg Take 81 mg U nivers mg EC 9-28 by mouth ity of tablet 14:30: daily. [address] ALPRAZolam Yes .5mg Take 0.5 Uni vers 0.5 mg 9-28 mg by ity of tablet 14:30: mouth. [address] aspirin 81 Yes 81mg Take 81 mg U nivers mg EC 9-28 by mouth ity of tablet 14:30: daily. [address] ALPRAZolam Yes .5mg Take 0.5 Uni vers 0.5 mg 9-28 mg by ity of tablet 14:30: mouth. [address] aspirin 81 2022-0 Yes 81mg Take 81 mg U nivers mg EC 9-28 by mouth ity of tablet 14:30: daily. [address] ALPRAZolam 0 Yes .5mg Take 0.5 Uni vers 0.5 mg 9-28 mg by ity of tablet 14:30: mouth. [address] aspirin 81 0 Yes 81mg Take 81 mg U nivers mg EC 9-28 by mouth ity of tablet 14:30: daily. [address] ALPRAZolam 0 Yes .5mg Take 0.5 Uni vers 0.5 mg 9-28 mg by ity of tablet 14:30: mouth. [address] aspirin 81 0 Yes 81mg Take 81 mg U nivers mg EC 9-28 by mouth ity of tablet 14:30: daily. [address] ALPRAZolam Yes .5mg Take 0.5 Uni vers 0.5 mg 9-28 mg by ity of tablet 14:30: mouth. [address] aspirin 81 0 Yes 81mg Take 81 mg U nivers mg EC 9-28 by mouth ity of tablet 14:30: daily. [address] ALPRAZolam Yes .5mg Take 0.5 Uni vers 0.5 mg 9-28 mg by ity of tablet 14:30: mouth. [address] doxepin 25 0 Yes Univers mg capsule 02-05 ity of 00:00: [place] [address] Medical Branch doxepin 25 0 Yes Univers mg capsule 02-05 ity of 00:00: [place] [address] Medical Branch doxepin 25 0 Yes Univers mg capsule 02-05 ity of 00:00: [address] Branch doxepin 25 0 Yes Univers mg capsule 02-05 ity of 00:00: [place] [address] Medical Branch doxepin 25 0 Yes Univers mg capsule 02-05 ity of 00:00: [address] Branch doxepin 25 0 Yes Univers mg capsule 02-05 ity of 00:00: [place] [address] Medical Branch acetaminoph 0 Yes TAKE 2 Univ ers en-codeine 9-13 TABLET BY ity of 300-30 mg 00:00: MOUTH [facility] 00 EVERY 8 Medical HOURS FOR Branch PAIN CONTROL acetaminoph Yes TAKE 2 Univ ers en-codeine 9-13 TABLET BY ity of 300-30 mg 00:00: MOUTH [place] tablet 00 EVERY 8 Medical HOURS FOR Branch PAIN CONTROL acetaminoph Yes TAKE 2 Univ ers en-codeine 9-13 TABLET BY ity of 300-30 mg 00:00: MOUTH [place] tablet 00 EVERY 8 Medical HOURS FOR Branch PAIN CONTROL acetaminoph Yes TAKE 2 Univ ers en-codeine 9-13 TABLET BY ity of 300-30 mg 00:00: MOUTH [place] tablet 00 EVERY 8 Medical HOURS FOR Branch PAIN CONTROL acetaminoph Yes TAKE 2 Univ ers en-codeine 9-13 TABLET BY ity of 300-30 mg 00:00: MOUTH [place] tablet 00 EVERY 8 Medical HOURS FOR Branch PAIN CONTROL acetaminoph Yes TAKE 2 Univ ers en-codeine 9-13 TABLET BY ity of 300-30 mg 00:00: MOUTH [place] tablet 00 EVERY 8 Medical HOURS FOR Branch PAIN CONTROL cholecalcif Yes 400U Take 400 Un leila [place], 9-12 Units by ity of vitamin D3, 14:54: [place] (VITAMIN 23 D3) 4,000 Anderso units tab n tablet Cancer Center ibuprofen Yes pain 200mg Take 200 Uni vers (ADVIL,MOTR 9-12 mg by ity of [place]) 200 mg 14:54: mouth [place] tablet 23 every 8 MD (eight) Anderso hours as n needed. Cancer Center vit Yes 1{tbl} Take 1 Univers D3/folic 9-12 tablet by ity of acid/B2/B6/ 14:54: mouth [place] B12 23 daily. MD NATASHA DESHPANDE) edda [facility] aspirin 81 Yes 81mg Take 81 mg U nivers mg EC 9-12 by mouth ity of tablet 14:54: daily. 23 MD [facility] ba[facility]os [facility] omeprazole Yes 20mg Take 20 mg U nivers (PriLOSEC) 9-12 by mouth ity o f 20 mg 14:54: daily. [place] capsule 23 MD [facility] ba[facility] bisacodyl Yes 1{tbl} Take 1 Univ ers (EX-LAX 9-12 tablet by ity of ULTRA ORAL) 14:54: mouth [place] 23 needed. MD [place] bañuelos [facility] Center L. Yes 1{tbl} Take 1 Univers acidophilus 9-12 tablet by ity of /Bifid. 14:54: mouth [place] animalis 23 daily. (DAILY [place] PROBIOTIC n ORAL) Cancer Center diazePAM Yes 2mg Take 2 mg Univ ers (VALIUM) 2 9-12 by mouth ity o f mg tablet 14:54: [place]. [place] 23 [place] bañuelos [facility] ALPRAZolam Yes .5mg Take 0.5 Uni vers (XANAX) 0.5 9-12 mg by ity of mg tablet 14:54: [place] 23 bedtime. MD Boone bañuelos [facility] cholecalcif Yes 400U Take 400 Un le[place], 9-12 Units by ity of vitamin D3, 14:54: [place] (VITAMIN 23 MD D3) 4,000 Anderso units tab n tablet Cancer [place] ibuprofen Yes pain 200mg Take 200 Uni vers (ADVIL,MOTR 9-12 mg by ity of [place]) 200 mg 14:54: mouth [place] tablet 23 every 8 (eight) Anderso hours as n needed. Cancer [place] vit Yes 1{tbl} Take 1 Univers D3/folic 9-12 tablet by ity of acid/B2/B6/ 14:54: mouth [place] B12 23 daily. MD edda (FOLGARD Anderso ORAL) [facility] aspirin 81 Yes 81mg Take 81 mg U nivers mg EC 9-12 by mouth ity of tablet 14:54: daily. [place] 23 MD Boone bañuelos [facility] omeprazole Yes 20mg Take 20 mg U nivers (PriLOSEC) 9-12 by mouth ity o f 20 mg 14:54: daily. [place] capsule 23 MD Boone bañuelos [facility] bisacodyl Yes 1{tbl} Take 1 Univ ers (EX-LAX 9-12 tablet by ity of ULTRA ORAL) 14:54: mouth [place] 23 needed. MD [place] bañuelos [facility] Center L. Yes 1{tbl} Take 1 Univers acidophilus 9-12 tablet by ity of /Bifid. 14:54: mouth [place] animalis 23 daily. (DAILY [place] PROBIOTIC edda ORAL) [facility] diazePAM Yes 2mg Take 2 mg Univ ers (VALIUM) 2 9-12 by mouth ity o f mg tablet 14:54: [place]. [place] 23 [place] bañuelos [facility] ALPRAZolam Yes .5mg Take 0.5 Uni vers (XANAX) 0.5 9-12 mg by ity of mg tablet 14:54: [place] 23 bedtime. MD Bo[place] bañuelos [facility] sodium,pota Yes Colonoscopy 2 bottles Univers ssium,mag 01-19 planned w/ no ity of sulfates 00:00: refills [place] 17.5-3.13-1 00 [facility] sodium,pota Yes Colonoscopy 2 bottles Univers ssium,mag 01-19 planned w/ no ity of sulfates 00:00: refills [place] 17.5-3.13-1 00 [facility] polyethylen 2021- No Colonoscopy Use as Univers e 01-08 planned directed ity of glycol-elec 00:00: 00:00 [facility] 00 :00 ordering MD BAEZ) provider. Momo kennedyo 420 g n solution [facility] polyethylen 2021- No Colonoscopy Use as Univers e 01-08 planned directed ity of glycol-elec 00:00: 00:00 by [facility] 00 :00 ordering MD BAEZ) provider. Momo crowe 420 g n solution [facility] TRINTELLIX 2018-05 Yes 1{tbl} Take 1 Uni vers 20 mg tab 0-06 tablet by ity o f 00:00: mouth [place] 00 daily. MD Boone bañuelos [facility] TRINTELLIX 2018-05 Yes 1{tbl} Take 1 Uni vers 20 mg tab 0-06 tablet by ity o f 00:00: mouth [place] 00 daily. MD Boone bañuelos [facility] FABB Yes TAKE 1 Univers 2.2-25-1 mg 9-20 TABLET BY ity of tab 00:00: MOUTH [place] 00 DAILY. MD Bo[place] bañuelos [facility] Center FABB 2019-0 Yes TAKE 1 Univers 2.2-25-1 mg 9-20 TABLET BY ity of tab 00:00: MOUTH [place] 00 DAILY. MD Bo[place] bañuelos [facility] Center aspirin 2017-05 Yes 81mg Take 81 mg Meth kristina (ECOTRIN) 2-[address] 81 MG 14:44: Hospita enteric 27 l coated tablet ibuprofen 2017-05 Yes 200mg Take 200 Met hodi (ADVIL,MOTR 2-[address] [place]) 200 MG 14:44: mouth. Hospi ta tablet 27 l aspirin 2017-05 Yes 81mg Take 81 mg [...] a (FLORASTOR) 36 l 250 mg capsule Saccharomyc 2017-05 Yes 250mg Take 250 M ethodi es 2-[address] boulardii 14:43: mouth. Hospit a (FLORASTOR) 36 l 250 mg capsule cyanocobala 2017-05 Yes Take by Met hodi min 2-[address] (CYANOCOBAL 14:42: Hospit a SHUKLA) 1999 28 l MCG tablet cholecalcif 2017-05 Yes 400U Take 400 Me thodi [place], 2-[address] vitamin D3, 14:42: mouth. Hosp georgette 4,000 unit 28 l tablet acetaminoph 2017-05 Yes 500mg Take 500 M ethodi en 2-[address] (TYLENOL) 14:42: mouth. Hospit a 500 MG 28 l tablet cyanocobala 2017-05 Yes Take by Met hodi [...] 1-27 st tablet 00:00: Hospita 00 l TRINTELLIX 2017-05 Yes Methodi 10 mg 1-27 st tablet 00:00: Hospita 00 l FABB 2017-05 Yes Methodi 2.2-25-1 mg 1-25 st tablet 00:00: Hospita 00 l FABB 2017-05 Yes Methodi 2.2-25-1 mg 1-25 st tablet 00:00: Hospita 00 l lamoTRIgine 2017-05 Yes TK 2 TS PO Methodi (LaMICtal) 1-[address] 25 MG 00:00: Hospita tablet 00 l lamoTRIgine 2017-05 Yes TK 2 [...] (six) hours as needed for mild pain. VIT 2017-05 Yes 1{tbl} QD Take 1 [...] nightly. Hospita enteric 29 l coated tablet aspirin 2017-05 Yes 81mg QD Take 81 mg Meth kristina (ECOTRIN) 0-[address] 81 MG 10:08: nightly. Hospita enteric 29 l coated tablet Folic 2017- Yes [id number] 1{tbl} Take 1 Uni vers Acid-Vit 9-28 tablet by ity of B6-Vit B12 00:00: mouth [place] (FOLGARD 00 daily. Medical RX) Branch 2.2-25-1 mg Tab Folic Yes [id number] 1{tbl} Take 1 Uni vers Acid-Vit 9-28 tablet by ity of B6-Vit B12 00:00: mouth [place] (FOLGARD 00 daily. Medical RX) Branch 2.2-25-1 mg Tab Folic Yes [id number] 1{tbl} Take 1 Uni vers Acid-Vit 9-28 tablet by ity of B6-Vit B12 00:00: mouth [place] (FOLGARD 00 daily. Medical RX) Branch 2.2-25-1 mg Tab folic Yes 1{tbl} Take 1 Methodi acid-vit 9-[address] B6-vit B12 00:00: mouth. Hospi ta 2.2-25-1 mg 00 l tablet folic Yes 1{tbl} Take 1 Methodi acid-vit 9-[address] B6-vit B12 00:00: mouth. Hospi ta 2.2-25-1 mg 00 l tablet Folic 2021- No [id number] 1{tbl} Take 1 Un leila Acid-Vit 9-28 09-30 tablet by ity o f B6-Vit B12 00:00: 00:00 mouth [place] (FOLGARD 00 :00 daily. Medical RX) Branch 2.2-25-1 mg Tab pantoprazol Yes 20mg Take 1 Univ ers e 20 mg EC 9-21 tablet by ity of tablet 00:00: mouth 2 [place] 00 (two) Medical times Branch daily. pantoprazol Yes 20mg Take 1 Univ ers e 20 mg EC 9-21 tablet by ity of tablet 00:00: mouth 2 (two) Medical times Branch daily. pantoprazol Yes 20mg Take 1 Univ ers e 20 mg EC 9-21 tablet by ity of tablet 00:00: mouth 2 00 (two) Medical times Branch daily. pantoprazol 2021- No 20mg Take 1 Uni vers e 20 mg EC 9-21 09-30 tablet by ity of tablet 00:00: 00:00 mouth 2 [place] 00 :00 (two) Medical times Branch daily. Lactobacill Yes [id number] 1{capsu Take 1 Univers us 9-20 le} capsule by ity of rhamnosus 00:00: mouth [place] GG 00 daily. Medical ([facility] ) 15 billion cell CpSP Lactobacill Yes [id number] 1{capsu Take 1 Univers us 9-20 le} capsule by ity of rhamnosus 00:00: mouth [place] GG 00 daily. Medical ([facility] ) 15 billion cell CpSP Lactobacill Yes [id number] 1{capsu Take 1 Univers us 9-20 le} capsule by ity of rhamnosus 00:00: mouth [place] GG 00 daily. Medical ([facility] ) 15 billion cell CpSP Lactobacill Yes 1{capsu Take 1 M ethodi us 9-20 le} capsule by st rhamnosus 00:00: mouth. Hospit a GG 15 00 l billion cell capsule, sprinkle Lactobacill Yes 1{capsu Take 1 M ethodi us 9-20 le} capsule by st rhamnosus 00:00: mouth. Hospit a GG 15 00 l billion cell capsule, sprinkle Lactobacill 2021- No [id number] 1{capsu Take 1 Univers us 9-20 09-30 le} capsule by ity of rhamnosus 00:00: 00:00 mouth [place] GG 00 :00 daily. Medical ([facility] ) 15 billion cell CpSP aspirin 81 Yes 81mg Take 81 mg U nivers mg EC 9-06 by mouth ity of tablet 19:21: daily. [place] [facility] Branch pantoprazol Yes [id number] 20mg Take 1 Univers e 9- tablet by ity of (PROTONIX) 00:00: mouth [place] 20 mg EC 00 daily. Medical tablet Branch fluconazole 2018-0 Yes [id number] Take 1 tab Univers (DIFLUCAN) 9-06 PO every ity o f 150 mg 00:00: other day [place] tablet 00 for 3 Medical doses Branch nystatin 2018-0 Yes [id number] Take 5 mL Univers 100,000 9-06 by mouth 4 ity of unit/mL 00:00: (four) [place] suspension 00 times Medical daily. Branch pantoprazol 2018-0 Yes [id number] 20mg Take 1 Univers e 9-06 tablet by ity of (PROTONIX) 00:00: mouth [place] 20 mg EC 00 daily. Medical tablet Branch fluconazole 2018-0 Yes [id number] Take 1 tab Univers (DIFLUCAN) 9-06 PO every ity o f 150 mg 00:00: other day [place] tablet 00 for 3 Medical doses Branch nystatin 2018-0 Yes [id number] Take 5 mL Univers 100,000 9-06 by mouth 4 ity of unit/mL 00:00: (four) [place] suspension 00 times Medical daily. Branch pantoprazol 2018-0 Yes [id number] 20mg Take 1 Univers e 9-06 tablet by ity of (PROTONIX) 00:00: mouth [place] 20 mg EC 00 daily. Medical tablet Branch fluconazole 2018-0 Yes [id number] Take 1 tab Univers (DIFLUCAN) 9-06 PO every ity o f 150 mg 00:00: other day [place] tablet 00 for 3 Medical doses Branch nystatin 2018-0 Yes [id number] Take 5 mL Univers 100,000 9-06 by mouth 4 ity of unit/mL 00:00: (four) [place] suspension 00 times Medical daily. Branch pantoprazol 2018-0 Yes 20mg Take 20 mg Methodi e [address] (PROTONIX) 00:00: Hospita 20 MG EC 00 l tablet nystatin 2018-0 Yes [id number] Take Method i (MYCOSTATIN 9-06 500,000 st ) 100,000 00:00: Units by Hosp georgette unit/mL 00 mouth. l suspension pantoprazol 2018-0 Yes 20mg Take 20 mg Methodi e 9-[address] (PROTONIX) 00:00: Hospita 20 MG EC 00 l tablet nystatin 2018-0 Yes [id number] Take Method i (MYCOSTATIN 01-16 500,000 st ) 100,000 00:00: Units by Hosp georgette unit/mL 00 mouth. l suspension pantoprazol 2021- No [id number] 20mg Take 1 Univers e 01-16 tablet by ity of (PROTONIX) 00:00: 00:00 mouth [place] 20 mg EC 00 :00 daily. Medical tablet Branch fluconazole 2021- No [id number] Take 1 tab Univers (DIFLUCAN) 01-16 PO every ity of 150 mg 00:00: 00:00 other day [place] tablet 00 :00 for 3 Medical doses Branch nystatin 2021- No [id number] Take 5 mL Univers 100,000 01-16 by mouth 4 ity o f unit/mL 00:00: 00:00 (four) [place] suspension 00 :00 times Medical daily. Branch ALPRAZolam Yes 1mg Take 1 mg Un leila 1 mg 24 hr 4-09 by mouth. ity of tablet 00:00: [facility] ALPRAZolam 0 Yes 1mg Take 1 mg Un leila 1 mg 24 hr 4-09 by mouth. ity of tablet 00:00: [facility] ALPRAZolam 2017-0 Yes 1mg Take 1 mg Un leila 1 mg 24 hr 4-09 by mouth. ity of tablet 00:00: [facility] ALPRAZolam 2017-0 Yes 1mg Take 1 mg Un leila 1 mg 24 hr 4-09 by mouth. ity of tablet 00:00: [facility] ALPRAZolam 2017-0 Yes 1mg Take 1 mg Un leila 1 mg 24 hr 4-09 by mouth. ity of tablet 00:00: [facility] ALPRAZolam 2017-0 Yes 1mg Take 1 mg Un leila 1 mg 24 hr 4-09 by mouth. ity of tablet 00:00: [facility] ALPRAZolam 2017-0 Yes 1mg Take 1 mg Un leila 1 mg 24 hr 4-09 by mouth. ity of tablet 00:00: [facility] ALPRAZolam 2017-0 Yes 1mg Q.5D Take 1 mg Me thodi XR (XANAX -[address] XR) 1 MG 24 00:00: (two) Hospi ta hr tablet 00 times a l day. lamoTRIgine 2018-0 Yes 200mg QD Take 200 M ethodi (LaMICtal) 4-[address] 200 MG 00:00: mouth Hospita tablet 00 nightly. l ALPRAZolam 2018-0 Yes 1mg Take 1 mg Me thodi XR (XANAX 4-[address] XR) 1 MG 24 00:00: Hospit a hr tablet 00 l ALPRAZolam 2018-0 Yes 1mg Q.5D Take 1 mg Me thodi XR (XANAX 4-[address] XR) 1 MG 24 00:00: (two) Hospi ta hr tablet 00 times a l day. lamoTRIgine 2018-0 Yes 200mg QD Take 200 M ethodi (LaMICtal) 4-[address] 200 MG 00:00: mouth Hospita tablet 00 nightly. l ALPRAZolam 2018-0 Yes 1mg Take 1 mg Me thodi XR (XANAX 4-[address] XR) 1 MG 24 00:00: Hospit a hr tablet 00 l ALPRAZolam 2018-0 Yes 1mg Take 1 mg Me thodi XR (XANAX 4-[address] XR) 2 MG 24 00:00: Hospit a hr tablet 00 l ALPRAZolam 2018-0 Yes 1mg Take 1 mg Me thodi XR (XANAX 4-[address] XR) 2 MG 24 00:00: Hospit a hr tablet 00 l clonazePAM 2016-05 Yes TK 1/2 TO Un leila 0.5 mg 0-11 1 T PO HS ity of tablet 00:00: PRN [address] clonazePAM 2016-05 Yes TK 1/2 TO Un leila 0.5 mg 0-11 1 T PO HS ity of tablet 00:00: PRN [place] [facility] clonazePAM 2016- Yes TK 1/2 TO Un leila 0.5 mg 0-11 1 T PO HS ity of tablet 00:00: PRN [address] clonazePAM 2016-05- No TK 1/2 TO U nivers 0.5 mg 0-11 09-30 1 T PO HS ity of tablet 00:00: 00:00 PRN [place] 00 :00 [facility] lamoTRIgine 2017-0 Yes 1{tbl} Take 1 Un leila 100 mg 3-08 tablet by ity of tablet 00:00: mouth [place] 00 daily. [facility] Branch lamoTRIgine 2016-0 Yes 1{tbl} Take 1 Un leila 100 mg 3-08 tablet by ity of tablet 00:00: mouth [place] 00 daily. [facility] lamoTRIgine 2016-0 Yes 1{tbl} Take 1 Un leila 100 mg 3-08 tablet by ity of tablet 00:00: mouth [place] 00 daily. [facility] lamoTRIgine 0 Yes 1{tbl} Take 1 Un leila 100 mg 3-08 tablet by ity of tablet 00:00: mouth [place] 00 daily. [facility] lamoTRIgine 0 Yes 1{tbl} Take 1 Un leila 100 mg 3-08 tablet by ity of tablet 00:00: mouth [place] 00 daily. [facility] lamoTRIgine 2016-0 Yes 1{tbl} Take 1 Un leila 100 mg 3-08 tablet by ity of tablet 00:00: mouth [place] 00 daily. [facility] lamoTRIgine 0 Yes 1{tbl} Take 1 Un leila 100 mg 3-08 tablet by ity of tablet 00:00: mouth [place] 00 daily. [facility] lamoTRIgine 0 Yes 1{tbl} Take 1 Me thodi (LaMICtal) 3-[address] 100 MG 00:00: [facility] tablet 00 l lamoTRIgine 0 Yes 1{tbl} Take 1 Me thodi (LaMICtal) 3-[address] 100 MG 00:00: mouth. [facility] tablet 00 l traZODONE 20170 Yes Univers 50 mg 2-23 ity of tablet 00:00: [place] 00 [facility] traZODONE 2017-0 Yes Univers 50 mg 2-23 ity of tablet 00:00: [place] 00 [facility] traZODONE 2017-0 Yes Univers 50 mg 2-23 ity of tablet 00:00: [place] 00 [facility] traZODONE 2017-0 Yes Univers 50 mg 2-23 ity of tablet 00:00: [place] 00 [facility] traZODONE 2017-0 Yes Univers 50 mg 2-23 ity of tablet 00:00: [place] 00 [facility] traZODONE 2017-0 Yes Univers 50 mg 2-23 ity of tablet 00:00: [place] 00 [facility] traZODONE 2017-0 Yes Univers 50 mg 2-23 ity of tablet 00:00: [place] 00 [facility] Immunizations Ordered Filled Immunization Date Status Comments [facility] e Immunization Name Name Influenza, 2018-02-14 Completed [facility]:00[facility], 2018-02-14 Completed University of Unspecified 00:00:00 [place] MD [facility] Influenza Virus 2016-03-26 Completed Universit y of Vaccine Quad IM 3+ 00:00:00 [facility] Influenza Virus 2016-03-26 Completed Universit y of Vaccine Quad IM 3+ 00:00:00 [facility] Influenza Virus 2016-03-26 Completed Universit y of Vaccine Quad IM 3+ 00:00:00 [facility] Influenza Virus 2016-03-26 Completed Universit y of Vaccine Quad IM 3+ 00:00:00 [facility] Influenza Virus 2016-03-26 Completed Universit y of Vaccine Quad IM 3+ 00:00:00 [facility] Influenza Virus 2016-03-26 Completed Universit y of Vaccine Quad IM 3+ 00:00:00 [facility] Influenza Virus 2016-03-26 Completed Universit y of Vaccine Quad IM 3+ 00:00:00 [facility] Influenza, 2016-03-26 Completed University of Quadrivalent 00:00:00 [facility] Influenza, 2016-03-26 Completed University of Quadrivalent 00:00:00 [facility] Vital Signs Vital Name Observation Time Observation Value Comments Source Systolic blood 2022-02-07 19:23:00 118 mm[Hg] Univer sity of pressure [facility] Diastolic blood 2022-02-07 19:23:00 83 mm[Hg] Unive rsity of pressure [facility] Heart rate 2022-02-07 19:23:00 96 /min [facility] Body temperature 2022-02-07 19:23:00 36.89 [facility] Respiratory rate 2022-02-07 19:23:00 18 /min [facility] Body height 2022-02-07 19:23:00 167.6 cm [facility] Body weight 2022-02-07 19:23:00 65.772 kg [facility] [place] [facility] BMI 2022-02-07 19:23:00 23.40 kg/m2 [facility] [place] [facility] WEIGHT 2020-08-25 07:12:00 68.4 kg Systolic blood 2022-01-22 19:00:00 119 mm[Hg] Univer sity of pressure [facility] Diastolic blood 2022-01-22 19:00:00 82 mm[Hg] Unive rsity of pressure [facility] Heart rate 2022-01-22 19:00:00 65 /[facility] [place] [facility] Oxygen saturation in 2022-01-22 19:00:00 100 /min [facility] Arterial blood by Lindsay reza Pulse oximetry [facility] Respiratory rate 2022-01-22 18:50:00 16 /min [facility] Body temperature 2022-01-22 18:48:00 36 Lindsey [facility] Body weight 2022-01-22 17:32:00 64.8 kg Universi ty [facility] BMI 2022-01-22 17:32:00 23.06 kg/m2 [facility] Procedures Procedure Date / Time Performing Clinician Source Performed US PELVIS COMPLETE WITH 2022-02-27 20:46:22 Angelic Scherer [facility] TRANSVAGINAL Medical Branch [facility] PATIENT FINANCIAL 2022-02-27 19:18:50 Doctor Unassigned, [facility] POLICY [place] [facility] NO SHOW OR MISSED 2022-02-27 19:18:35 Doctor Unassigned, [facility] APPOINTMENT POLICY [place] [facility] ACKNOWLEDGEMENT CONSENT/REFUSAL FOR 2022-02-27 19:18:19 Doctor Unaaria, [facility] DIAGNOSIS AND TREATMENT [place] [facility] ASSIGNMENT OF BENEFITS 2022-02-27 19:18:00 Doctor Unassigned, [facility] [place] [facility] COMPREHENSIVE METABOLIC 2022-01-22 20:08:00 Lizbet [facility] PANEL [facility] MAGNESIUM LEVEL 2022-01-22 20:08:00 Lizbet Hammond [facility] PHOSPHORUS LEVEL 2022-01-22 20:08:00 [facility] COMPLETE BLOOD COUNT W/ 2022-01-22 20:08:00 Lizbet [facility] DIFFERENTIAL [facility] CARCINOEMBRYONIC ANTIGEN 2022-01-22 20:08:00 Lizbet Hammond [facility] AMYLASE LEVEL 2022-01-22 20:08:00 Lizbet Hammond [facility] LIPASE LEVEL 2022-01-22 20:08:00 Lizbet Hammond [facility] GLUCOSE LEVEL 2022-01-22 20:08:00 Lizbet Hammond [facility] BLOOD UREA NITROGEN 2022-01-22 20:08:00 [facility] ELECTROL[facility]TE PANEL 2022-01-22 20:08:00 Lizbet Hammond [facility] SERUM CREATININE 2022-01-22 20:08:00 [facility] .GLOMERULAR FILTRATION 2022-01-22 20:08:00 [facility] TOTAL 2022-01-22 20:08:00 Lizbet Hammond [facility] ALBUMIN LEVEL 2022-01-22 20:08:00 Lizbet Hammond [facility] ALKALINE PHOSPHATASE 2022-01-22 20:08:00 Lizbet Hammond [facility] ALANINE AMINOTRANSFERASE 2022-01-22 20:08:00 Lizbet Hammond [facility] ASPARTATE AMINOTRANSFERASE 2022-01-22 20:08:00 Shaka Hammond i [facility] TOTAL PROTEIN 2022-01-22 20:08:00 Lizbet Hammond [facility] FRACTIONATED BILIRUBIN 2022-01-22 20:08:00 [facility] Results CBC 2022-01-22 20:08:00 Lizbet Hammond [facility] MANUAL DIFFERENTIAL 2022-01-22 20:08:00 Lizbet Hammond [facility] PATHOLOGY BIOPSY 2022-01-22 18:35:00 Lizbet Hammond [facility] INTERPRETATION [facility] BLOOD UREA NITROGEN 2022-01-19 14:56:00 Gucci [facility] SERUM CREATININE 2022-01-19 14:56:00 Gucci Teresa [facility] SERUM CREATININE 2022-01-19 14:56:00 Bri[facility] .GLOMERULAR FILTRATION 2022-01-19 14:56:00 Gucci Teresa [facility] RATE [facility] COVID-19 (SARS-COV-2) 2022-01-19 14:32:00 Filomena Ingram [facility] PCR-ASYMPTOMATIC [facility] DIAGNOSTIC FLEXIBLE Endoscopy, [facility] COLONOSCOPY PROXIMAL TO MD Daniel [facility] SPLENIC FLEXURE Center Plan of Care Planned Activity Planned Date Details Comments Source Future Scheduled Test 2023-01-15 COVID-19 VACCINE [facility] 13:32:01 (#1) [code = COVID-19 VACCINE (#1)] Future Scheduled Test 2023-01-15 Screening for [facility] 13:32:01 malignant neoplasm of cervix (procedure) [code = 798412182] Future Scheduled Test 2023-01-15 INFLUENZA VACCINE [facility] 13:32:01 (#1) [code = INFLUENZA VACCINE (#1)] Future Scheduled Test 2023-01-15 BREAST CANCER [facility] 13:32:01 SCREENING [code = BREAST CANCER SCREENING] Future Scheduled Test 2022-02-23 COVID-19 Vaccination [facility] 14:43:57 (#1) [code = MD John yao COVID-19 Vaccination Center (#1)] Future Scheduled Test 2022-01-22 COVID-19 Vaccination [facility] 14:54:29 (#1) [code = MD John yao COVID-19 Vaccination Center (#1)] Future Scheduled Test 2022-01-11 HEPATITIS B VACCINES [facility] 20:40:57 (1 of 3 - 3-dose series) [code = HEPATITIS B VACCINES (1 of 3 - 3-dose series)] Future Scheduled Test 2022-01-11 COVID-19 VACCINE [facility] 20:40:57 (#1) [code = COVID-19 VACCINE (#1)] Future Scheduled Test 2022-01-11 BREAST CANCER [facility] 20:40:57 SCREENING [code = BREAST CANCER SCREENING] Future Scheduled Test 2022-01-11 Screening for [facility] 20:40:57 malignant neoplasm of cervix (procedure) [code = 727874955] Future Scheduled Test 2022-01-11 INFLUENZA VACCINE [facility] 20:40:57 [code = INFLUENZA VACCINE] Future Appointment 2023-08-26 Carole Minaya MD, [facility] 00:00:00 1515 Shy Johnson MD [address] Future Appointment 2023-08-26 Carole Minaya MD, [facility] 00:00:00 MD John yao Center Encounters Start End Encounter Admission Attending Care Care Encounter Source Date/Time Date/Time Type Type Clinicians Facility Department ID 2022-02-09 Outpatient VANDA MINAYA Linda/Hep/Nu [id number] 22:17:22 CAROLE bañuelos 2019-12-02 Outpatient VANDA DC [id number] 08:58:29 Boone bañuelos 2019-11-06 Outpatient VANDA ATKINS MDA [id number] 14:37:14 TORRES bañuelos 2019-11-06 Outpatient VANDA ATKINS MDA [id number] 14:37:14 TORRES bañuelos 2022-12-04 2022-12-04 Telephone Shanice Monge.2.840.1 [id number] Method 00:00:00 00:00:[address] 3.430.2.7 Hospit a .3.123072 lauren .8 2022-02-27 2022-02-27 [facility] 1.2.840.114 [id number] Univers 14:20:41 23:59:00 Encounter Angelic LAURATON 350.1.13.10 ity of [place] 4.2.7.2.686 [facility] [id number] [facility] 806 Branch 2022-02-27 2022-02-27 Outpatient R [facility] [id number] Univers 14:17:55 14:19:00 ANGELIC ity [facility] 2022-02-27 2022-02-27 Outpatient [facility] [id number] Univers 14:17:55 14:19:00 ANGELIC ity [facility] 2022-02-27 2022-02-27 [facility] 1.2.840.114 [id number] Univers 14:00:00 14:19:00 Encounter Angelic Mills HANY 350.1.13.10 ity of [place] 4.2.7.2.686 [facility] [id number] [facility] 800 Branch 2022-02-21 2022-02-21 Prep for [place], 1.2.840.1 [id number] Univers 00:00:00 00:00:00 Surgery Charmaine 31737.1.1 ity of 3.412.2.7 [place] .3.692969 MD Nicole8 [facility] 2022-02-20 2022-02-20 Documentat [place], 1.2.840.1 [id number] Univers 00:00:00 00:00:00 ion Charmaine 97472.1.1 ity of 3.412.2.7 [place] .3.424598 MD Catalan [facility] 2022-02-12 2022-02-12 [facility] 1.2.416.232 [id number] Univers 00:00:00 00:00:00 Angelic LEACH 350.1.13.10 [place] [id number] [address] 2022-02-09 2022-02-09 Case [facility] 1.2.840.114 [id number] Univers 00:00:00 00:00:00 Management Angelic Mills HANY 350.1.13.10 [place] [id number] [address] 2022-02-07 2022-02-07 [id number] Univers 13:30:00 15:26:53 ANGELIC ity [facility] 2022-02-07 2022-02-07 Outpatient R AD, [facility] [id number] Univers 13:30:00 15:26:53 [facility]22-02-07 [facility] 1.2.846.649 [id number] Univers 13:30:00 15:26:53 Visit Angelic L MYCHAL 350.1.13.10 i ty of [place] [id number] [address] 2022-01-22 2022-01-22 [facility] 1.2.840.1 [id number] [facility] 14:55:13 23:59:00 Encounter , Lizbet 31912.1.1 it y of 3.412.2.7 [place] .3.113066 .8 [facility] 2022-01-22 2022-01-22 [facility] 1.2.840.1 [id number] 14:55:13 23:59:00 Encounter , LIZBET 63794.1.1 An derso 3.412.2.7 n .3.489392 .8 2022-01-22 2022-01-22 [facility] 1.2.840.1 [id number] Univers 10:44:00 14:54:00 Encounter , Lizbet 05022.1.1 it y of 3.412.2.7 [place] .3.054877 MD Nicole8 [facility] 2022-01-22 2022-01-22 [facility] 1.2.840.1 [id number] Univers 10:44:00 14:54:00 Encounter , Lizbet 43060.1.1 it y of 3.412.2.7 [place] .3.397021 MD Nicole8 [facility] 2022-01-22 2022-01-22 Anesthesia Noe Villagomez 1.2.840.1 [id number] Univers 13:13:00 13:49:00 Event Geraldo Marvin 18386.1.1 ity of 3.412.2.7 [place] .3.233810 MD Nicole8 [facility] 2022-01-22 2022-01-22 Anesthesia Noe Villagomez 1.2.840.1 [id number] Univers 13:13:00 13:49:00 Event Geraldo Marvin 28094.1.1 ity of 3.412.2.7 [place] .3.418429 MD Catalan [facility] 2022-01-22 2022-01-22 Surgery [facility] 1.2.840.1 [id number] [facility] 12:00:00 13:00:00 , Lizbet 11457.1.1 ity of 3.412.2.7 [place] .3.672642 MD Catalan [facility] 2022-01-22 2022-01-22 Surgery [facility] 1.2.840.1 [id number] [facility] 12:00:00 13:00:00 , Lizbet 18988.1.1 ity of 3.412.2.7 [place] .3.793596 MD Nicole8 [facility] 2022-01-22 2022-01-22 Travel 1.2.840.1 1.2.394.935 [id number] Univers 00:00:00 00:00:00 84175.1.1 350.1.13.41 ity of 3.412.2.[place].3.698 [place] .3.895324 084.8 MD Nicole8 [facility] 2022-01-22 2022-01-22 Travel 1.2.840.1 1.2.208.915 [id number] Univers 00:00:00 00:00:00 98716.1.1 350.1.13.41 ity of 3.412.2.[place].3.698 [place] .3.540796 084.8 MD Nicole8 [facility] 2022-01-19 2022-01-19 [facility], 1.2.840.1 [id number] Univers 09:45:59 23:59:00 Encounter Gucci 40093.1.1 it y of 3.412.2.7 [place] .3.202303 MD Nicole8 [facility] 2022-01-19 2022-01-19 [facility], 1.2.840.1 [id number] Univers 09:45:59 23:59:00 Encounter Gucci 08501.1.1 it y of 3.412.2.7 [place] .3.674106 MD Nicole8 [facility] 2022-01-19 2022-01-19 JADEN Gentile 1.2.840.1 [id number] Univers 15:00:00 15:30:00 Jessica slaughter 83581.1.1 i ty of ts Prakash 3.412.2.7 [place] .3.360813 MD Catalan [facility] 2022-01-19 2022-01-19 JADEN Gentile 1.2.840.1 [id number] Univers 15:00:00 15:30:00 Jessica slaughter 15920.1.1 i ty of ts Prakash 3.412.2.7 [place] .3.425512 MD Nicole8 [facility] 2022-01-19 2022-01-19 Prakash Kohler 1.2.840.1 [id number] Univers 07:15:00 09:49:43 Support Alonso Fierro 53712.1.1 ity of 3.412.2.7 [place] .3Bonnie243532 MD Nicole8 [facility] 2022-01-19 2022-01-19 Clinical Prakash Perkins 1.2.840.1 [id number] Univers 07:15:00 09:49:43 Support Alonso Fierro 39767.1.1 ity of 3.412.2.7 [place] .3Bonnie994860 MD Nicole8 [facility] 2022-01-19 2022-01-19 Anesthesia Sonia, 1.2.840.1 [id number] Univers 08:43:21 08:43:21 Event Jacklyn L 33524.1.1 ity of 3.412.2.7 [place] .3.938230 MD Nicole8 [facility] 2022-01-19 2022-01-19 Anesthesia Sonia, 1.2.840.1 [id number] Univers 08:43:21 08:43:21 Event Jacklyn L 04721.1.1 ity of 3.412.2.7 [place] .3.436972 MD Nicole8 [facility] 2022-01-19 2022-01-19 Refnohemi Murguia, 1.2.840.1 [id number] Univers 00:00:00 00:00:00 Samantha 23453.1.1 ity of 3.412.2.7 [place] .3.756417 MD Nicole8 [facility] 2022-01-19 2022-01-19 Telephone Gross, 1.2.840.1 [id number] Univers 00:00:00 00:00:00 Agus 92314.1.1 it y of [place] 3.412.2.7 [place] .3.387347 MD Nicole8 [facility] 2022-01-19 2022-01-19 Travel 1.2.840.1 1.2.445.805 [id number] Univers 00:00:00 00:00:00 39209.1.1 350.1.13.41 ity of 3.412.2.7 [place].3.698 [place] .3.128042 084.8 MD Catalan [facility] 2022-01-19 2022-01-19 Ignacio Grier, 1.2.840.1 [id number] Univers 00:00:00 00:00:00 Only Dilma 04384.1.1 ity of 3.412.2.7 [place] .3.682397 MD Catalan [facility] 2022-01-19 2022-01-19 Joce Murguia, 1.2.840.1 [id number] Univers 00:00:00 00:00:00 Samantha 42809.1.1 ity of 3.412.2.7 [place] .3.886763 MD Catalan [facility] 2022-01-19 2022-01-19 Deena Gross, 1.2.840.1 [id number] Univers 00:00:00 00:00:00 Agus 05791.1.1 it y of [place] 3.412.2.7 [place] .3.564963 MD Catalan [facility] 2022-01-19 2022-01-19 Travel 1.2.840.1 1.2.108.535 [id number] Univers 00:00:00 00:00:00 20943.1.1 350.1.13.41 ity of 3.412.2.[place]7.3.698 [place] .3.741328 084.8 MD Catalan [facility] 2022-01-19 2022-01-19 Ignacio Grier, 1.2.840.1 [id number] Univers 00:00:00 00:00:00 Only Dilma 63715.1.1 ity of 3.412.2.7 [place] .3.398278 MD Catalan [facility] 2022-01-18 2022-01-18 Ignacio Teresa, 1.2.840.1 [id number] Univers 00:00:00 00:00:00 Only Gucci 49713.1.1 ity of 3.412.2.7 [place] .3.687727 .8 [facility] 2022-01-18 2022-01-18 Ignacio Teresa, 1.2.840.1 [id number] Univers 00:00:00 00:00:00 Only Gucci 48754.1.1 ity of 3.412.2.7 [place] .3.784639 MD Nicole8 [facility] 2022-01-08 2022-01-08 oJce Murguia, 1.2.840.1 [id number] Univers 00:00:00 00:00:00 Samantha 52467.1.1 ity of 3.412.2.7 [place] .3.597888 .8 [facility] 2021-11-10 2021-11-10 Shiela Gutierrez. 1.2.840.1 [id number] Univers 00:00:00 00:00:00 Only 47095.1.1 ity of 3.412.2.7 [place] .3.430600 MD Nicole8 [facility] 2020-08-25 2020-08-25 Outpatient JESS MINAYA MDA Linda/Hep/Nu [id number] 06:55:00 09:10:00 CAROLE bañuelos 2020-08-24 2020-08-24 Outpatient JESS GENTILE MDA MDA [id number] 07:56:46 08:45:45 Ruddy SLAUGHTER 2020-08-22 2020-08-22 Outpatient JESS TIMMONS MDA MDA [id number] 12:11:07 12:14:53 WLAT bañuelos 2020-08-22 2020-08-22 Gore Inserter Vls-Lab [facility] 1.2.840.114 [id number] Univers 11:44:50 11:59:50 Visit Unknown, Attending SPECIALTY 350.1.13. 10 ity of CARE 4.2.7.2.686 [facility] AT [id number] Wy sorin CEDILLO [address] [place] [address] 2020-08-22 2020-08-22 Outpatient Jef BRIONES [facility] [id number] Univers 11:45:00 11:45:00 ATTENDING ity [facility] 2019-12-03 2019-12-03 Outpatient JESS SUAREZ MDA MDA [id number] 11:30:00 23:59:00 GAVIN bañuelos 2019-12-03 2019-12-03 Outpatient JESS GENTILE MDA MDA [id number] 12:09:02 13:12:51 Ruddy SLAUGHTER 2019-11-06 2019-11-06 Outpatient JESS MINAYA VANDA Linda/Hep/Nu [id number] 13:24:59 16:55:00 CAROLE bañuelos 2019-11-05 2019-11-05 Outpatient CHRIS GIBSON MDA MDA [id number] 09:38:24 23:59:00 Ruddy bañuelos 2019-11-05 2019-11-05 Outpatient JESS GENTILE MDA MDA [id number] 09:21:47 09:21:47 Ruddy SLAUGHTER 2019-11-05 2019-11-05 Outpatient JESS GENTILE MDA MDA [id number] 07:11:37 07:11:37 Ruddy SLAUGHTER 2019-11-03 2019-11-03 Outpatient JESS HERNANDEZ VANDA MDA [id number] 00:00:00 00:00:00 TAYO bañuelos Results Test Description Test Time Test Comments Results Result Comments Source Pathology Biopsy Interpretation 2022-01-23 17:24:36 Test Item Value Reference Range Interpretation Comme nts Submitted i2ikrJVmQJXfr6ddZHQyrOKmHvUbJnCxInUyQnnyzXPnBHruqpHrYFikr5BwJ3MkVwBdOOvhwfEkLKUw VzsdblsmRLOeBWV0qsHqUSHyDAjwAGHyBSulMq9haJDzkGdrSxRtZVKxs1jmqgNJjckgtVy0f2pqZBRx EqC9xULuXSniJ4auiuZuxOXxGJLlRZx3aL46FLEnmJ8 Clinical ozTYgUVtrndDiFvS5JMahIIUyXgV2YZIyaBLhPWKwK7uuIFLbWPznKZSvEStjaRDePVS2nXskk0I5uXE ynMSrtCyjHnUaDmMfQsCAo6ZyOCq7zBalU8ZcACHqTyP5wXCsQNFjXDanBYCjMFKshpM2yL54KRbkdnO 8kJXbg5Qfi96hw179hB7weEXoPMM7HPIyIWDpfIJyKL History VqCLQ6KUZlqUQhC5mwRTPeWV0wgjrtAJxtKQidQKAxdUF8WDRdfQIfQ1KuCEMsABonETWmcfk3JyLfFb 1dzVKgdOehZQtjm8jfy1bvlCAxFrk4WYUhQpLfKtmuOXnpi0Avk7eaGCJdhj6yVWQ5nPNkyIhsg9K3uL FlEXUvuGDbuqEdYTTqYuX1MOxwED0ack72QKRkCFF8j (test code y2wcXIgeElghaUzlCHiDOyxW0CwVXOny098YQWpY9SgPIYbf7Q5quNkKiLvXIAglVH7qrN1LZItQTj7g QIpsxT4svOqoNJiZ9ktmI6lWMDsPK7hymwfp1drTGjkFZmjKXQdqAU9tlE1WXYxjNTsX1VlhZ0uGNKgT DwtWSOlcsz3GaSdIl6rdKEebDxyVUvhXnnmXHhbXNTi = 52165) duDaocAvbXtfVVJdRYSqIXrfUAJoFKyaHCEmYNYzSqYhaPezfFxghX9vGrLgAhZgTMscND5aYXUuQ4wv cGXpBLUfPHZgO2fbDgTzgI2naOndYBpjpdEbDLLsdM9jLZUmshRvngiluo81AA91gPTbq5baILPskIIz kFBbOLAfZ7RaWE73IDixSPJlXWJff37uKSqrdHoogK7 ieEKhZmZgw4jsylzfUOXtoMhiZJwoPJKcUNNtDJgqvBHdrrbxTGkggrIsGYkxlxvvRKHpEAnhO2ytUgZ mYGBdnPyoLDoic5FsNNFnHFWdOaCjvDOrmK5= Diagnosis k8ztcHSwYGYinRK3IGFqIJHst2tze5XauQFhcCBlFFatfRXzbsTbdj09aHW5vM91TG7wIJPeChM6KWVe ozK7Rsj5NPPyJPTyrWDeE427z9gyd9yrkaIoiZJ2eNrxXQPwthsyThT1SKrjPDClfdrhKZp6HMecJNAi vLE6TRHgxTFzK2TwKDCzGG2nfhx9DHU3LZqgKVMtBdV (test code 8NYFltWSfOWJkfVjnOFmqf226UXR4FnZhUJErtmKdgEecsB2dGjGwYSMRGeNpA5qlyB2jEUThp9klbzJ xp2c1eEfvWcxhdKE5LdbllV0vMFXhGT1vNQKzq5UcF0HcrTm0IKVzFxXguaUrDQ6mNOYsnckinW3zrWE iJJpwvdFzJz5hXVmmeGmlf1swSM8aFH3hxHbksxOxM4 = 34) wwb7Mqlp9qyYDcyK== Gross j2jsdYJqYFJxbQTCYGyjNGlhkvQxHAYjnEQvZ3HrqbneZSniAZ4nLW8kgOxbaTFpeIHqCH5NGZIoFfBx GXBdzBQdwkNoTbTeXGEihIFfzTE3HXRuGS3ipwdhAPifGIprMNXpavX7AEJzfCSgI5XnERXnGM4rptnv GMS0NOkqbK5hahUEWrhkMz8yrXEwkNlsEiIvZsZzEXR Descriptio jGDMyVJKtoJpoGXHzBTs5lX0FRhyvT50ol0V0Mlb9IIGpNZXjC7HbYQ7ePDDfbJPgJ44FOtrsGLT6TKQ QSowmJEHsLI4Fn0foGSCarHGpGOE6PTurpFYrNVBwTBXmAOq3RQUeKZmmbYKfRZ5psWnwVvrsyCmbs4L nvTNaYOscSTKmAPTpTYkdGEDyLA7LKyFvPLUtKJVnOq n (test mpCCe6HLe9QD6CMiRxTSUpEVQ6JnM3ZXZeDTt0IDkjNV1OCGNzIpT7HDXoLjatRSKbNsxrEJt4ZCQdWB mbMFVifLTlJCjrOzXrPQVbNPipUxTjIDZeURsybjI8AHGvLBbzZXWxWxPfWPEMEwhzCODrHSiwsAmfhV 0gXCNdX61ln6SFd8EnRB4FLQk9raWoherriE2jZZWcg code = mSfTIlcoFVoH1vnXnjoMfVdDnAzASHPj0pdttzpa7xfmM6yZKZqw2cnvbRha4b4nZwkFbOzT6QhQPFCj 75urUKhTCNgTPPkWR6swg95eiJezSObTLMpk5SltGbqv8LnEU8cZPT5ichdFjJaOnIkJC3eIFKkZZOjm JbpOD35nBIalAmcm6LrgUu7cRCgPTfsUYZuFhJkOPEb 1692520765 k1FnF9I5LESoJNoae9taYSBqLXauk5ShQAaEYKTCQZ1QDF5nvRN0RKwQP3MQA7vYwNYfGRK1sRP1BOII SxxkwAI3lDG1aD54BCIaGBEgpIAzOKpzM938W499TGTeETdua1niBJYpAXhha0IlCUwPVPKSLH2LLH3j zYN2DHyPN6NQNVwiFGXvWrjleFDKGSG5BHhxcEewaQj ) 5s8duxGLfj7a7VVbkFVE8hYboqQWhganzzJTjaGttcxMvED9FCBGuqTJRKGF9LQ6fIRr3CShrMRXiA4H vG5PumdVbdOKgUTVqbhFcx8urLUC5UBUpzEMilPXbRnYhUhhqUHS0ABWiAMmvYS6EPGPpFGP2PGqmzK3 8dGZbTW3GYZYeAWtvCVNgAZWxxbA9DVIxwHTiRSQ8GM 3clZzemKNicqwxdbH2QO6KkH== Disclaimer x1jscEBfCMUdjHHsFoZfMIFsIYEtm6cmJAOzzGIjPqMnCdSePmWlZzgefJNsQFAtCsFbf5xvy392lDUl w8gwQOOxAlH6uDVpILVgqFYnI917JHJjSQbxf2byv6BnANNcoBZuo5U9RUBJqgbzeDv7uQaiR57zf8T7 VmflR3ttTSOtNLGrN2GpXH2cYHNeBmf4SWG2SKT0HSO (test code rDDNiJ9VmUJ7pBPJehAItKIu7i4ophKixNPNeXPX0m8lkMCdpinBcGY4ubo6yvUe9z6hukgEhUOZpDBM okHKQBKArM0BzeBifIf2gqRx8oYsqGgnqEYJ7Dhd7TP2ycx79hih2mCvbIRYzwvvoJsL3PByzXLEikgd vBQy4EYmqXXHkuBP4KIJrfHNdR2RwFVNlWP9vvsh8ZP = 9844) A2ERybSIScItM8SIZwaJSuCSPmmQkzRGznr620MQH7YjKmLF9iZ2Heg5Y5yY3taPIwQKSvrOLhAsAtZZ Bpiv8wcOPyPPbpd2XxXCL0qbQ1yIEexOWvCYObBU33Jatyc8RoQugsPXW1VQVypaNnf2Iwq0kiXiPwqz JuR6laO8SyWNCcYHHbBGTyXzOicyHoq2Rdv3NbtSIjq Ad8a4gzEFCdOZBbxNvmo9ouMMS2LRMsH5A5zKQpd6yfCPcjKHMrwCG9msF5IUIyfPIeJ6DkxK4xPLTfS Y7hvqu8l6ncJPJ9HGbeUWUyMwV0idQ1CJLzwPHkRHIzfAseNWwwo809NRZ2SwVcLQQig3OfX3ObqLleV 26tfVsfV43iWVTbjCyhyQ7avTvnrK8hArIvMyGqBIln oXubyDBokxymCHhytmF4VCvnbcnfIBOkVMgiY6ucVxHdGUBgiLucAThnp8RdIGDjYWZgLyqkvyP1OCHJ f68lDQKoe8YfTFTwjE5thGJdVSadovHnxTO5QOqiuqYyFfGjnxXlCPUjtJ8xMWQnDU8kBRUcqbCffs2k opGrEQJyRAXfG7RonhrsuTvagpZcOQAhtb1abtGfZTB 5MKJNXB1QUBQvGWYfw45hQAMxcKnxeY6toTWzfkAxJLDeu6GcjC0rhTHJMMLcF5ejZN3eRTvgx9CskUK qsQXjqAG4PQWvc4QoDdEfucAdgCXuuBBxC2XyzCanD2keXOKrESYruvQivUPxk5JcLANkwOH8rWYaWD1 GZeNQq18qXCCgOQWWtjEfBDJynOxkjPX3pnF2aR4qZk ITHhDcnEEjtUPcBmveZPEov796pw2iudG8FSZrPRZkpcqxd1RhWAYeUOGzaI92JHDoDSZxpm0rrvyrsE MdtoMcH9Pvyds1gB2jQUFtONyeHWVaONNhFmZbvFMlKaWbGnWuvBlmzRsoNFseFjTwIJOjADwyL2ftPi FcZnMyMlxwYXJ9 [facility] Interpretation 2022-01-23 17:24:36 Test Item Value Reference Range Interpretation Comments Submitted Clinical History [id number] (test code = 92923) mbGFuZzEwMzNcZnRuYm pcdWMxIHtccnRmMVxzc 5YrC6OjUuSpRYodxlWu XGRlZmxhbmcxMDMzXGZ 0bmJqXHVjMVxkZWZmMH prSd7kiIVxxZvuCeNkY CBzw3wofwKZjkrtrEm7 q5vnAVScGrK8jLPxXLm fP1wgwwNoqXZvDFEuQZ y5pZ24AFRmuA9ouPDeJ GtijiJjUmG2ERqqSXFr OhS4WMTigRQfFJWaY6q yZWQwXGdyZWVuMFxibH ThKYL7pOtoo6S6bYBhx GVldHtcZjBcZnMyMiBO j8ErFIs1bLboY1ZhGXL vSeN8uPYhQIUcPBnzPJ ImMQMireK5nL46JZoob xS1pSMsg1Hqo26qe413 lB2fuCIaWVE8SNJtZNY aqPXuGNOeOCT8TVOhdZ JmB9vkBCFhBC9bmanaR LuwERsyNCHmaJD4YYWf wLKfE7QhCHDsJJrnPJM ijzz9QnWtYt8rlVHrvA hlPJgeu0scb0dewCEtD kh0COUcLzPoYzkiWWnl k9Jgx9eoKJWxqu7xWHY 5qHVdiBsfz8I0xGXvNG ZdkKGffbTlABSyIuE7K ZrxYB9off15VGFfIDO7 iy8xeHBtqZxrwxJsaTJ tBCpoN2RkPDYlk485HF KdN6GdHCUpq1P0qqBwZ yYfKNYvtIR2zyB2KEXy JKy7jYMkgtK5tpIxwOT hL5ahfA4zJKNiNO0ght gtl1jqZSlfVWemLADdi GM0nhF9ALOduCQkZ9Og tT0kQLGhDAsgJSTenfd 1TcMuTj2zvOIboKmoYC xzYmtwYWdlXHBnbmNvb nRccGduZGVjXHBsYWlu XHBsYWluXGYwXGZzMjR guTrbzAemoG0vCoRwKt AdJOyfZE5dMYSbD6sfy LFwULDwDKDgY4hhQxWk yD9odZqvAKavlrWbMYX yvH9kCMCavkMwalwyxu 48VG93eARrs4faYVPkl HXqkUVpUOCoM3XoKE72 DIniKDOePTTtx94zELu zrLuxjG4ciPVlJuRkw9 xvbmljIHBvbHlwIFtaO DYuMDEwXVxwbGFpblxm MVxmczIyXGxhbmcxMDM cUMtvL3pdMzSgTIZnsS taJIzmr4WfLFTmPVIrT jJccGFyfX0= Diagnosis (test code = 34) p2gxlZPgWDPqyCO7EUE mSFSbq6mlp8QouVWztS RhPJmioHSjzyVbve23i PA0qJ44UN0oXVHsJpN2 GONgygN9Rqd1HXCrKEA reEAmY200s5yti8cwfc HzrWV4uBbyKAEtszhjJ hY9JCzhEMYoupuiEZo7 UHqxECTkjNG8WXBhlSD eB9PxGKLrCN8pvej9SV K1AOxnYJRxXfR7YQLzv JWlZKFmkFuiZKilu458 TEI6QiEnOZMqtlMhpSo irR5gXbHmTZAFQwUtP6 kkaB9kGAVft5zcotOub 3a1pOooYmfogJF9Itqm hG8pQOEcNU9uYQShp5H pN3AneCg7AKNhSeYcuj XaTU7bLALftbjksL9bl GEkLYrxwcPcSf2nFWrl mMjvf4oyIS6iFM9voYk kvhIcS6gup2Iktf7gdR FyfQ== Gross Description (test z6aeaDEuUEHwiWJBEBu code = [id number]) wMVxhbnNpXHNwbHRwZ3 DehzyeAQrtHB8cZX6vh LqvbSSqqPBtHK1INNTz ZmYxXHBhcGVydzEyMjQ kYKJsvGQkvDZ5TMKuFX 1hcmdsMTgwMFxtYXJnc bX5JMRawWBtJ5UmFDXy TT2fusphUAJ4MKgzcP1 ntrYTChdqZm0enAGllI tcZjFcZmNoYXJzZXQwX KTumGfzLHKsYWn3sP0S VbywO05xs8S5Vrd9CTR bGYBrD4EvVE0bWTLemX BbH12FDlkuRRV9NSBVA ttsVVSyVM1Ir3ciIRZo lFIzILO8NSmuwLZmIRH jTVQnRTi7ECEwVFoyqO XrMQ5qiFspUealmMezo 2VjdCBcXGlkIDUxMDAy VUhpMLQzUF9QOiAoHRT dJIWtMechWAm7HDd7VO 8WUsPoVDXrCJQ3PsQ1C POmRQj8XZhgLK6TJWGv BqD8AJRdNevvQUCxOxa xTCw5RYXyDEfcWSPhiY FsIFxcZnMgMTAgXFxmY oEaBUTmHDhhghN7HROp YWluXGJcZnMyMCBBOlx xFTZcLGuamMvrvN8nII ZyA48xx5FVj1LuJV1MX Py0xlPfeqikhP5cKQQy gyBoCHcwgQHsX8bjMby eRvBhDmHlZTGVz0axky hce9qheC0dQYGig3yzx sYve8z5cIquRdLqJ4Pe ATPYj12itZMlTFUwSOQ iMP9rkr77apAemFNuTE Jcn1FajEfur4CuBJ8vT JE8xbukJvIhQcXgFU6o JDYcSXHfwDdyIA34jNC awXjyd7GbxLv4gCKvIQ fgGRIrOkKaUCIgw8LoI 4A1MSSuDHqgu0tmHVUc VKshm9CuSNnNEIOUTT0 GYT5qlZI2KWfWV8YUZ3 sDnCIrZPE0lJL8JFCJP czquOO4tBP1jZ39NYXp TWNukLNjIXccN197C03 9LJFsXDbpl4qtSUUxUK hut8JyYJsCRCAOCA8KS U0roDP3ASlSA8RXTRxf OQXwPqamfGIFMKD0NVo asPahxZx1c1fdjTEjb6 w3VMwlNWJ8tYxtwVHcd rkuwYYjaGatgaRuEM2R ARXrpLXDKHQ8RW6zLCn 3PJklFIYpM1GmG7Nkyr RytCTbCFWpzbExq9cuW LO1KCZugDEytWHyRoBv PdenYOX0YJZeKVzvBE7 WAFBqYYU7VIzjxT77gV DsXR6UELNaLWbkNGVbF NViorJ5XNOgyMRlRWS9 AN2azPdgdABzieeyluC 3FU2ZrW== Disclaimer (test code = m1mfaYPnWBKbyQGxFgR 9844) cGPIjBJCwe1muZRDsrY FuZzEwMzNcZnRuYmpcd ILsGJUjMeLiq9lcs204 oVWjt0ycFDYxQgL7qQL mFHVifZSsW847LIReVM rjk1mwc5TnQPRrcSZwx 9S0WMKQmqhomAh0xIsg M62wt8X2KhcjJ4xfCSY rXBMxF2TuIV4kSCXeFl e7LIW7SRF7LTQcXJTsX 2TgRD4aFSJqnBAmTJz0 n1bnaVrbNOCyMQZ0i9f wIUohbtLyYV4cuc6llF c6t1rkohBqCEEcXAZuo SOUYHFtR7JcfDsoQa5o dMn3wWwlRohrKBF8Ned 3YF6slj49vop4bUxvWV RyjivtDcM1NSafKFNqp aggCBo0DVjmLIYjhIO7 AVKjsLXoJ1MdQQByPD5 sgve1OHZ4OExzTSUwCj I4YIOauGLsXEYquEkdM Rzrx454LWH7BxNyFS7s Q2Ulx2U5sX7fuVIlVHX reBMdQoFbETTzuz3xcT GyAUymt1DaEEL2gjT4b CRjzCBlIIFyJZ94Zagk a6EfOblsVZR3AUUpciM fp1Wyn9qaNoUpkfOxA3 nrI0LjXZHmEESpACAgK qUnemGyo7Eyj4BoxTNr jQo3g9zhWEYbLIZbnXd rc8xfHCX4BBGaW6R0kB Wfa5uqKVvqIXCsoKM1n eT5IAFsgQQbD1VtoK1n EHJzDK5fomp9s1lkWPI 0OHbiFLTbBfN2bkX7CN BcaGVhZGVyeTcyMFxmb 779UVJ8PbUqMAGmt2Ao K1GjrNxcU25vrNfrM32 eMGKhfNgxcY6alOkkfE 5cZjBcZnMyNFxxbFxwb RCxfweoPPsfzlR2IKhz xmmtQUZoQSlcJ5tdGxJ bZKVonEyvHKgxd9XoYN ChNARwXibkteL3SSXNy 69cAAKfo4LgJGEziG6q tLQmRBpivtOndQE9KGn hdmUgYmVlbiBkZXZlbG 4zROQwGT6mQHUmiyRed y8uibKwGAFsIRIlN7Uc cmlzdGljcyBkZXRlcm1 qucSsFGE9TUQESE0TVE FzORHwd27wPGWtrIrbw G5uoLTzcfGrEUTzf2Oj qY0kdKUDCLPkV3qhDK8 lYQiji7PznULauTZzjK Z1ODYni4FiKrWnmmXrx WIfcVLoA5InuQhuL8xu JXDmVMCtyyYssJTyx0N mWSCffWQ8dMJxLU1WAs KCg68kKEIwZNGSqlAaR TEwqVuzrFF1myM6wY6s LiBJZiBhcHBsaWNhYmx vAXTog611ls5pzlJ4DH YvEUIlxmhtu1GpAKQuR PUuhE41CSCpOJOrjc0m fxkhgIJhyyNbB7Inctf 9nU1uJNXpPKmjHXEkVY ZzMjJcbGFuZzEwMzNca GljaFxmMVxkYmNoXGYx BGixA6aiGlDnRcWmHxc wYXJ9 [facility] HoustonFractionated Ioqjxzitc0412-71-66 21:09:04 Test Item Value Reference Range Interpretation Comments Bili Total (test 1.1 mg/dL See_Comment Indocyanine Green (ICG) code = 1974-06) may cause fal sely elevated biliru bin results. Total and direct bilirubin must not be measured from s amples containing indo cyanine green. False el evation of total bilirubin can be seen in patient s with IgG concentrations above 28 g/L. [Automated message] The system [employer] generated this result transmitted ref erence range: <=1.2. T he reference range was not used to interpr et this result as normal/abnormal . Bili Direct (test 0.2 mg/dL See_Comment Indocyanin e Green (ICG) code = 1967-11) may cause fal sely elevated biliru bin results. Total and direct bilirubin must not be measured from s amples containing indo cyanine green. [Automat ed message] The sy stem which generated this result transmitted ref erence range: <=0.3. T he reference range was not used to interpr et this result as normal/abnormal . Bili Indirect (test 0.9 mg/dL 0.0-0.9 code = 1970-05) [facility] Center[facility]ractionated Dlcrlavhk5754-63-17 21:09:04 Test Item Value Reference Range Interpretation Comments Bili Total (test 1.1 mg/dL <=1.2 Indocyanine Green (ICG) code = 1974-06) may cause fal sely elevated biliru bin results. Total and direct bilirubin must not be measured from s amples containing indo cyanine green. False el evation of total bilirubin can be seen in patient s with IgG concentrations above 28 g/L. Bili Direct (test 0.2 mg/dL <=0.3 Indocyanin e Green (ICG) code = 1967-11) may cause fal sely elevated biliru bin results. Total and direct bilirubin must not be measured from s amples containing indo cyanine green. Bili Indirect (test 0.9 mg/dL 0.0-0.9 code = 1970-05) [facility] CenterGlomerular Filtration Rate 2022-01-22 21:09:03 Test Item Value Reference Range Interpretation Comments eGFR-AA (test code 123 See_Comment Normal eG FR: >= 60 = 93115-5) mL/min/1.73 m2N ote: The eGFR is calculated [...] reference range was not used to interpret is result as normal/abnormal . eGFR-TIMOTHY (test code 106 See_Comment Normal e GFR: >= 60 = 13712-1) mL/min/1.73 m2N ote: The eGFR is calculated [...] interpret th is result as normal/abnormal . [facility] CenterGlomer[facility] Fil[facility] Rate 2022-01-22 21:09:03 Test Item Value Reference Range Interpretation Comments eGFR-AA (test code 123 See_Comment Normal eG FR: >= 60 = 16388-5) mL/min/1.73 m2N ote: The eGFR is calculated [...] See_Comment Normal e GFR: >= 60 = 86684-2) mL/min/1.73 m2N ote: The eGFR is calculated [...] interpret th is result as normal/abnormal . [facility] CenterTotal Kazwccg6196-03-68 21:09:02 Test Item Value Reference Range Interpretation Comments Total Protein (test code = 2885-2) 7.3 g/dL 6.4-8.3 [facility] CenterTotal Llzipfp1690-35-27 21:09:02 Test Item Value Reference Range Interpretation Comments Total Protein (test code = 2885-2) 7.3 g/dL 6.4-8.3 [facility] CenterMagnesium Bwwrc7224-61-76 21:09:01 Test Item Value Reference Range Interpretation Comments Magnesium (test code = 59205-0) 2.2 mg/dL 1.6-2.6 [facility] CenterMagnesium Iyklp4361-10-70 21:09:01 Test Item Value Reference Range Interpretation Comments Magnesium (test code = 10124-0) 2.2 mg/dL 1.6-2.6 [facility] CenterAlkaline Yitoldvsbvo0393-06-86 21:09:00 Test Item Value Reference Range Interpretation Comments Alk Phos (test code = 6768-6) 59 U/L 35-104 [facility] CenterAlkaline Keirejvubbe8099-60-31 21:09:00 Test Item Value Reference Range Interpretation Comments Alk Phos (test code = 6768-6) 59 U/L 35-104 [facility] CenterALT2022-09-12 21:08:59 Test Item Value Reference Range Interpretation Comments ALT (test code = 14 U/L See_Comment [Automated message] The 1742-6) system which ge nerated this result transmit jerry reference range : <=33. The reference range was not used to interpr et this result as nile l/abnormal. [facility] CenterALT2022-09-12 21:08:59 Test Item Value Reference Range Interpretation Comments ALT (test code = 1742-6) 14 U/L <=33 [facility].Serum Mungfzekbm6089-51-91 21:08:57 Test Item Value Reference Range Interpretation Comments Creatinine (test code = 2160-0) 0.70 mg/dL 0.51-0.95 [facility].Serum Nkvhkczrws3487-89-68 21:08:57 Test Item Value Reference Range Interpretation Comments Creatinine (test code = 2160-0) 0.70 mg/dL 0.51-0.95 [facility] CenterPhosphorus Qryqe1737-49-89 21:08:56 Test Item Value Reference Range Interpretation Comments Phosphorus (test code = 2777-1) 3.0 mg/dL 2.5-4.5 [facility] CenterPhosphorus Hmqff1115-58-61 21:08:56 Test Item Value Reference Range Interpretation Comments Phosphorus (test code = 2777-1) 3.0 mg/dL 2.5-4.5 [facility] CenterBUN2022-09-12 21:08:55 Test Item Value Reference Range Interpretation Comments BUN (test code = 3094-0) 6 mg/dL 6 [facility] CenterBUN2022-09-12 21:08:55 Test Item Value Reference Range Interpretation Comments BUN (test code = 3094-0) 6 mg/dL 6 [facility] CenterCalcium Nbfwu1618-40-39 21:08:54 Test Item Value Reference Range Interpretation Comments Calcium Lvl (test code = 81251-9) 9.3 mg/dL 8.4-10.2 [facility] CenterCalcium Xscib0251-28-60 21:08:54 Test Item Value Reference Range Interpretation Comments Calcium Lvl (test code = 29447-7) 9.3 mg/dL 8.4-10.2 [facility] CenterAlbumin Cbdjg8904-33-25 21:08:53 Test Item Value Reference Range Interpretation Comments Albumin Lvl (test code 4.7 See_Comment [Aut omated message] The = 7601) system which ge nerated this result tra nsmitted reference range : 3.5 - 5.2 gm/dL. The refe rence range was not used to interpret this result as normal/abnormal . [facility] CenterAlbumin Gtgha2747-27-84 21:08:53 Test Item Value Reference Range Interpretation Comments Albumin Lvl (test code 4.7 See_Comment [Aut omated message] The = 3827) system which ge nerated this result tra nsmitted reference range : 3.5 - 5.2 gm/dL. The refe rence range was not used to interpret this result as normal/abnormal . [facility] CenterAspartate Aminotransferase 2022-01-22 21:08:52 Test Item Value Reference Range Interpretation Comments AST (test code = 16 U/L See_Comment [Automated message] The 1919-12) system which ge nerated this result transmit jerry reference range : <=32. The reference range was not used to interpr et this result as nile l/abnormal. [facility] CenterAspartate Aminotransferase 2022-01-22 21:08:52 Test Item Value Reference Range Interpretation Comments AST (test code = 1919-12) 16 U/L <=32 [facility] CenterCEA2022-09-12 21:08:51 Test Item Value Reference Range Interpretation [...] int erpret this result as nile l/abnormal. [facility] CenterCEA2022-09-12 21:08:51 Test Item Value Reference Range Interpretation Comments CEA (test 2.7 ng/mL <=3.8 Reference Range s:Smoker: 0.0 - code = 5.5Non-Smoker: 0.0 - 3.8This 2038-10) test is measure d by electrochemilum inescence immunoassay on Deborah Qamar immunoassay miri lyzers. Results obtained in dif ferent methods are not interch angeable. [facility] CenterElectrolyte Oeyve7871-87-25 21:08:50 Test Item Value Reference Range Interpretation [...] = 11 See_Comment [Aut omated message] The ) system which ge nerated this result tra nsmitted reference range : 4 - 14 mEq/L. The refe rence range was not u sed to interpret this result as normal/abnormal . [facility] HoustonElectrolyte Sbsqq9475-08-96 21:08:50 Test Item Value Reference Range Interpretation [...] = 11 See_Comment [Aut omated message] The 79260-6) system which ge nerated this result tra nsmitted reference range : 4 - 14 mEq/L. The refe rence range was not u sed to interpret this result as normal/abnormal . [facility] CenterGlucose Psnwh9321-00-96 21:08:48 Test Item Value Reference Range Interpretation Comments Glucose Level (test 82 mg/dL 70-99 Effectiv e 12/07/15, the code = 2345-7) glucose refer ence intervals have been updated based o n [place] [employer] luis armando delines (Standards of edical Care in Diabete s 2016. Diabetes Care 2 016; 39: S13-S22).Fastin g blood glucose:Normal: 70-99 mg/dLImpaired f asting glucose (increa sed risk for diabetes or pre-diabetes): 100-125 mg/dLDiabetes m ellitus: >/=126 mg/dL Ra ndom blood glucose:N ormal: 70-199 mg/dLNot e: Random glucose >100 mg /dL is associated with increased risk for diabetes [facility] CenterGlucose Qtorp4827-66-52 21:08:48 Test Item Value Reference Range Interpretation Comments Glucose Level (test 82 mg/dL 70-99 Effectiv e 12/07/15, the code = 2345-7) glucose refer ence intervals have been updated based o n [place] [employer] luis armando delines (Standards of edical Care in Diabete s 2016. Diabetes Care 2 016; 39: S13-S22).Fastin g blood glucose:Normal: 70-99 mg/dLImpaired f asting glucose (increa sed risk for diabetes or pre-diabetes): 100-125 mg/dLDiabetes m ellitus: >/=126 mg/dL Ra ndom blood glucose:N ormal: 70-199 mg/dLNot e: Random glucose >100 mg /dL is associated with increased risk for diabetes [facility] CenterLipase Adrbt7029-92-23 21:00:59 Test Item Value Reference Range Interpretation Comments Lipase Lvl (test code = 3040-3) 23 U/L 13-60 [facility] CenterLipase Viwuf3314-99-97 21:00:59 Test Item Value Reference Range Interpretation Comments Lipase Lvl (test code = 3040-3) 23 U/L 13-60 [facility] CenterAmylase Pkdvq2011-87-39 21:00:58 Test Item Value Reference Range Interpretation Comments Amylase Lvl (test code = 1798-8) 53 U/L 28-100 [facility] CenterAmylase Shvuv8928-80-13 21:00:58 Test Item Value Reference Range Interpretation Comments Amylase Lvl (test code = 1798-8) 53 U/L 28-100 [facility] CenterDifferential2022-09-12 20:37:07 Test Item Value Reference Range Interpretation [...] % 0.0-0.4 IGRE % c ount includes 10852-1) Metamyelocytes, Myelocytes, and Promyelocytes. Neutrophil Abs (test 4.34 K/uL 1.70-7.30 code = 751-8) Lymphocyte Abs (test 2.90 K/uL 1.00-4.80 code = 731-0) Monocyte Abs (test code 0.51 K/uL 0.08-0.70 = 742-7) Eosinophil Abs (test 0.27 K/uL 0.04-0.40 code = 711-2) Basophil Abs (test code 0.05 K/uL 0.00-0.10 = 704-7) IG Abs (test code = 0.03 K/uL 0.00-0.04 28983-7) [facility] CenterDifferential2022-09-12 20:37:07 Test Item Value Reference Range Interpretation [...] % 0.0-0.4 IGRE % c ount includes 99306-4) Metamyelocytes, Myelocytes, and Promyelocytes. Neutrophil Abs (test 4.34 K/uL 1.70-7.30 code = 751-8) Lymphocyte Abs (test 2.90 K/uL 1.00-4.80 code = 731-0) Monocyte Abs (test code 0.51 K/uL 0.08-0.70 = 742-7) Eosinophil Abs (test 0.27 K/uL 0.04-0.40 code = 711-2) Basophil Abs (test code 0.05 K/uL 0.00-0.10 = 704-7) IG Abs (test code = 0.03 K/uL 0.00-0.04 62455-8) [facility] [place].[id number] 20:36:54 Test Item Value Reference Range Interpretation Comments WBC (test code = 8.1 K/uL 4.0-11.0 6690-2) RBC (test code = 789-8) 4.36 See_Comment [Au tomated message] The system [employer] generated this result transmitted ref erence range: 4.00 - 5 .50 M/uL. The refer ence range was not u sed to interpret this result as normal/abnor mal. Hgb (test code = 718-7) 14.2 See_Comment [Au tomated message] The system [employer] generated this result transmitted ref erence range: [...] See_Comment [Automate d message] 786-4) The system [employer] generated this result transmitted ref erence range: 31.0 - 3 6.0 gm/dL. The refe rence range was not u sed to interpret this result as normal/abnor mal. RDW-SD (test code = 44.6 fL 35.1-46.3 90632-0) RDW-CV (test code = 12.5 % 12.0-15.5 788-0) Platelet count (test 374 K/uL 140-440 code = 777-3) MPV (test code = 9.7 fL 4.0-10.4 19445-6) INRBC (test code = 0.0 % See_Comment The INRBC (instrument 14192-6) NRBC) value ref lects the enumeration of nucleated red b lood cells contained in a 200uL sampleof whole blood analyzed by the instrument. Thi s value maydiffer from the NRBC value repo rted in a manual differential,wh ich is based on a 100 cell differential. [Automated mess age] The system [employer] generated this result transmitted ref erence range: <=0.0. T he reference range was not used to int erpret this result as normal/abnormal . Lab Interpretation Abnormal (test code = 71215-2) [facility] [place].BTD1426-69-73 20:36:54 Test Item Value Reference Range Interpretation Comments WBC (test code = 8.1 K/uL 4.0-11.0 6690-2) RBC (test code = 789-8) 4.36 See_Comment [Au tomated message] The system [employer] generated this result transmitted ref erence range: 4.00 - 5 .50 M/uL. The refer ence range was not u sed to interpret this result as normal/abnor mal. Hgb (test code = 718-7) 14.2 See_Comment [Au tomated message] The system [employer] generated this result transmitted ref erence range: [...] See_Comment [Automate d message] 786-4) The system [facility] h generated this result transmitted ref erence range: 31.0 - 3 6.0 gm/dL. The refe rence range was not u sed to interpret this result as normal/abnor mal. RDW-SD (test code = 44.6 fL 35.1-46.3 28714-8) RDW-CV (test code = 12.5 % 12.0-15.5 788-0) Platelet count (test 374 K/uL 140-440 code = 777-3) MPV (test code = 9.7 fL 4.0-10.4 37203-2) INRBC (test code = 0.0 % <=0.0 The INRBC (instrument 93580-3) NRBC) value ref lects the enumeration of nucleated red b lood cells contained in a 200uL sampleof whole blood analyzed by the instrument. Thi s value maydiffer from the NRBC value repo rted in a manual differential,wh ich is based on a 100 cell differential. Lab Interpretation Abnormal (test code = 08501-4) [facility]COVID[facility] (SARS-CoV-2) PCR- Asymptomatic [id number] 21:34:45 Test Item Value Reference Range Interpretation Comments COVID19 (SARS Not Detected Not Detected CoV-2) Result (test code = __This test is a 97972-9) qualitative reverse-transcr iptase polymerase sowmya n reaction (RT-PC R) developed for t [employer] QAMAR 680 0 system and inte nded [...] patients provid ed by the manufacture r ([employer]) c an be reviewed at:https://www. fda.gov /media/672315/d ownload . A fact sheet for Health Care pro viders is provided by the kiln stoker ([employer]) and can be reviewed at: https://www.fda .gov/me kaylee/621435/down load Results must be interpreted wit hin [...] were verified by the Microbiology Laboratory at [facility] [place], CLIA Accreditation # : [id number] and CAP Accreditation # : [id number]. COVID19 SARS EMPLOYMENT CONSULTANT Swab Source (test code = 46549) COVID19 SARS Post-Travel Indication (test Testing code = 37250) [facility] CenterCOVID-19 (SARS-CoV-2) PCR- Asymptomatic [id number] 21:34:45 Test Item Value Reference Range Interpretation Comments COVID19 (SARS Not Detected Not Detected CoV-2) Result (test code = __This test is a 82854-9) qualitative reverse-transcr iptase polymerase sowmya n reaction [...] patients provid ed by the manufacture r ([employer]) c an be reviewed at:https://www. fda.gov /media/716044/d ownload . A fact sheet for Health Care pro viders is provided by the kiln stoker ([employer]) and can be reviewed at: https://www.[employer] .gov/me kaylee/344163/down load Results must be interpreted wit hin [...] were verified by the Microbiology Laboratory at [facility], CLIA Accreditation # : [id number] and CAP Accreditation # : [id number]. COVID19 SARS EMPLOYMENT CONSULTANT Swab Source (test code = 55589) COVID19 SARS Post-Travel Indication (test Testing code = 27435) [facility] [place]
[2023-01-15 18:38] LABS: Arterial Blood Carboxyhemoglob 0.5 % (0-1.5); Blood Gas Oxyhemoglobin 97.6 % (94-97); Blood O2 Saturation 99.6 % (92-98.5)
[2023-01-15 19:00] LABS: Hematocrit 43.7 % (36.0-45.0); Lymphocytes % 7.6 % (15.3-44.8); MCV 98.4 fL (80-100); MPV 7.5 fL (7.6-11.3); Platelets 386 thou/uL (152-406); RBC Red Blood Cell Count 4.44 M/uL (3.86-4.86)
--- NOTE | 2023-01-15 19:00 | RAD REPORT ---
EXAM DESCRIPTION: Teresa Single View01/15/2023 6:35 pm CLINICAL HISTORY: Chest pain COMPARISON: none FINDINGS: The lungs appear clear of acute infiltrate. The heart is normal size IMPRESSION: No acute abnormalities displayed
[2023-01-15] MEDS ORDERED: Ringers Lactate 1,000 ML IV ONE (19:04)
[2023-01-15 19:07] LABS: Protime INR 0.93
[2023-01-15 19:18] LABS: Albumin 3.6 g/dL (3.4-5.0); Bilirubin Direct 0.2 mg/dL (0-0.2); Bilirubin Indirect, Calculated 0.5 mg/dL (0.2-0.8); Bilirubin Total 0.7 mg/dL (0.2-1.0); Magnesium 2.8 mg/dL (1.6-2.4); Potassium 3.9 mEq/L (3.5-5.1); Protein, Total 7.1 g/dL (6.4-8.2); Troponin High Sensitivity 10.1 pg/mL (<58.9)
[2023-01-15] MEDS ORDERED: CEFTRIAXONE 1000 MG/VIAL ONE (19:27)
--- NOTE | 2023-01-15 20:10 | RAD REPORT ---
EXAM DESCRIPTION: CT - Head C Spine Mpr Wo Con - 01/15/2023 7:54 pm CLINICAL HISTORY: Seizure. Head and neck injury status post fall. Head and neck pain COMPARISON: None. TECHNIQUE: Computed axial tomography of the head and cervical spine was obtained. Sagittal and coronal reconstruction was performed. All CT scans are performed using dose optimization technique as appropriate and may include automated exposure control or mA/KV adjustment according to patient size. FINDINGS: An intracranial bleed is not seen. The ventricles are normal in caliber. No significant hypodensity within the brain. An extra-axial fluid collection is not noted. Fluid within the visualized sinuses and mastoids is not seen A cervical fracture is not visualized. No dislocation is noted. Tracheostomy tube has been inserted. The tip is not included in the field of view IMPRESSION: No acute intracranial abnormality is seen. A cervical fracture is not visualized. If the patient continues to have symptoms to suggest intracranial /spinal cord pathology then MRI wou ld be recommended
--- NOTE | 2023-01-15 20:10 | RAD REPORT ---
EXAM DESCRIPTION: CT - Facial Bones W/ Mpr - 01/15/2023 7:57 pm CLINICAL HISTORY: Facial injury with pain status post fall COMPARISON: None TECHNIQUE: Computed axial tomography of the face was obtained. Coronal and sagittal reconstruction w as performed. All CT scans are performed using dose optimization technique as appropriate and may include automated exposure control or mA/KV adjustment according to patient size. FINDINGS: A fracture is not seen. A TMJ dislocation is not noted. The globes are intact. Fluid within the sinuses is not seen. IMPRESSION: Negative for a facial fracture.
--- NOTE | 2023-01-15 21:23 | EDPHYS ---
Physician Documentation [facility] Name: Naya Gaona Age: 42 yrs Sex: Female : 1980 Arrival Date: 01/15/2023 Time: 18:12 Bed 4 Private MD: ED Physician Gene Larsen HPI: 01/15 18:47 This 42 yrs old Female presents to ER via EMS with complaints of Overdose. cp3 18:47 The patient presents to the emergency department with a possible overdose, was found cp3 with a bottle, 0.5mg xanax #50 with empty bottle filled 01/09 and Baclofen 10mg #30 empty bottle filled on 01/09. Context: Method: the patient has a confirmed or suspected ingestion, of benzodiazepines, muscle relaxer. many tablets pulled from mouth. Associated signs and symptoms: Pertinent positives: apnea, Pertinent negatives: respiratory and neruo depression. Severity of symptoms: At their worst the symptoms were severe incapacitating. Unable to obtain HPI due to altered mental status, patient is on ventilator. jpatient intubated by ems noted to have very tight jaw- given ketamine and succinylcholine to intubate. intubated with 7.5 ett. 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 - Family history:: not pertinent. - Social history:: Smoking status: unknown. - Unable to obtain history due to: altered mental status, patient is on ventilator. ROS: 18:47 Constitutional: Negative for fever, chills, and weight loss. cp3 18:47 Unable to obtain ROS due to altered mental status, comatose state. Exam: 18:47 Abdomen/GI: Soft, non-tender, with normal bowel sounds. No distension or tympany. No cp3 guarding or rebound. No evidence of tenderness throughout. Female : Normal external genitalia. 18:47 Constitutional: The patient appears patient is unresponsive, intubated, gcs 3. pupils fixed, non reactive, pinpoint, no response to pain 18:47 Head/face: 18:47 Chest/axilla: Inspection: no acute changes. 18:47 Cardiovascular: Rate: normal, Rhythm: regular, Pulses: no pulse deficits are appreciated, Heart sounds: normal, Edema: is not appreciated. 18:47 Respiratory: the patient does not display signs of respiratory distress, Respirations: Breath sounds: no acute changes, Respiratory rate: no respiratory effort 18:47 Skin: skin cool and dry, cap refill less than 2. 18:47 Unable to obtain exam due to Vital Signs: 18:31 BP 104 / 67; Pulse 74; Resp 19; Temp 94.4; Pulse Ox 100% on ETT vent; [facility] 19:07 BP 126 / 56; Pulse 63; Resp 16; Temp 95.5; Pulse Ox 100% on ETT vent; [facility] 19:30 BP 127 / 72; Pulse 65; Resp 16; Temp 95.5; Pulse Ox 100% on 40% FiO2 ETT vent; [facility] 20:00 BP 124 / 83; Pulse 68; Resp 16; Temp 96.1; Pulse Ox 100% on 40% FiO2 ETT vent; [facility] 20:30 BP 123 / 78; Pulse 71; Resp 16; Temp 96.9; Pulse Ox 100% on 40% FiO2 ETT vent; [facility] 21:00 BP 122 / 73; Pulse 76; Resp 16; Temp 97.8; Pulse Ox 100% on 40% FiO2 ETT vent; [facility] 21:30 BP 120 / 82; Pulse 81; Resp 16 A; Temp 99.7(Ca); Pulse Ox 100% on 40% FiO2 ETT vent; [facility] 22:00 BP 132 / 79; Pulse 81; Resp 16 A; Temp 99.7(Ca); Pulse Ox 100% on 40% FiO2 ETT vent; [facility] 22:30 BP 131 / 80; Pulse 80; Resp 16; Temp 100.2; Pulse Ox 98% on 40% FiO2 ETT vent; [facility] [place] Coma Score: 18:47 Eye Response: none(1). Motor Response: none(1). Verbal Response: none(1). Total: 3. cp3 20:30 Eye Response: none(1). Modifying Factors: Intubated. Motor Response: none(1). Verbal sp4 Response: none(1). Total: 3. Ventilator: 18:47 Fi02: 100%; Rate: 16min; T.V.: 500ml; Peep: 5cm; Mode: SIMV; ET tube: 7 fr (Oral); cp3 Procedures: 18:47 Performed ventilator management: initiated. . abg interpretation at 632pm - ph 7.4, cp3 pc02 34, po2 634- 100% o2 decreased to 60%. MDM: 18:24 Patient medically screened. cp3 18:47 Differential diagnosis: Ingestion/exposure to xanax, baclofen over medication, closed cp3 head injury. Data reviewed: vital signs, nurses notes, EMS record. Consideration of Admission/Observation Patient was admitted/placed on observation. 20:30 ED course: Patient care assumed from daytime MD. estimated at 5 PM EMS arrived as a sp4 welfare check on the patient. Patient was found unresponsive possible overdose on baclofen and Xanax. Patient was intubated by EMS size 7 ET tube patient's initial GCS was 3. At this time patient is off sedation GCS remains 3 however pupils are constricted and fixed. . 21:24 ED course: Patient remains generally unresponsive, pupils are pinpoint but otherwise no sp4 sign of brainstem function, negative corneal reflex, negative oculocephalic reflex, negative gag reflex, completely flaccid, no sign of posturing. ED course: Patient was discussed with refresh technician states patient may be managed here in ICU without a problem. . 01/15 18:24 Order name: Basic Metabolic Panel; Complete Time: 19:22 3 01/15 18:24 Order name: CBC with Diff; Complete Time: 19:06 3 01/15 18:24 Order name: Hepatic Function; Complete Time: 19:22 3 01/15 18:24 Order name: Magnesium; Complete Time: 19:22 3 01/15 18:24 Order name: Protime (+inr); Complete Time: 19:22 3 01/15 18:24 Order name: Ptt, Activated; Complete Time: 19:22 3 01/15 18:24 Order name: Troponin High Sensitivity; Complete Time: 19:22 3 01/15 18:24 Order name: Urinalysis W/Microscopic cp3 01/15 18:24 Order name: Arterial Blood Gas; Complete Time: 19:22 3 01/15 18:27 Order name: Lactate w/ 2H reflex if indic.; Complete Time: 19:22 cp3 01/15 18:27 Order name: Blood Culture Adult (2) cp3 01/15 19:47 Order name: Acetaminophen cp3 01/15 19:47 Order name: Salicylate cp3 01/15 19:48 Order name: UDS cp3 01/15 19:48 Order name: Test, Urine cp3 01/15 21:31 Order name: Comprehensive Metabolic Panel EDMS 01/15 21:31 Order name: Comprehensive Metabolic Panel EDMS 01/15 21:31 Order name: Comprehensive Metabolic Panel EDMS 01/15 21:32 Order name: CBC with Automated Diff EDMS 01/15 21:32 Order name: CBC with Automated Diff EDMS 01/15 21:32 Order name: CBC with Automated Diff EDMS 01/15 21:32 Order name: CBC with Automated Diff EDMS 01/15 21:32 Order name: Comprehensive Metabolic Panel EDMS 01/15 21:32 Order name: Magnesium EDMS 01/15 21:32 Order name: Magnesium EDMS 01/15 21:32 Order name: Magnesium EDMS 01/15 21:32 Order name: Magnesium EDMS 01/15 18:24 Order name: Chest Single View XRAY; Complete Time: 19:06 cp3 01/15 19:23 Order name: CT Facial Bones W/O Con; Complete Time: 20:44 cp3 01/15 19:54 Order name: Head C Spine Mpr Wo Con; Complete Time: 20:44 EDMS 01/15 18:24 Order name: EKG; Complete Time: 18:24 cp3 01/15 21:24 Order name: CONS Physician Consult EDMS 01/15 21:32 Order name: NPO EDMS 01/15 18:24 Order name: Cardiac monitoring; Complete Time: 18:33 cp3 01/15 18:24 Order name: EKG - Nurse/Tech; Complete Time: 18:33 cp3 01/15 18:24 Order name: IV Saline Lock; Complete Time: 18:53 cp3 01/15 18:24 Order name: Labs collected and sent; Complete Time: 18:53 cp3 01/15 18:24 Order name: NPO; Complete Time: 18:33 cp3 01/15 18:24 Order name: O2 Per Protocol; Complete Time: 18:33 cp3 01/15 18:24 Order name: O2 Sat Monitoring; Complete Time: 18:33 cp3 01/15 18:24 Order name: Leger; Complete Time: 18:33 cp3 01/15 19:05 Order name: Misc. Order: bear hugger for hypothermia; Complete Time: 19:42 cp3 01/15 23:10 Order name: NG Tube; Complete Time: 23:10 pf1 EC:47 Rate is 63 beats/min. Rhythm is regular. QRS [place] is Normal. [place] interval is normal. QRS cp3 interval is normal. QT interval is normal. No Q waves. T waves are Normal. No ST changes noted. Administered Medications: 19:03 Drug: lactated ringers Solution 1000 ml Route: IV; Rate: bolus; Site: left antecubital; jl7 21:28 Follow up: Response: No adverse reaction; IV Status: Completed infusion; IV Intake: jw7 1000ml 19:42 Drug: Rocephin IV 2 grams Route: IV; Rate: calculated rate; Site: right antecubital; jw7 21:28 Follow up: Response: No adverse reaction; IV Status: Completed infusion; IV Intake: [id number] Disposition Summary: 01/15/23 21:23 Hospitalization Ordered Hospitalization Status: Inpatient Admission sp4 Provider: Geraldo Villegas4 Location: Intensive Care Unit sp4 Condition: Serious sp4 Problem: new sp4 Symptoms: are unchanged sp4 Bed/Room Type: Standard sp4 Room Assignment: 3-(01/15/23 21:50) 9 Diagnosis - Overdose of benzodiazepines and baclofen, intentional overdose, cerebral hypoxia, sp4 - Unresponsive condition, respiratory failure, hypothermia sp4 Forms: - Medication Reconciliation Form sp4 - SBAR form sp4 - Leadership Thank You Letter sp4 Critical care time excluding procedures: 19:16 Critical care time: Bedside Care: 65 minutes. Total time: 65 minutes cp3 Signatures: Dispatcher [employer] Sha Jones MD MD cp3 Jim Mireles RN RN jl7 Delisa Gaona RN RN ll1 Lory Frost RN RN jw7 Dorothy Cabrales RN RN mb9 Alejandrina Fletcher RN RN pf1 Gene Larsen MD MD sp4 Corrections: (The following items were deleted from the chart) 19:16 18:47 FiO2 100%, Rate 16 min, T.V. 500 ml, Peep 5 cm, Mode: SIMV, ET 7.5 mm Oral, cp3 cp3 19:53 19:25 C Spine Wo Con+CT.RAD.BRZ ordered. EDMS EDMS 19:54 18:32 Head Brain Wo Cont+CT.RAD.BRZ ordered. EDMS EDMS 21:50 21:23 sp4 mb9
--- NOTE | 2023-01-15 21:23 | ER ---
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 Found pill ll1 bottles on the floor. Narcan 4 MG did not help, intubated 7.0 tube. Succinylcholine 100 MG and Ketamine 100 MG given. 18 G R AC. Coronavirus screen: Client denies travel out of the [place] in the last 14 days. At this time, the client does not indicate any symptoms associated with coronavirus-19. Ebola Screen: Patient denies travel to an Ebola-affected area in the 21 days before illness onset. Initial Sepsis Screen: Does the patient meet any 2 criteria? Altered Mental Status. No. Patient's initial sepsis screen is negative. Risk Assessment: Do you want to hurt yourself or someone else? Patient reports desire/thoughts of hurting themselves or someone else. Provider notified. Onset of symptoms was January 15, 2023. 18:16 Method Of Arrival: EMS: [facility] 1 18:16 Acuity: TREVOR 1 ll1 19:02 Initial Sepsis Screen: Does the patient have a suspected source of infection? No. jl7 Patient's initial sepsis screen is negative. Triage Assessment: 18:15 General: Appears unresponsive. Behavior is unresponsive. Pain: Unable to use pain jl7 scale. Patient is unresponsive. Neuro: Level of Consciousness is unresponsive. Cardiovascular: Heart tones present Rhythm is regular. Respiratory: Airway via oral intubation Respiratory effort is even, unlabored, Respiratory pattern is symmetrical. Derm: Skin is mottled. 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 - Family history:: not pertinent. - Social history:: Smoking status: unknown. - Unable to obtain history due to: altered mental status, patient is on ventilator. Screenin:54 Abuse screen: unable to obtain. Nutritional screening: unable to obtain. Tuberculosis jl7 screening: unable to obtain. Assessment: 18:20 Reassessment: No changes from previously documented assessment. [place] poison ll1 control Micki contacted. Case # [id number]. Toxic labs. 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 For agitation or seizures dive benzo's. Baclofen mimics brain . Half life 2.5-4 hours, elimination time 6 hours. Watch for hypotension and hypothermia for 6-8 hours. IV fluids and vasopressors PRN. Dr. Jackson informed. 20:03 General: Appears in no apparent distress. intubated. Behavior is unresponsive. jw7 intubated. Pain: Unable to use pain scale. Patient is unresponsive. Neuro: Level of Consciousness is unresponsive. Cardiovascular: Capillary refill < 3 seconds Clubbing of nail beds is absent JVD is absent Patient's skin is warm and dry. 20:03 Respiratory: Ventilator assessment: ET Tube: 7.0 Ventilator Mode: Synchronized jw7 Intermittent Mandatory Ventilation (SIMV). Tidal Volume: 500 Respiratory Rate: 16 FiO2: 40% PEEP: 5. 20:03 GI: unable to obtain, pt intubated. : Leger in place. jw7 21:00 General: : Andrew Gaona # [phone]. jw7 21:23 Reassessment: Patient appears in no apparent distress at this time. No changes from jw7 previously documented assessment. intubated. Overdose: 22:34 [place] Suicide Severity Screening: "In the past month, have you wished you were jw7 or wished you could go to sleep and not wake up?" unable to access due to pt unresponsive and intubated. "In the past month, have you actually had any thoughts of killing yourself?" unable to access, pt is unresponsive and intubated "In your lifetime, have you ever done anything, started to do anything, or prepared to do anything to end your life?" unable to access, pt is unresponsive and intubated. Vital Signs: 18:31 BP 104 / 67; Pulse 74; Resp 19; Temp 94.4; Pulse Ox 100% on ETT vent; jl7 19:07 BP 126 / 56; Pulse 63; Resp 16; Temp 95.5; Pulse Ox 100% on ETT vent; jl7 19:30 BP 127 / 72; Pulse 65; Resp 16; Temp 95.5; Pulse Ox 100% on 40% FiO2 ETT vent; jw7 20:00 BP 124 / 83; Pulse 68; Resp 16; Temp 96.1; Pulse Ox 100% on 40% FiO2 ETT vent; jw7 20:30 BP 123 / 78; Pulse 71; Resp 16; Temp 96.9; Pulse Ox 100% on 40% FiO2 ETT vent; jw7 21:00 BP 122 / 73; Pulse 76; Resp 16; Temp 97.8; Pulse Ox 100% on 40% FiO2 ETT vent; jw7 21:30 BP 120 / 82; Pulse 81; Resp 16 A; Temp 99.7(Ca); Pulse Ox 100% on 40% FiO2 ETT vent; jw7 22:00 BP 132 / 79; Pulse 81; Resp 16 A; Temp 99.7(Ca); Pulse Ox 100% on 40% FiO2 ETT vent; jw7 22:30 BP 131 / 80; Pulse 80; Resp 16; Temp 100.2; Pulse Ox 98% on 40% FiO2 ETT vent; jw7 Sophia Coma Score: 18:47 Eye Response: none(1). Motor Response: none(1). Verbal Response: none(1). Total: 3. cp3 20:30 Eye Response: none(1). Modifying Factors: Intubated. Motor Response: none(1). Verbal sp4 Response: none(1). Total: 3. ED Course: 18:15 Patient arrived in ED. ll1 18:16 Arm band placed on Patient placed in an exam room, on a stretcher. ll1 18:18 Triage completed. ll1 18:19 Sha Jackson MD is Attending Physician. cp3 18:31 Jim Mireles RN is Primary Nurse. jl7 18:36 Chest Single View XRAY In Process Unspecified. EDMS 18:45 Second set of blood cultures drawn by ga. Maintain EMS IV. Dressing intact. Good blood jl7 return noted. Site clean \\T\\ dry. Gauge \\T\\ site: 18 g right AC. Thermoregulation: warm blanket given to patient. 18:50 Initial lab(s) drawn, by me, sent to lab. First set of blood cultures drawn by me. jl7 18:54 Patient has correct armband on for positive identification. jl7 18:54 Inserted saline lock: 18 gauge in left antecubital area, using aseptic technique. Blood jl7 collected. 19:12 Leger cath inserted, using sterile technique, 16 Fr., by me, balloon inflated, to jl7 gravity drainage, urine specimen collected. 19:54 Head C Spine Mpr Wo Con In Process Unspecified. EDMS 19:56 CT Facial Bones W/O Con In Process Unspecified. EDMS 20:06 Attending Physician role handed off by Sha Jackson MD sp4 20:06 Gene Larsen MD is Attending Physician. sp4 21:22 Geraldo Villegas is Hospitalizing Provider. sp4 21:59 Salicylate Sent. jw7 21:59 Test, Urine Sent. jw7 21:59 UDS Sent. jw7 22:33 No provider procedures requiring assistance completed. Patient admitted, IV remains in jw7 place. 22:34 Provided Education on: pt is unresponsive and intubated. jw7 23:00 NGT: inserted 16 Fr. other left mouth OG placed verified placement of air over stomach. pf1 Administered Medications: 19:03 Drug: lactated ringers Solution 1000 ml Route: IV; Rate: bolus; Site: left antecubital; jl7 21:28 Follow up: Response: No adverse reaction; IV Status: Completed infusion; IV Intake: jw7 1000ml 19:42 Drug: Rocephin IV 2 grams Route: IV; Rate: calculated rate; Site: right antecubital; jw7 21:28 Follow up: Response: No adverse reaction; IV Status: Completed infusion; IV Intake: [id number] Medication: 18:54 VIS not applicable for this client. jl7 Intake: 21:28 IV: 20ml; Total: 20ml. jw7 21:28 IV: 1000ml; Total: 1020ml. jw7 Ventilator: 18:47 Fi02: 100%; Rate: 16min; T.V.: 500ml; Peep: 5cm; Mode: SIMV; ET tube: 7 fr (Oral); cp3 Outcome: 21:23 Decision to Hospitalize by Provider. sp4 22:33 Admitted to ICU accompanied by nurse, via stretcher, room 3, with oxygen, on monitor, jw7 with chart, Report called to SAMMY Otero 22:33 Condition: stable 22:33 Instructed on pt is unresponsive and intubated 23:12 Patient left the ED. pf1 Signatures: Dispatcher [employer] Sha Jones MD MD cp3 Jim Mireles RN RN jl7 Delisa Gaona RN RN ll1 Lory Frost RN RN jw7 Alejandrina Fletcher RN RN pf1 Gene Larsen MD MD sp4 Corrections: (The following items were deleted from the chart) 20:26 20:03 General: Appears in no apparent distress. intubated. Behavior is unresponsive. jw7 intubated. jw7 20:28 20:20 Respiratory: Ventilator assessment: ET Tube: 7.0 Ventilator Mode: Synchronized jw7 Intermittent Mandatory Ventilation (SIMV). Tidal Volume: 500 Respiratory Rate: 16 FiO2: 40% PEEP: 5 jw7
--- NOTE | 2023-01-15 21:55 | P.HP ---
Certification for Inpatient Patient admitted to: Inpatient With expected LOS: <2 Midnights Patient will require the following post-hospital care: None Practitioner: I am a practitioner with admitting privileges, knowledge of patient current condition, hospital course, and medical plan of care. 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 Patient's landlord checked on patient after not seen her in a couple days. Xanax 0.5 mg #50 empty bottle found at bedside, baclofen 10 mg empty bottle filled on 838 found at bedside, suspected ingestion of benzodiazepine, muscle relaxers, many pills pulled from mouth per EMS. Patient was apneic, respiratory and neuro depression, patient was intubated by EMS and placed on ventilator. Patient had a very stiff drop was given ketamine, succinylcholine for intubation. HPI limited due to patient unarousable. GCS of 3,Sophia Coma Score: 18:47 Eye Response: none(1). Motor Response: none(1). Verbal Response: none(1). Total: 3. 20:30 Eye Response: none(1). Modifying Factors: Intubated. Motor Response: none(1). Verbal Response: none(1). Total: 3. BP 104 / 67; Pulse 74; Resp 19; Temp 94.4; Pulse Ox 100% on ETT vent;Ventilator: 18:47 Fi02: 100%; Rate: 16min; T.V.: 500ml; Peep: 5cm; Mode: SIMV; ET tube: 7 fr (Oral); plan to admit for Diagnosis - Overdose of benzodiazepines and baclofen, intentional overdose, cerebral hypoxia, U nresponsive condition, respiratory failure, hypothermia Procedures: Performed ventilator management: initiated. . abg interpretation at 632pm - ph 7.4, cp3 pc02 34, po2 634- 100% o2 decreased to 60%. ECG: Rate is 63 beats/min. Rhythm is regular. QRS [place] is Normal. [place] interval is normal. QRS interval is normal. QT interval is normal. No Q waves. T waves are Normal. No ST changes noted. Laboratory evaluation WBCs 13.60, early left shift 87.7, hypocalcemia 8.3, magnesium elevated at 2.8, UA pending urine drug screen pending, chest x-ray lungs are clear, heart normal size, no acute abnormality, CT of the head cervical spine IMPRESSION: No acute intracranial abnormality is seen. A cervical fracture is not visualized. CT of the face IMPRESSION: Negative for a facial fracture Allergies oxycodone Adverse Reaction (Verified 01/23/22 15:16) Nausea/Vomiting, dizziness Home Medications: ALPRAZolam [Xanax] 0.25 mg PO PRN PRN 05/16/21 Vortioxetine Hydrobromide [Trintellix] 20 mg PO BEDTIME 07/14/21 - Past Medical/Surgical History Past Medical History: Unable to obtain -: Anxiety -: 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 Past Surgical History: Unable to obtain Psychosocial/ Personal History: Recently Review of Systems is unable to be obtained Physical Examination - Vital Signs Pulse: 68 Pulse Ox (%): 100 - Physical Exam General: Unresponsive HEENT: Other (Dry mucous membranes) Neck: 2+ carotid pulse no bruit, JVD not distended Respiratory: Diminished, Other (Ventilator support) Cardiovascular: No edema, Normal pulses, Regular rate/rhythm Capillary refill: <2 Seconds Gastrointestinal: Normal bowel sounds Musculoskeletal: No clubbing, No swelling Integumentary: No rashes, No breakdown Neurological: Other (GCS is 3) - Studies Laboratory Data (last 24 hrs) 01/15/23 01/15/23 01/15/23 18:49 18:49 18:49 WBC 13.60 H Hgb 14.5 Hct 43.7 Plt Count 386 PT 10.2 INR 0.93 APTT 28.4 Sodium 141 Potassium 3.9 BUN 11 Creatinine 0.75 Glucose 87 Magnesium 2.8 H Total Bilirubin 0.7 AST 32 ALT 41 Alkaline Phosphatase 57 Assessment and Plan - Plan Assessment plan Acute hypoxic respiratory failure secondary to drug overdose Overdose of benzodiazepines and baclofen, intentional overdose cerebral hypoxia Unresponsive condition hypothermia Hypocalcemia Anxiety and depression DVT prophylaxis Acute hypoxic respiratory failure secondary to drug overdose Pulmonary consult Respiratory, ventilator support, Start Zosyn for possible additional aspiration pneumonia chest x-ray lungs are clear, Procedures: Performed ventilator management: initiated. . abg interpretation at 632pm - ph 7.4, cp3 pc02 34, po2 634- 100% o2 decreased to 60%. ECG: Rate is 63 beats/min. Rhythm is regular. QRS [place] is Normal. [place] interval is normal. QRS interval is normal. QT interval is normal. No Q waves. T waves are Normal. No ST changes noted. Laboratory evaluation WBCs 13.60, early left shift 87.7, hypocalcemia 8.3, magnesium elevated at 2.8, UA pending urine drug screen pending, chest x-ray lungs are clear, heart normal size, no acute abnormality, UA pending urine drug screen pending, Overdose of benzodiazepines and baclofen, intentional overdose Urine drug screen Leger catheter cerebral hypoxia Unresponsive condition Neurology consult N.p.o. CT of the head cervical spine IMPRESSION: No acute intracranial abnormality is seen. cervical fracture is not visualized. CT of the face IMPRESSION: Negative for a facial fracture hypothermia Monitor temperature, Hypocalcemia Trend electrolytes replace as needed's hypocalcemia 8.3, magnesium elevated at 2.8, low Anxiety and depression DVT prophylaxis Diet n.p.o. Full code Discharge Plan: Home Plan to discharge in: 48 Hours - Advance Directives Does patient have a Living Will: No Does patient have a Durable POA for Healthcare: No - Code Status/Comfort Care Code Status: Full Code Critical Care: Yes Time Spent Managing Pts Care (In Minutes): 70
[2023-01-15 22:27] LABS: Specific Gravity 1.007 (1.005-1.030)
[2023-01-15 22:30] LABS: Specific Gravity 1.008 (1.005-1.030); Urine Bacteria None Seen /HPF (<20); Urine Bilirubin NEGATIVE (Negative); Urine Blood Negative (Negative); Urine Clarity Clear (Clear); Urine Color Colorless (Yellow); Urine Glucose NEGATIVE (Negative); Urine Mucus Slight /HPF (None Seen); Urine Protein NEGATIVE (Negative); Urine RBC <5 /HPF (None Seen); Urine Urobilinogen Normal (Normal); Urine pH 5.5 (5.0-7.0)
[2023-01-15] MEDS ORDERED: PIPER TAZO 3.375 GM in NA CHLORIDE 0.9% 100 ML IV ONE (22:30)
[2023-01-15 22:34] LABS: Barbiturates NEGATIVE (NEGATIVE); Benzodiazepines POSITIVE (NEGATIVE); Cocaine NEGATIVE (NEGATIVE); METHAMPHETAM NEGATIVE (NEGATIVE); Methadone NEGATIVE (NEGATIVE); Opiates NEGATIVE (NEGATIVE); Phencyclidine NEGATIVE (NEGATIVE); THC Cannibis NEGATIVE (NEGATIVE)
[2023-01-15] MEDS: NA CHLORIDE 0.9% 1,000 ML IV SCH (23:35)
[2023-01-16] MEDS ORDERED: ACETAMINOPHEN 650MG/RECT SUPP PR PRN (02:34)
[2023-01-16 02:36] LABS: Absolute Lymphocytes (CBC) 1.4 K/uL (0.7-4.9); Hematocrit 40.7 % (36.0-45.0); Lymphocytes % 11.6 % (15.3-44.8); MPV 7.7 fL (7.6-11.3); Platelets 417 thou/uL (152-406)
[2023-01-16 02:54] LABS: Albumin 3.3 g/dL (3.4-5.0); Bilirubin Total 1.7 mg/dL (0.2-1.0); Magnesium 2.5 mg/dL (1.6-2.4); Phosphorus 2.3 mg/dL (2.5-4.9); Potassium 3.4 mEq/L (3.5-5.1); Protein, Total 6.4 g/dL (6.4-8.2)
[2023-01-16] MEDS: KCL 20 MEQ/100 mL IVPB 20 MEQ/100 ML BAG IV SCH ×2 (05:58→08:32)
[2023-01-16 05:59] LABS: Arterial Blood Carboxyhemoglob 0.9 % (0-1.5); Blood O2 Saturation 99.3 % (92-98.5)
[2023-01-16 06:01] LABS: Blood Gas Oxyhemoglobin 97.2 % (94-97)
[2023-01-16] MEDS: PIPER TAZO 3.375 GM in NA CHLORIDE 0.9% 100 ML IV SCH ×2 (08:31→17:00)
[2023-01-16] MEDS: ENOXAPARIN 40 MG/0.4 ML SQ SCH (08:32)
[2023-01-16] MEDS: NA CHLORIDE 0.9% 1,000 ML IV SCH ×2 (08:32→21:47)
[2023-01-16] MEDS ORDERED: POTASSIUM PHOS IN 0.9 % NACL 15 MMOL/250 ML BAG IV ONE (10:00)
--- NOTE | 2023-01-16 12:01 | P.CNS ---
Date of Consult: 01/23/23 Reason for Consult: Patient on a ventilator drug overdose Chief Complaint: Drug overdose History of Present Illness: Kidneys 42 years of age history of anxiety colon cancer to the emergency room with a drug overdose taking Xanax and baclofen patient took a significant dose in addition to 2 benzodiazepine was intubated transferred here to the ICU/patient is currently unresponsive movement of the feet the eyelids otherwise hemodynamically stable Allergies oxycodone Adverse Reaction (Verified 01/23/22 15:16) Nausea/Vomiting, dizziness Home Medications: ALPRAZolam [Xanax] 0.25 mg PO BIDP PRN 05/16/21 Aspirin [Adult Low Dose Aspirin EC] 81 mg PO DAILY 01/16/23 Baclofen 10 mg PO BEDTIME 01/16/23 Dextroamphetamine/Amphetamine [Adderall 10 mg Tablet] 10 mg PO BID 01/16/23 Gabapentin [Neurontin] 1,200 mg PO TID 01/16/23 Mfolate Calcium/Mecobalamin [Denovo Plus B12 Capsule] PO DAILY 01/16/23 Valacyclovir HCl [Valacyclovir] 500 mg PO DAILY 01/16/23 - Past Medical/Surgical History -: Anxiety -: 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 Psychosocial/ Personal History: Recently - Social History Smoking Status: Unknown if ever smoked Place of Residence: Home Review of Systems is unable to be obtained Physical Examination Temp Pulse Resp BP Pulse Ox 100.6 F 80 14 125/74 100 01/16/23 04:00 01/16/23 09:00 01/16/23 09:00 01/16/23 09:00 01/16/23 09:00 General: Unresponsive Respiratory: Clear to auscultation bilaterally Cardiovascular: No edema, Regular rate/rhythm, Normal S1 S2 Gastrointestinal: Normal bowel sounds, Soft and benign Neurological: Other (Pupils are reactive at 2 mm monitor reflexes are absent there is some flexion of the toes and responsive deep sternal rub some movement of the eyelids appears to be well kempt with nail maori) Laboratory Data (last 24 hrs) 01/15/23 01/15/23 01/15/23 18:49 18:49 18:49 WBC 13.60 H Hgb 14.5 Hct 43.7 Plt Count 386 PT 10.2 INR 0.93 APTT 28.4 Sodium 141 Potassium 3.9 BUN 11 Creatinine 0.75 Glucose 87 Magnesium 2.8 H Total Bilirubin 0.7 AST 32 ALT 41 Alkaline Phosphatase 57 - Problems (1) Drug overdose Current Visit: Yes Status: Acute Plan: Patient is 42 years of age admitted with a drug overdose of bank baclofen and benzodiazepine currently patient is unresponsive and had a slight fever mildly elevated white count normal oxygenation and ventilation by ABGs done on admission x-rays negative has been running some fever continue with Zosyn x-ray has been ordered cultures are pending Continue with present treatment patient is full code CT scan of the head is negative so far as bleeding or trauma is concerned continue with Zosyn may have aspirated waiting chest x-ray Qualifiers: Encounter type: initial encounter
[2023-01-16] MEDS: MIDAZOLAM HCL 2 MG/2 ML INJ IV PRN ×2 (12:33→14:36)
[2023-01-16] MEDS: FENTANYL CITR 100 MCG/2 ML IV PRN (13:04)
--- NOTE | 2023-01-16 13:22 | RAD REPORT ---
EXAM DESCRIPTION: Teresa Single View01/16/2023 12:44 pm CLINICAL HISTORY: Respiratory failure COMPARISON: January 15, 2023 FINDINGS: Endotracheal tube has its tip 4 centimeters above the top of the aortic arch. Nasogastric tube within the stomach. Tip is not included in the field of view. The lungs appear clear of acute infiltrate. The heart is normal size IMPRESSION: Endotracheal tube has its tip 4 centimeters above the top of the aortic arch. It should be advanced a couple of centimeters
[2023-01-16] MEDS ORDERED: LORazepam 2 MG/ML VIAL IV PRN (15:00)
--- NOTE | 2023-01-16 15:20 | P.PN ---
Subjective Date of Service: 01/16/23 Chief Complaint: Drug overdose Patient intubated and on mechanical ventilation. She is receiving Versed as needed for sedation and agitation. She remained unresponsive on the vent. Physical Examination - Vital Signs Temperature: 100.6 F Blood Pressure: 124/75 Pulse: 88 Respirations: 15 Pulse Ox (%): 100 - Studies Laboratory Data (last 24 hrs) 01/15/23 01/15/23 01/15/23 18:49 18:49 18:49 WBC 13.60 H Hgb 14.5 Hct 43.7 Plt Count 386 PT 10.2 INR 0.93 APTT 28.4 Sodium 141 Potassium 3.9 BUN 11 Creatinine 0.75 Glucose 87 Magnesium 2.8 H Total Bilirubin 0.7 AST 32 ALT 41 Alkaline Phosphatase 57 Assessment And Plan - Plan Physical Exam General: Unresponsive, intubated and on mechanical ventilation. HEENT: ET tube. Neck: JVD not distended Respiratory: Clear to auscultation bilaterally. Gastrointestinal: Normal bowel sounds Musculoskeletal: No clubbing, No swelling Integumentary: No rashes, No breakdown Neurological: Unresponsive, she moves all extremities, no focal motor deficit. Diagnosis Acute hypoxic respiratory failure secondary to drug overdose Overdose of benzodiazepines and baclofen, intentional overdose Metabolic encephalopathy hypothermia Hypocalcemia Anxiety and depression Plan Acute hypoxic respiratory failure secondary to drug overdose Pulmonary consulted Continue ventilator support Empiric IV Zosyn to cover aspiration pneumonitis. Overdose of benzodiazepines and baclofen, intentional overdose/metabolic encephalopathy Leger catheter Continue vent support for 24 hours. Sedation vacation after 24 hours to assess responsiveness. Hypothermia/fever Monitor temperature, Anxiety and depression Hold p.o. medications. DVT prophylaxis: Lovenox Diet n.p.o. Full code
[2023-01-16] MEDS ORDERED: DEXMEDETOMIDINE HCL 200 MCG in NA CHLORIDE 0.9% 98 ML IV SCH (17:00)
[2023-01-16] MEDS: HALOPERIDOL LACT 5 MG/ML INJ IV PRN (18:20)
--- NOTE | 2023-01-16 18:44 | EKG ---
Test Date: 2023-01-15 Test Time: 18:28:26 Service Order Dispatcher Chief: TM MEASUREMENT RESULTS: Intervals: Rate: 63 WY: 102 QRSD: 80 QT: 452 QTc: 462 [place]: P: 69 WY: 102 QRS: 87 T: 78 INTERPRETIVE STATEMENTS: Sinus rhythm with sinus arrhythmia with short [place] Otherwise normal ECG No previous ECG available for comparison Electronically Signed On 01-16-23 18:42:12 CDT by Vadim Valenzuela
[2023-01-16] MEDS ORDERED: ATROPINE SULF 1 MG/10 ML SYR IV ONE (19:59)
[2023-01-17] MEDS: PIPER TAZO 3.375 GM in NA CHLORIDE 0.9% 100 ML IV SCH ×2 (01:17→08:30)
[2023-01-17] MEDS: HALOPERIDOL LACT 5 MG/ML INJ IV PRN ×2 (01:47→11:37)
[2023-01-17] MEDS: ENOXAPARIN 40 MG/0.4 ML SQ SCH (08:30)
[2023-01-17] MEDS: NA CHLORIDE 0.9% 1,000 ML IV SCH ×2 (08:30→20:10)
[2023-01-17] MEDS ORDERED: WATER FOR INJ,STERILE 10 ML IM PRN (08:51)
[2023-01-17] MEDS: THIAMINE 200 MG/2 ML INJ IVP SCH ×2 (09:12→21:10)
[2023-01-17] MEDS: ZIPRASIDONE MESYLA 20 MG/VIAL IM PRN ×2 (09:32→15:30)
--- NOTE | 2023-01-17 12:22 | P.PN ---
Subjective Date of Service: 01/17/23 Chief Complaint: Drug overdose Subjective: Improving (Patient is improving psychotic self extubated yesterday) Review of Systems is unable to be obtained Physical Examination - Vital Signs Temperature: 97.5 F Blood Pressure: 118/79 Pulse: 99 Respirations: 17 Pulse Ox (%): 100 - Physical Exam General: Alert Neck: Supple Respiratory: Clear to auscultation bilaterally Assessment And Plan - Current Problems (Diagnosis) (1) Drug overdose Current Visit: Yes Status: Acute Plan: Patient admitted with a drug overdose she subsequently self extubated early stable however appears to be delirious and psychotic added some Geodon and thiamine and eating and drinking continue with IV fluid DC Zosyn no evidence of any infection cultures are negative oxygenation satisfactory Qualifiers: Encounter type: initial encounter
--- NOTE | 2023-01-17 14:09 | P.PN ---
Subjective Date of Service: 01/17/23 Chief Complaint: Drug overdose Patient self extubated yesterday. She is sedated with Precedex drip but easily arousable with inappropriate speech Physical Examination - Vital Signs Temperature: 97.5 F Blood Pressure: 118/79 Pulse: 99 Respirations: 17 Pulse Ox (%): 100 Assessment And Plan - Plan Physical Exam General: Somnolent, easily arousable, NAD HEENT: ET tube. Neck: JVD not distended Respiratory: Clear to auscultation bilaterally. Gastrointestinal: Normal bowel sounds Musculoskeletal: No clubbing, No swelling Integumentary: No rashes, No breakdown Neurological: no focal motor deficit. Intermittently agitated. Diagnosis Acute hypoxic respiratory failure secondary to drug overdose Overdose of benzodiazepines and baclofen, intentional overdose Metabolic encephalopathy hypothermia Hypocalcemia Anxiety and depression Plan Acute hypoxic respiratory failure secondary to drug overdose Pulmonary Dr. Hoover is following Continue Precedex drip, Geodon added for psychosis IV Zosyn discontinued. Patient will need inpatient psychiatry. Overdose of benzodiazepines and baclofen, intentional overdose/metabolic encephalopathy Leger catheter Continue vent support for 24 hours. Sedation vacation after 24 hours to assess responsiveness. Hypothermia/fever Monitor temperature, Anxiety and depression/suicide attempt Patient will need inpatient psych placement. Behavioral health evaluation once clinically stable. DVT prophylaxis: Lovenox Diet n.p.o. Full code
[2023-01-17] MEDS: DEXMEDETOMIDINE HCL 1,000 MCG in NA CHLORIDE 0.9% 490 ML IV SCH ×2 (14:38→21:11)
[2023-01-17] MEDS: VALPROATE SODIUM INJ 250 MG in NA CHLORIDE 0.9% 100 ML IV SCH (14:38)
--- NOTE | 2023-01-17 22:55 | CON ---
Reason For Consultation: Consultation called because of drug overdose and for neurological evaluatio n. History Of Present Illness: Ms. Gaona is a 42-year-old patient with history of colon cancer , depression, and Cadet syndrome along with anxiety, who was brought by EMS after she was checked on by her landlord after not being seen for a couple of days. She was found to be floor with bottles of Xanax 0.5 mg. There were 50 reportedly in there that were found to be empty. Baclofen 10 mg tablet s, was filled on December 13 and that was found at bedside and apparently also muscle relax ants, these were pulled out of her mouth by EMS. She was found to be apneic with respiratory depress ion and to be intubated in the field and ventilated. She was given ketamine, succinylcholine, and in tubated. She had a Sophia coma scale of 3. Her head CT scan showed no acute ischemic hemorrhagic f indings. She had a cervical spine x-ray showing no fractures. Facial bone CT scan showed no fractur es. Chest x-ray showed the endotracheal tube was 4 cm above the top of the aortic arch and noted thi s should be advanced a couple of centimeters, but no evidence of any other issues, lungs were clear. Heart was of normal size. Her laboratory studies on admission showed white blood cell count was elev ated to 13.6, and neutrophils 87. Yesterday, it was 11.9, and neutrophils down to 80.6. INR normal at 0.93. Arterial blood gas on admission, pH 7.43, pCO2 34, PO2 334. Her chemistries, on admission, were completely normal except calcium slightly low at 8.3. Magnesium slightly elevated at 2.8. Yes terday, she did show a low potassium after receiving hydration 3.4, chloride 111, calcium remained at 8.3, slightly low and magnesium was elevated at 2.5 and total bilirubin 1.7. AST slightly elevated to 48, ALT normal at 39, alkaline phosphate is normal at 56. Her urinalysis was unremarkable. Her t oxicology screen positive for benzodiazepines, but was otherwise negative. Past Medical History: As noted. Past Surgical History: Unknown. Allergies: OXYCODONE. Medications: At home, alprazolam 0.25 mg as needed and Trintellix 20 mg at bedtime. Family History: Noncontributory. Review of Systems: Not reliable. The patient actually is lying in bed. Does have arm and leg restraints and says she w ants to get out. Physical Examination: Vital Signs: Blood pressure 127/85, pulse 77, respiratory rate 13, temperature 97.7, oxygen saturati on greater than 100% room air. General: Ms. Gaona is in ICU bed, sitting up, restrained. Head was somewhat down, but bended, raise d her head and answered questions, but wanted to be out of restraints, which she did have on the arms and legs. Staff notes that she would kick and punch at staff. HEENT: She appears normocephalic and atraumatic. No asymmetry is noted in the face, arm or legs. Lungs: Good air movement. Abdomen: Soft. Extremities: No edema in the extremities. She was not ambulated. Assessment: Ms. Gaona is a 42-year-old patient with a potential drug overdose who has no focal defic its at this point. EEG not available. She is showing no evidence of any again focal neurological de ficits or seizure activity at least clinically. Plan: Continue with hydration and correction of electrolytes and management of her comorbidities. N o further neurological workup at this time. She likely should recover without significant deficits. LB/MODL Voice ID: [id number] Report ID: [id number]
[2023-01-18] MEDS: FENTANYL CITR 100 MCG/2 ML IV PRN (01:52)
[2023-01-18 04:37] LABS: Absolute Lymphocytes (CBC) 1.8 K/uL (0.7-4.9); Hematocrit 32.5 % (36.0-45.0); Lymphocytes % 21.1 % (15.3-44.8); MCV 97.3 fL (80-100); MPV 8.1 fL (7.6-11.3); Platelets 336 thou/uL (152-406); RBC Red Blood Cell Count 3.34 M/uL (3.86-4.86)
[2023-01-18 05:02] LABS: Albumin 2.8 g/dL (3.4-5.0); Potassium 3.5 mEq/L (3.5-5.1); Protein, Total 5.9 g/dL (6.4-8.2)
[2023-01-18] MEDS: NA CHLORIDE 0.9% 1,000 ML IV SCH (05:56)
[2023-01-18] MEDS ORDERED: DEXMEDETOMIDINE HCL 1,000 MCG in NA CHLORIDE 0.9% 490 ML IV SCH (09:00)
[2023-01-18] MEDS ORDERED: POTASSIUM 25 MEQ EFFERV TAB PO ONE ×2 (09:00)
[2023-01-18] MEDS: THIAMINE 200 MG/2 ML INJ IVP SCH ×2 (09:44→20:26)
[2023-01-18] MEDS: ENOXAPARIN 40 MG/0.4 ML SQ SCH (09:44)
[2023-01-18] MEDS: VALPROATE SODIUM INJ 250 MG in NA CHLORIDE 0.9% 100 ML IV SCH (10:14)
--- NOTE | 2023-01-18 14:33 | P.PN ---
Subjective Date of Service: 01/18/23 Chief Complaint: Drug overdose Patient is more awake and interactive but noted inappropriate speech. She has no new complaint. Physical Examination - Vital Signs Temperature: 97.4 F Blood Pressure: 141/89 Pulse: 147 Respirations: 15 Pulse Ox (%): 100 Assessment And Plan - Plan Physical Exam General: Somnolent, easily arousable, NAD HEENT: ET tube. Neck: JVD not distended Respiratory: Clear to auscultation bilaterally. Gastrointestinal: Normal bowel sounds Musculoskeletal: No clubbing, No swelling Integumentary: No rashes, No breakdown Neurological: no focal motor deficit. Intermittently agitated. Diagnosis Acute hypoxic respiratory failure secondary to drug overdose Overdose of benzodiazepines and baclofen, intentional overdose Metabolic encephalopathy hypothermia Hypocalcemia Anxiety and depression Plan Acute hypoxic respiratory failure secondary to drug overdose Acute respiratory failure resolved. Pulmonary Dr. Hoover is following Continue Precedex drip, Geodon added for psychosis IV Zosyn discontinued. Patient will need inpatient psychiatry. Overdose of benzodiazepines and baclofen, intentional overdose/metabolic encephalopathy Leger catheter removed. Patient is awake but exhibiting psychosis. Recommend inpatient psychiatry Mental health to evaluate for inpatient psychiatry. Anxiety and depression/suicide attempt Patient will need inpatient psych placement. Mental health evaluation. DVT prophylaxis: Lovenox Diet: Regular Full code
[2023-01-18] MEDS: QUETIAPINE 25 MG TAB PO SCH (20:26)
[2023-01-18] MEDS: HYDROCODONE/APAP 5/325 MG TAB PO PRN (20:35)
[2023-01-19] MEDS ORDERED: POTASSIUM CL SA 10 MEQ TAB PO ONE ×2 (06:45→20:00)
[2023-01-19] MEDS: ENOXAPARIN 40 MG/0.4 ML SQ SCH (08:14)
[2023-01-19] MEDS: QUETIAPINE 25 MG TAB PO SCH ×2 (08:14→20:14)
[2023-01-19] MEDS: THIAMINE 200 MG/2 ML INJ IVP SCH (08:14)
--- NOTE | 2023-01-19 09:38 | P.PN ---
Subjective Date of Service: 01/18/23 Chief Complaint: Delirium Subjective: Improving (Patient is improving doing very well more alert oriented responsive cooperative) Review of Systems Unremarkable Physical Examination - Vital Signs Temperature: 97.2 F Blood Pressure: 122/75 Pulse: 112 Respirations: 18 Pulse Ox (%): 99 - Physical Exam General: Alert, In no apparent distress, Oriented x3 Gastrointestinal: Normal bowel sounds Musculoskeletal: No clubbing, No swelling Neurological: Normal speech, Normal strength at 5/5 x4 extr (Patient is alert oriented x3 members for medical history in detail) Assessment And Plan - Current Problems (Diagnosis) (1) Drug overdose Current Visit: Yes Status: Acute Plan: Patient is 42 years of age admitted with drug overdose and delirium she self extubated now is doing better there is no fever or pneumonia can DC all antibiotic patient is very alert responsive psychosis has resolved continue with IV thiamine very alert denies any suicidal intention vital signs are all satisfactory oxygenation satisfactory sugars are also negative Qualifiers: Encounter type: initial encounter
[2023-01-19] MEDS: HYDROCODONE/APAP 5/325 MG TAB PO PRN ×2 (11:13→20:14)
--- NOTE | 2023-01-19 13:23 | P.PN ---
Subjective Date of Service: 01/19/23 Chief Complaint: Delirium Patient is awake and alert. She has been complaining of low back pain and poor sleep last night. Physical Examination - Vital Signs Temperature: 97.2 F Blood Pressure: 132/91 Pulse: 104 Respirations: 16 Pulse Ox (%): 98 Assessment And Plan - Plan Physical Exam General: Awake, NAD Neck: JVD not distended Respiratory: Clear to auscultation bilaterally. Gastrointestinal: Normal bowel sounds Musculoskeletal: No clubbing, No swelling Integumentary: No rashes, No breakdown Neurological: no focal motor deficit. Diagnosis Acute hypoxic respiratory failure secondary to drug overdose Overdose of benzodiazepines and baclofen, intentional overdose Metabolic encephalopathy hypothermia Hypocalcemia Anxiety and depression Plan Acute hypoxic respiratory failure secondary to drug overdose Acute respiratory failure resolved. Pulmonary Dr. Hoover is following Off Precedex drip. Geodon IM prn added for psychosis. Patient started on Seroquel. Titrate Seroquel. Patient will need inpatient psychiatry. She is voluntary for inpatient psychiatry pending acceptance. Overdose of benzodiazepines and baclofen, intentional overdose/metabolic encephalopathy Leger catheter removed. Patient is awake and more appropriate Has been evaluated by mental health who agreed to inpatient psych placement. Anxiety and depression/suicide attempt Awaiting inpatient psychiatry placement. She is clinically stable for transfer to inpatient psychiatry. DVT prophylaxis: Lovenox Diet: Regular Full code
[2023-01-19] MEDS: THIAMINE HCL 100 MG TABLET PO SCH (20:14)
[2023-01-20 05:18] LABS: Potassium 3.5 mEq/L (3.5-5.1)
[2023-01-20] MEDS: THIAMINE HCL 100 MG TABLET PO SCH ×2 (08:00→21:55)
[2023-01-20] MEDS: ENOXAPARIN 40 MG/0.4 ML SQ SCH (08:00)
[2023-01-20] MEDS: QUETIAPINE 25 MG TAB PO SCH ×2 (08:00→21:55)
[2023-01-20] MEDS ORDERED: POTASSIUM CL SA 10 MEQ TAB PO ONE (09:00)
[2023-01-20] MEDS: HYDROCODONE/APAP 5/325 MG TAB PO PRN ×2 (09:15→18:25)
--- NOTE | 2023-01-20 12:14 | P.PN ---
Subjective Date of Service: 01/20/23 Chief Complaint: Delirium Patient has no new complaint. Her speech has been appropriate and pleasant. Physical Examination - Vital Signs Temperature: 98.5 F Blood Pressure: 122/78 Pulse: 74 Respirations: 16 Pulse Ox (%): 96 Assessment And Plan - Plan Physical Exam General: Awake, NAD Neck: JVD not distended Respiratory: Clear to auscultation bilaterally. Gastrointestinal: Normal bowel sounds Musculoskeletal: No clubbing, No swelling Integumentary: No rashes, No breakdown Neurological: no focal motor deficit. Diagnosis Acute hypoxic respiratory failure secondary to drug overdose Overdose of benzodiazepines and baclofen, intentional overdose Metabolic encephalopathy hypothermia Hypocalcemia Anxiety and depression Plan Acute hypoxic respiratory failure secondary to drug overdose Acute respiratory failure resolved. Pulmonary Dr. Hoover is following Off Precedex drip. Geodon IM prn added for psychosis. Patient started on Seroquel. Patient clinically improved. Behavior is cur rently appropriate, confusion resolved. She is voluntary for inpatient psychiatry pending acceptance. She is clinically stable for transfer. Overdose of benzodiazepines and baclofen, intentional overdose/metabolic encephalopathy Leger catheter removed. Patient is awake and appropriate Inpatient psychiatric placement is pending. Psychiatry evaluation tomorrow. Anxiety and depression/suicide attempt Awaiting inpatient psychiatry placement. She is clinically stable for transfer to inpatient psychiatry. DVT prophylaxis: Lovenox Diet: Regular Full code
[2023-01-20 16:06] LABS: Calcium Oxalate Crystals- Ur Few /HPF (None Seen); Specific Gravity 1.025 (1.005-1.030); Urine Bacteria <20 /HPF (<20); Urine Bilirubin NEGATIVE (Negative); Urine Blood Trace (Negative); Urine Clarity Extremely Turbid (Clear); Urine Color Yellow (Yellow); Urine Glucose NEGATIVE (Negative); Urine Mucus 1+ /HPF (None Seen); Urine Protein TRACE (Negative); Urine Urobilinogen Normal (Normal)
[2023-01-21 01:57] VITALS: O2SAT 98
[2023-01-21 06:49] VITALS: BMI 23.1
[2023-01-21] MEDS: QUETIAPINE 25 MG TAB PO SCH (08:41)
[2023-01-21] MEDS: THIAMINE HCL 100 MG TABLET PO SCH (08:41)
[2023-01-21] MEDS: ENOXAPARIN 40 MG/0.4 ML SQ SCH (08:41)
[2023-01-21] MEDS: HYDROCODONE/APAP 5/325 MG TAB PO PRN (08:44)
--- NOTE | 2023-01-21 11:01 | P.PN ---
Subjective Date of Service: 01/21/23 Chief Complaint: Delirium Patient has no new complaint. She reports intermittent dizziness and attributes it to the Seroquel. Physical Examination - Vital Signs Temperature: 97.6 F Blood Pressure: 126/78 Pulse: 96 Respirations: 16 Pulse Ox (%): 100 - Studies Microbiology Data (last 24 hrs): 01/15/23 18:49 Blood - Blood Aerobic Blood Culture - Final No growth in 5 days. 01/15/23 18:49 Blood - Blood Anaerobic Blood Culture - Final No growth in 5 days. 01/15/23 18:42 Blood - Blood Aerobic Blood Culture - Final No growth in 5 days. 01/15/23 18:42 Blood - Blood Anaerobic Blood Culture - Final No growth in 5 days. Assessment And Plan - Plan Physical Exam General: Awake, NAD Neck: JVD not distended Respiratory: Clear to auscultation bilaterally. Gastrointestinal: Normal bowel sounds Musculoskeletal: No clubbing, No swelling Integumentary: No rashes, No breakdown Neurological: no focal motor deficit. Diagnosis Acute hypoxic respiratory failure secondary to drug overdose Overdose of benzodiazepines and baclofen, intentional overdose Metabolic encephalopathy hypothermia Hypocalcemia Anxiety and depression Plan Acute hypoxic respiratory failure secondary to drug overdose Acute respiratory failure resolved. Pulmonary Dr. Hoover is following Off Precedex drip. Status post Geodon IM for psychosis. She is currently on Seroquel. Patient clinically improved. Behavior is currently appropriate, confusion resolved. She is planned for inpatient psych transfer. She is clinically stable for transfer. Overdose of benzodiazepines and baclofen, intentional overdose/metabolic encephalopathy Status post Leger catheter which has been removed. Patient is awake and appropriate Inpatient psychiatric placement is pending. I discussed case with Dr. Masterson and he plans to see patient today. Patient would prefer to go home rather than go to inpatient psych though she is voluntary. Anxiety and depression. Awaiting inpatient psychiatry placement. She is clinically stable for transfer to inpatient psychiatry. DVT prophylaxis: Lovenox Diet: Regular Full code
[2023-01-21 17:58] VITALS: BP 111/79; TEMP 97
--- NOTE | 2023-01-21 18:40 | P.DS ---
Admission Date: 01/15/23 Discharge Date: 01/21/23 Disposition: ROUTINE DISCHARGE Discharge Condition: FAIR Reason for Admission: Delirium Brief History of Present Illness: 42-year-old female with a past medical history of anxiety, colon cancer, depression, Cadet syndrome presented to the emergency room via EMS for drug overdose. Patient's landlord checked on patient after not seen her in a couple days. Xanax 0.5 mg #50 empty bottle found at bedside, baclofen 10 mg empty bottle filled found at bedside, suspected ingestion of benzodiazepine, muscle relaxers, many pills evacuated from her mouth per EMS. Patient was apne ic and was intubated by EMS and placed on ventilator. She was given ketamine, succinylcholine for intubation. Images unremarkable in the ED, blood work unremarkable. Patient was admitted to the ICU for further management. Hospital Course: Diagnosis Acute hypoxic respiratory failure secondary to drug overdose Overdose of benzodiazepines and baclofen, intentional overdose Metabolic encephalopathy hypothermia Hypocalcemia Anxiety and depression Patient admitted to the medical floor and the following medical problems addressed: Acute hypoxic respiratory failure secondary to drug overdose Patient became more awake but somnolent. She self extubated. She was stable on room air after extubation. Pulmonary Dr. Hamlin evaluated patient and assisted with management. She was on Precedex drip for severe agitation, later transitioned to IM Geodon and onto Seroquel. Patient became more appropriate on the Seroquel, normal behavior and was pleasant. Confusion resolved. Overdose of benzodiazepines and baclofen, intentional overdose/metabolic encephalopathy Status post Leger catheter which was removed. Patient became awake and appropriate. She was seen and evaluated by mental health and patient plan for inpatient psychiatry placement. She was seen 3 days later by psychiatry Dr. Masterson at which point patient was more appropriate, obey commands and pleasant. Dr. Masterson recommended discharge in the care of her significant other and follow-up with him in the office within 1 week. He also recommended to discharge with Cymbalta, olanzapine and Lunesta. Vital Signs/Physical Exam: Temp Pulse Resp BP Pulse Ox 97.0 F 96 H 17 111/79 100 01/21/23 16:00 01/21/23 16:00 01/21/23 16:00 01/21/23 16:00 01/21/23 16:00 General: Alert, In no apparent distress, Oriented x3 HEENT: Mucous membr. moist/pink Neck: Supple, JVD not distended Respiratory: Clear to auscultation bilaterally, Normal air movement Cardiovascular: Regular rate/rhythm, Normal S1 S2 Gastrointestinal: Normal bowel sounds, Soft and benign, Non-distended Musculoskeletal: No swelling, No tenderness Integumentary: No rashes, No cyanosis Neurological: Normal speech, Normal strength at 5/5 x4 extr Laboratory Data at Discharge: WBC 8.40 thou/uL (4.3-10.9) 01/18/23 04:05 Hgb 11.2 g/dL (12.0-15.0) L 01/18/23 04:05 Hct 32.5 % (36.0-45.0) L 01/18/23 04:05 Plt Count 336 thou/uL (152-406) 01/18/23 04:05 PT 10.2 SECONDS (9.5-12.5) 01/15/23 18:49 INR 0.93 01/15/23 18:49 APTT 28.4 SECONDS (24.3-36.9) 01/15/23 18:49 Sodium 138 mEq/L (136-145) 01/20/23 04:44 Potassium 3.5 mEq/L (3.5-5.1) 01/20/23 04:44 BUN 4 mg/dL (7-18) L 01/20/23 04:44 Creatinine 0.54 mg/dL (0.55-1.02) L 01/20/23 04:44 Glucose 98 mg/dL (74-106) 01/20/23 04:44 Phosphorus 2.3 mg/dL (2.5-4.9) L 01/16/23 01:54 Magnesium 2.0 mg/dL (1.6-2.4) 01/18/23 04:05 Total Bilirubin 1.0 mg/dL (0.2-1.0) 01/18/23 04:05 AST 46 U/L (15-37) H 01/18/23 04:05 ALT 35 U/L (13-56) 01/18/23 04:05 Alkaline Phosphatase 54 U/L (45-117) 01/18/23 04:05 Home Medications: Aspirin [Adult Low Dose Aspirin EC] 81 mg PO DAILY 01/16/23 Gabapentin [Neurontin] 1,200 mg PO TID 01/16/23 Mfolate Calcium/Mecobalamin [Denovo Plus B12 Capsule] 1 cap PO DAILY 01/16/23 Valacyclovir HCl [Valacyclovir] 500 mg PO DAILY 01/16/23 Duloxetine HCl [Cymbalta] 20 mg PO DAILY AT SUPPER #30 cap 01/21/23 Eszopiclone [Lunesta] 2 mg PO BEDTIME #30 tab 01/21/23 OLANZapine [Zyprexa*] 2.5 mg PO BID #60 tab 01/21/23 New Medications: Duloxetine HCl [Cymbalta] 20 mg PO DAILY AT SUPPER #30 cap Eszopiclone [Lunesta] 2 mg PO BEDTIME #30 tab OLANZapine [Zyprexa*] 2.5 mg PO BID #60 tab Followup: NONE,NONE [Primary Care Provider] - Time spent managing pt's care (in minutes): 36
[2023-01-21] MEDS ORDERED: QUETIAPINE 25 MG TAB PO SCH (21:00)
--- NOTE | 2023-01-22 14:50 | CON ---
Reason For Admission: Drug overdose. History was provided by both patient as well as patient's estranged . History Of Present Illness: The patient was [facility], and she was found by her estranged , and the apartment complex management as well as the local police, unresponsive, lying on the floor in her home. The patient stated that she did not remember all the details of what happened but noted that her kids had gone to school, and they were meant to be spending the week with their dad. She stated that she and her have been living apart for approximately 4 years now, but does get along very well. She stated that she was not overly depressed, but her anxiety was severe. She stated that she had gotten baclofen from her neurologist for chronic leg pains. Stated pain has been so terrible lately hence the additional medication. Stated that she had brought a 6-pack of some fruity alcohol drink and wanted to relax, and she started taking her alprazolam while she was drinking and that was all she could remember. She stated that currently she is not depressed but still very anxious. Denies suicidal ideation. Stated she did not have any reason to attempt suicide as she loved her kids so much, I never want to do that to them. She she is having surgery on lower limb to manage her chronic pain on Saturday on the 23 of January and the subsequent one on the 30 of January to help relieve the pains in her leg. The patient states that she never attempted suicide before and states this would have been accidental. The patient's corroborated her history of anxiety disorder and also taking Adderall for ADHD symptoms. On discussion with patient's ex-, with patient's consent, he stated that he has not observed any depressive symptoms as they just came back from a [place] vacation, but noted that she has been frustrated lately with chronic pain in her legs, which seems to have limited some of her physical function. He stated he had called that day because he was meant to pickling operator the kids, and when he did not get any response from her which he stated was unusual, he called the apartment complex, and they stated they have not seen her that day, so he was worried and subsequently called the police for wellness check. When he got to the house, he stated that the police already there, and the apartment complex opened the door for them to get in. So patient was unresponsive, but she was still breathing. Thus, EMS was called, and they brought her to the hospital. Since admission a week ago but treatment team and states they have observed that the patient was doing much better and seems to be back to her baseline. She even seems to be remorseful and seems to be future oriented. No psychosis. No mood swings or erratic behavior. Denies having access to a gun. Stated that if discharged, she will be living with her estranged for the time being. He also denies owing any gun at home and agreed to stay with her until she is seen by an outpatient psychiatrist. No history of PTSD. No history of drug abuse. Physical Examination: Vital Signs: Blood pressure 122/78, pulse rate 96, temperature is 97.6, and O2 saturation is 100% on room air. Mental Status Examination: The patient is a well-nourished female in ICU, dressed in home attire, sitting on the chair and watching TV. Denies any obvious acute cardiorespiratory distress. She is cooperative with the interview. Psychomotor activity is within normal limits. Speech is spontaneous, normal rate, rhythm, and volume. Mood is described as anxious. Affect is mood congruent. Thought process is linear, at times circumstantial. Thought content, no delusional thinking. Denies suicidal ideation apparently, although the patient was admitted for significant suicidal attempt, which she stated was accidental. No rumination. Fund of knowledge is fair. Language skills fair. Insight, judgement, and impulse control are limited to fair. Suicide Risk Assessment: The patient does have access to care. Her estrange is very supportive. No prior suicide attempts, though current episode was very significant. Does have support. No access to weapon. Estranged agreed to have patient live with him until she sees outpatient psychiatrist. The patient is currently not suicidal and she is future oriented. Diagnoses: 1. Major depressive disorder, recurrent severe without psychotic symptoms 2. Anxiety disorder, unspecified. 3. Insomnia. Plan: 1. Restart Cymbalta 20 mg p.o. q. day for depressive and anxiety symptoms. 2. Start olanzapine 2.5 mg p.o. b.i.d. for mood and depressive symptoms. 3. Start Lunesta 2 mg daily at bedtime for sleep (only 7 pills allowed to patient). Note that patient has failed trial of mirtazapine, trazodone, and doxepin. At this time, the patient does not require acute psychiatric hospitalization. The patient to be discharged to follow up with outpatient psychiatrist in 1 week. The patient will be discharged to her estranged . NORY/TREY Voice ID: [id number] Report ID: [id number]
== END 2023-01-21 20:00 | disposition home or self-care (01) | DRG 917 ==
LOC: ER 18:12 → ERHOLD 21:34 → 3RD-ICU 22:12
PROVIDERS: ADMIT Internal Medicine; ATTEND Internal Medicine
PROC: 5A1935Z Respiratory Ventilation, Less than 24 Consecutive Hours (ICD-10-PCS; principal; 2023-01-15)
PROC: 0BH17EZ Insertion of Endotracheal Airway into Trachea, Via Natural or Artificial Opening (ICD-10-PCS; 2023-01-15)
DX: T42.4X2A Poisoning by benzodiazepines, intentional self-harm, initial encounter (principal); G93.41 Metabolic encephalopathy; J96.01 Acute respiratory failure with hypoxia; F05 Delirium due to known physiological condition; F33.2 Major depressive disorder, recurrent severe without psychotic features; E83.51 Hypocalcemia; G47.00 Insomnia, unspecified; F41.9 Anxiety disorder, unspecified; T42.8X2A Poisoning by antiparkinsonism drugs and other central muscle-tone depressants, intentional self-harm, initial encounter; T68.XXXA Hypothermia, initial encounter; Z88.5 Allergy status to narcotic agent; Z78.1 Physical restraint status; Z63.5 Disruption of family by separation and divorce; Z90.49 Acquired absence of other specified parts of digestive tract; Z85.038 Personal history of other malignant neoplasm of large intestine
CPT/HCPCS: 36415; 51702; 70450; 70486; 71045; 72125; 76377; 80048; 80053; 80076; 80143; 80179; 80307; 81001; 81025; 82077; 82805; 83605; 83735; 84100; 84132; 84484; 85025; 85610; 85730; 87040; 87086; 87088; 93005; 94002; 94003; 99291; 99292; J0461; J0696; J1630; J1650; J2250; J2543; J3010; J3411; J3480; J3486; J7030; J7040; J7120